=== PATIENT | male | born 1980 | race Caucasian/White ===

== ENCOUNTER 2024-09-27 15:16 | Outpatient (CLI) | payer OTHER, SELFPAY ==
--- NOTE | ~2024-09-27 | XR_ITS ---
EXAMINATION: XR chest 2V 09/27/2024 15:30 INDICATION: Cough PROCEDURE: 2 view chest COMPARISON: No prior studies for comparison. FINDINGS: The lungs are clear. There are calcified granulomas in the right lung. The cardiomediastina l silhouette is within normal limits. There are no pleural effusions. There is no pneumothorax susp ected. IMPRESSION: 1: NO ACUTE CARDIOPULMONARY DISEASE. Reviewed, dictated and finalized at location B. ING MANAGER
--- OUTSIDE RECORDS SUMMARY | 2024-10-03 23:53 | XMS_ITS | Clinical Summary ---
Author Organization [facility] [employer] Address [address] [place] [address] Care Team Providers Care Sueding Machine Operator Name Role Phone Unavailable Primary Care Provider Unavailabl e Source Comments [facility],non-owned Affiliates and Associated Physician Practices is amultiple site organization consisting of ambulatory clinics and hospital sitesin [place], [place] and [place]. This disclosure is being madepursuant to the Care Everywhere program and may not contain all information available regarding this patient. Last updated 18.[facility] [employer] Allergies No known active allergies Medications * Be aware that medications may not be up to date on this document. Alwaysverify current medications with the patient. Medication Sig Dispensed Refills Start Date End Date Status meloxicam (MOBIC) 15 MG tabletIndications:Rot ator cuff injury, right, initial encounter Take 1 (one) tablet by mouth once daily 30 tablet 2 02/13/2021 Active Active Problems No known active problems Immunizations Name Administration Dates Next Due INFLUENZA VACCINE, QUADR. (F LUZONE; FLULAVAL; FLUARIX; AFLURIA QUADRIVALENT; 6MO+), 0.5 ML (IIV4) 08/03/2020 Family History Medical History Relation Name Comments Glaucoma Mother Relation Name Status Comments Mother Social History Tobacco Use Types Packs/Day Years Used Date Smoking Tobacco: Never Smokeless Tobacco: Never Alcohol Use Standard Drinks/Week Comments Yes 0 (1 standard drink = 0.6 oz pur e alcohol) occasional Sex and Gender Information Value Date Recorded Sex Assigned at Not on file Gender Identity Not on file Sexual Orientation Not on file Last Filed Vital Signs Vital Sign Reading Time Taken Comments Blood Pressure - - Pulse - - Temperature - - Respiratory Rate - - Oxygen Saturation - - Inhaled Oxygen Concentration - - Weight 78 kg (172 lb) 02/13/2021 8:34 AM CDT Height 182.9 cm (6') 02/13/2021 8:34 AM CDT Body Mass Index 23.33 02/13/2021 8:34 AM CDT Plan of Treatment Health Maintenance Due Date Last Done Comments COLOGUARD (AGES 45-75) - COL ON CA SCREENING 1978 COLON MONITORING 1978 COLONOSCOPY - COLON CA SCREENING 1978 CT COLONOGRAPHY - COLON CA SCREENING 1978 Colorectal Cancer Screening 1978 FIT - COLON CA SCREENING 1978 FLEX SIG - COLON CA SCREENING 1978 LIPID TESTING 1978 HIV SCREENING 1993 HEPATITIS C SCREENING 12/20/1996 DTAP/TDAP/TD VACCINES (1 - Tdap) 1997 HEPATITIS B VACCINE (1 of 3 - 19+ 3-dose series) 1997 COVID-19 VACCINE ( - 2023-2 5 season) 2024 11/06/2020, 10/14/2020 INFLUENZA VACCINE (#1) 2024 08/03/2020 DEPRESSION SCREENING 09/21/2024 ZOSTER VACCINE (1 of 2) 2028 HIB VACCINE Aged Out No longer eligi ble based on patient's age to complete this topic HPV VACCINE Aged Out No longer eligi ble based on patient's age to complete this topic MENINGOCOCCAL (Group B) VACCINE Aged Out No longer eligible b ased on patient's age to complete this topic MENINGOCOCCAL VACCINE Aged Out No ligia edwardo eligible based on patient's age to complete this topic PNEUMOCOCCAL VACCINE Aged Out No long er eligible based on patient's age to complete this topic
--- OUTSIDE RECORDS SUMMARY | 2024-10-03 23:53 | XMS_ITS | Encounter Summary ---
Author Organization [facility] Address [address] [place] [address]. [place] [address] [place] [address] Care Team Providers Care Skilled Helper Name Role Phone Unavailable Primary Care Provider Unavailabl e Encounter Details Date Type Department Care Team (Late st Contact Info) Description 10/12/2017 Orders Only [facility] [place] [address] Ellie Azevedo NP [address] [place], [place] [id number] Social History Tobacco Use Types Packs/Day Years Used Date Smoking Tobacco: Never Assessed Sex and Gender Information Value Date Recorded Sex Assigned at Not on file Legal Sex Male 8:16 PM CDT Gender Identity Not on file Sexual Orientation Not on file documented as of this encounter Plan of Treatment Not on file documented as of this encounter Procedures Procedure Name Priority Date/Time Associated Diagnosis Comments HIV 1 ANTIGEN(S), WITH HIV-1 AND HIV-2 ANTIBODIES Routine 10/12/2017 12:03 PM ELASTIC ATTACHER COVERSTITCH Generalized hyperhidrosis TSH W/REFLEX Routine 10/12/2017 12:03 PM ELASTIC ATTACHER COVERSTITCH Generalized hyperhidrosis PROSTATE SPECIFIC ANTIGEN,TOTAL Routine 10/12/2017 12:03 PM ELASTIC ATTACHER COVERSTITCH Generalized hyperhidrosis DIRECT BILIRUBIN Routine 10/12/2017 12:0 3 PM ELASTIC ATTACHER COVERSTITCH CBC W/DIFF AUTOMATED Routine 10/12/2017 12:03 PM ELASTIC ATTACHER COVERSTITCH Generalized hyperhidrosis documented in this encounter Results * DIRECT BILIRUBIN (10/12/2017 12:03 PM ELASTIC ATTACHER COVERSTITCH) BILIRUBIN DIRECT S/P/B 0.1 0.0 - 0.20 MG/DL 10/12/2017 9:48 PM ELASTIC ATTACHER COVERSTITCH [facility] 10/12/2017 12:0 3 PM ELASTIC ATTACHER COVERSTITCH [facility] LABORATORY Final Result Performing Organization Address City/[facility] Co de Phone Number [facility] [address] [place] [address], [place] [phone] * HIV 1 ANTIGEN(S), WITH HIV-1 AND HIV-2 ANTIBODIES (10/12/2017 12:03 PM ELASTIC ATTACHER COVERSTITCH) Pathologist [facility] HIV 1/2 AB+ HIV1 P24 AG NON-REACTI VE NON-REACTI VE 10/12/2017 10:28 PM ELASTIC ATTACHER COVERSTITCH [facility] 10/12/2017 12:0 3 PM ELASTIC ATTACHER COVERSTITCH [facility] LABORATORY Final Result Performing Organization Address City/[facility] Co de Phone Number [facility] [address] [place] [address], [place] [phone] * PROSTATE SPECIFIC ANTIGEN,TOTAL (10/12/2017 12:03 PM ELASTIC ATTACHER COVERSTITCH) Pathologist [facility] PSA 0.68 <4.00 NG/ML 10/12/2017 9:48 PM ELASTIC ATTACHER COVERSTITCH [facility] Comment: Test was performed using the Siemens method. ??Results obtained with other assay methods or kits cannot be used interchangeably with results obtained by the Siemens method. 10/12/2017 12:0 3 PM ELASTIC ATTACHER COVERSTITCH [facility] GUEST ROOM ATTENDANT LABORATORY Final Result Performing Organization Address City/[facility]/ZIP Co de Phone Number [facility] [address] [place] [address], [place] [phone] * TSH W/REFLEX (10/12/2017 12:03 PM ELASTIC ATTACHER COVERSTITCH) TSH 2.460 0.358 - 3.74 uIU/ML 10/12/2017 9:48 PM ELASTIC ATTACHER COVERSTITCH [facility] Comment: HIGH DOSES OF BIOTIN MAY INTERFERE WITH THIS TEST RESULT. CORRELATION TO CLINICAL HISTORY AND PRESENTATION RECOMMENDED. FREE T4 NOT INDICATED 10/12/2017 12:0 3 PM ELASTIC ATTACHER COVERSTITCH [facility] GUEST ROOM ATTENDANT LABORATORY Final Result Performing Organization Address [facility] Co de Phone Number [facility] [address] [place] [address], [place] [phone] * (ABNORMAL) CBC W/DIFF AUTOMATED (10/12/2017 12:03 PM ELASTIC ATTACHER COVERSTITCH) WBC 5.2 4.8 - 10.8 x10'3/uL 10/12/2017 9:29 PM [facility] RBC 4.75 4.70 - 6.10 x10'6/uL 10/12/2017 9:29 PM [facility] HGB 14.7 14.0 - 18.0 G/DL 10/12/2017 9:29 PM [facility] HCT 42.7(L) 43.0 - 54.0 % 10/12/2017 9:29 PM [facility] MCV 89.9 80.0 - 94.0 FL 10/12/2017 9:29 PM [facility] MCH 30.9 27.0 - 31.0 PG 10/12/2017 9:29 PM ELASTIC ATTACHER COVERSTITCH [facility] MCHC 34.4 32.0 - 36.0 G/DL 10/12/2017 9:29 PM [facility] RDW 12.0 11.5 - 14.5 % 10/12/2017 9:29 PM [facility] PLT 284 130 - 400 x10'3/uL 10/12/2017 9:29 PM ELASTIC ATTACHER COVERSTITCH [facility] MPV 11.2 9.3 - 12.2 FL 10/12/2017 9:29 PM [facility] NEUTROPHILS % 49.8 43.0 - 65.0 % 10/12/2017 9:29 PM [facility] LYMPHOCYTES % 41.7 20.0 - 46.0 % 10/12/2017 9:29 PM [facility] MONOCYTES % 7.1 5.0 - 12.0 % 10/12/2017 9:29 PM [facility] EOSINOPHILS 0.6(L) 1.0 - 3.0 % 10/12/2017 9:29 PM [facility] BASOPHILS 0.6 0.0 - 1.0 % 10/12/2017 9:29 PM [facility] IMMATURE GRANS % 0.2 0.0 - 1.0 % 10/12/2017 9:29 PM [facility] 10/12/2017 12:0 3 PM ELASTIC ATTACHER COVERSTITCH us Ellie Azevedo NP LABORATORY Final Result [facility] [address] [place] [address], [place] [phone] documented in this encounter Visit Diagnoses Diagnosis Generalized hyperhidrosis documented in this encounter
--- OUTSIDE RECORDS SUMMARY | 2024-10-03 23:53 | XMS_ITS | Encounter Summary ---
Author Organization [facility] Address [address] [place] [address]. [place], [place] [phone] [place] [address] Care Team Providers Care Sound Effects Person Name Role Phone Unavailable Primary Care Provider Unavailabl e Encounter Details Date Type Department Care Team (Latest Contact Info) Description 10/12/2017 4:22 PM METAL FURNITURE ASSEMBLER - 10/12/2017 11:59 PM METAL FURNITURE ASSEMBLER Hospital Encounter [facility] [place] [address] Discharge Disposition: Home or Self Care (Routine Discharge) Social History Tobacco Use Types Packs/Day Years Used Date Smoking Tobacco: Never Assessed Sex and Gender Information Value Date Recorded Sex Assigned at Not on file Legal Sex Male 8:16 PM CDT Gender Identity Not on file Sexual Orientation Not on file documented as of this encounter Plan of Treatment Not on file documented as of this encounter Visit Diagnoses Not on filedocumented in this encounter
--- OUTSIDE RECORDS SUMMARY | 2024-10-03 23:53 | XMS_ITS | Encounter Summary ---
Author Organization [facility] Address [address] [place], [place] [address] [place] [address] Care Team Providers Care Wood Ski Maker Name Role Phone Unavailable Primary Care Provider Unavailabl e Encounter Details Date Type Department Care Team (Late st Contact Info) Description 09/26/2013 Abstract [facility] Family [facility] - [place] [address] [place] [id number] Juanito Landaverde MD [address] [place] [address] Social History Tobacco Use Types Packs/Day Years Used Date Smoking Tobacco: Never Assessed Sex and Gender Information Value Date Recorded Sex Assigned at Not on file Legal Sex Male 8:16 PM CDT Gender Identity Not on file Sexual Orientation Not on file documented as of this encounter Last Filed Vital Signs Vital Sign Reading Time Taken Comments Blood Pressure 122/72 09/26/2013 3:12 PM SUPERVISOR PHOTOCOMPOSITION Pulse 90 09/26/2013 3:12 PM SUPERVISOR PHOTOCOMPOSITION Temperature - - Respiratory Rate - - Oxygen Saturation - - Inhaled Oxygen Concentration - - Weight 83.5 kg (184 lb) 09/26/2013 3:12 PM SUPERVISOR PHOTOCOMPOSITION Height - - Body Mass Index 24.95 10/15/2012 9:25 AM SUPERVISOR PHOTOCOMPOSITION documented in this encounter Progress Notes * Juanito Landaverde MD - 09/26/2013 3:45 PM CST Reason For Visit Acute Visit Chief Complaint family had sinus infections and URI , having sx too. runny nose, congestion, no fever History of Present Illness HPI Free Text: He has been sick for the last 3 days. He is having a lot of nasal drainage, sinus pressure and LOZANO above the eyes. He has not had any fever. He has some hot sweats. He has no ear pain, but mild sore throat that he feels is due to drainage. He has a cough that is productive. He has no difficulty breathing through the mouth. He has had a son with a bilateral ear infection and a son with a sinus infection. His also was diagnosed with a sinus infection. He has not yet had a flu shot. Review of Systems Focused-Male: Constitutional: feeling poorly, chills, feeling tired and headache, but Normal. ENT: sore throat and nasal discharge, but normal. Cardiovascular: Normal. Respiratory: cough, but Normal. Gastrointestinal: diarrhea, but Normal. Genitourinary: Normal. Integumentary: Normal. Musculoskeletal: Normal. Neurological: Normal. Psychiatric: Normal. Active Problems 1. Acute Upper Respiratory Infection 465.9 Family History 1. Paternal grandfather's history of Carcinoma Of The Lung V16.1 Social History ?? Former Smoker V15.82 ?? Marital History - Currently Allergies 1. No Known Drug Allergies No Known Drug Allergies Vitals Signs [Data Includes: Current Encounter] 26Sep2013 03:12PM Temperature: 98.3 F Heart Rate: 90 Systolic: 122 Diastolic: 72 O2 Saturation: 95 BMI Calculated: 24.92 BSA Calculated: 2.06 Weight: 184 lb Physical Exam Constitutional General appearance: No acute distress, well appearing and well nourished. Eyes Conjunctiva and lids: No swelling, erythema, or discharge. Pupils and irises: Equal, round and reactive to light. Ears, Nose, Mouth, and Throat External inspection of ears and nose: Normal. Otoscopic examination: Tympanic membrance translucent with normal light reflex. Canals patent without erythema. Oropharynx: Normal with no erythema, edema, exudate or lesions. Pulmonary Respiratory effort: No increased work of breathing or signs of respiratory distress. Auscultation of lungs: Clear to auscultation. Cardiovascular Auscultation of heart: Normal rate and rhythm, normal S1 and S2, without murmurs. Examination of extremities for edema and/or varicosities: Normal. Abdomen Abdomen: Non-tender, no masses. Liver and spleen: No hepatomegaly or splenomegaly. Lymphatic Palpation of lymph nodes in neck: No lymphadenopathy. Musculoskeletal Gait and station: Normal. Psychiatric Orientation to person, place and time: Normal. Mood and affect: Normal. Assessment 1. Acute Upper Respiratory Infection 465.9 Plan 1. Sudafed 30 MG Oral Tablet; TAKE 1 TABLET EVERY 6 HOURS NEEDED; Therapy: to (Evaluate:08Oct2013); Last Rx:26Sep2013 2. Call if: The cough is not gone in 10 days. Done: 26Sep2013 3. Drink at least 6 glasses of water or juice a day. Done: 26Sep2013 4. Follow-up PRN Outpatient Follow-up Done: 26Sep2013 Discussion/Summary Discussion Summary Free Text: URI: Will use sudafed, nasal saline irrigation, and a sample of a nasal steroid. RTC if worsening. f/u as needed Signatures Electronically signed by : Juanito Landaverde M.D.; Sep 26 2013 3:41PM (Author) RVISOR PHOTOCOMPOSITION documented in this encounter Plan of Treatment Not on file documented as of this encounter Visit Diagnoses Not on filedocumented in this encounter
--- OUTSIDE RECORDS SUMMARY | 2024-10-03 23:53 | XMS_ITS | Encounter Summary ---
Author Organization [facility] Address [address] [place] [address]. [place] [address] [place] [address] Care Team Providers Care Psychology Assistant Name Role Phone Unavailable Primary Care Provider Unavailabl e Encounter Details Date Type Department Care Team (Late st Contact Info) Description 09/09/2016 Abstract [facility] Medical [facility] Family Medicine [address] [id number] Ellie Azevedo NP [address] [place] [id number] Social History Tobacco Use Types Packs/Day Years Used Date Smoking Tobacco: Never Assessed Sex and Gender Information Value Date Recorded Sex Assigned at Not on file Legal Sex Male 8:16 PM CDT Gender Identity Not on file Sexual Orientation Not on file documented as of this encounter Last Filed Vital Signs Vital Sign Reading Time Taken Comments Blood Pressure 138/82 09/09/2016 7:50 AM PROPERTY DISPOSAL MANAGER Pulse 69 09/09/2016 7:50 AM PROPERTY DISPOSAL MANAGER Temperature - - Respiratory Rate - - Oxygen Saturation - - Inhaled Oxygen Concentration - - Weight 82.1 kg (181 lb) 09/09/2016 7:50 AM PROPERTY DISPOSAL MANAGER Height 180.3 cm (5' 11 ) 09/09/2016 7:50 AM PROPERTY DISPOSAL MANAGER Body Mass Index 25.24 09/09/2016 7:50 AM PROPERTY DISPOSAL MANAGER documented in this encounter Progress Notes * Ellie Azevedo NP - 09/09/2016 7:30 AM CST Reason For Visit New Patient Visit Chief Complaint Patient is being seen today to get established as a new patient. History of Present Illness 35 yo M here to establish care His is my pt He denies any chest pain, palpitations, shortness of breath, h/a, changes of vision He does have seasonal allergies No F/C, no night sweats currently He does not smoke Family Hx reviewed He is a vegan Review of Systems See HPI for pertinent positives. Constitutional: Normal, no fever and no chills. ENT: normal. Cardiovascular: Normal, no chest pain and no palpitations. Respiratory: Normal, no shortness of breath, no cough and no wheezing. Gastrointestinal: Normal and no abdominal pain. Genitourinary: Normal. Musculoskeletal: Normal. Neurological: Normal and no confusion. Active Problems 1. Acute bronchitis (466.0) (J20.9) 2. Acute upper respiratory infection (465.9) (J06.9) 3. Diabetes mellitus screening (V77.1) (Z13.1) 4. GERD (gastroesophageal reflux disease) (530.81) (K21.9) 5. Influenza (487.1) (J11.1) 6. Lipid screening (V77.91) (Z13.220) 7. Memory change (780.93) (R41.3) 8. Pain in joint of left shoulder (719.41) (M25.512) 9. 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 History of Surgery Vas Deferens Vasectomy Family History Mother 1. No pertinent family history Paternal Grandfather 2. Family history of Carcinoma Of The Lung (V16.1) Social History ?? Exercise: Walking ?? Former smoker (V15.82) (Z87.891) ?? Marital History - Currently ? No illicit drug use ?? Occasional alcohol use ?? 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 No Reported Medications Recorded PARIS = N; ; Last Updated By: Rossy Donovan; 09/09/2016 8:03:54 AM Allergies 1. No Known Drug Allergies Recorded By: Yris Martin; 10/15/2012 9:29:22 AM Vitals Recorded: [id number] 07:50AM Temperature 97.1 F Heart Rate 69 Respiration 16 Systolic 138, RUE, Sitting Diastolic 82, RUE, Sitting O2 Saturation 98 Height 5 ft 11 in Weight 181 lb BMI Calculated 25.24 BSA Calculated 2.02 Physical Exam Constitutional General appearance: No acute distress, well appearing and well nourished. Eyes Conjunctiva and lids: No swelling, erythema, or discharge. Pupils and irises: Equal, round and reactive to light. Ears, Nose, Mouth, and Throat External inspection of ears and nose: Normal. Otoscopic examination: Abnormal. The right tympanic membrane was not red and was not bulging. The left tympanic membrane was not red and was not bulging. Exam of the right middle ear showed a middle ear effusion. Exam of the left middle ear showed a middle ear effusion. Oropharynx: Normal with no erythema, edema, exudate or lesions. Pulmonary Respiratory effort: No increased work of breathing or signs of respiratory distress. Auscultation of lungs: Clear to auscultation. Cardiovascular Palpation of heart: Normal PMI, no thrills. Auscultation of heart: Normal rate and rhythm, normal S1 and S2, without murmurs. Abdomen Abdomen: Non-tender, no masses. Lymphatic Palpation of lymph nodes in neck: No lymphadenopathy. Musculoskeletal Gait and station: Normal. Neurologic Cranial nerves: Cranial nerves 2-12 intact. Psychiatric Mood and affect: Normal. Assessment 1. Seasonal allergies (477.9) (J30.2) 2. Encounter to establish care (V65.8) (Z76.89) Plan Encounter to establish care 1. CBC W Differential; Status:Hold For - Manual Activation; Requested for:[id number]; Perform:[facility]; Due:09Oct2016;Ordered; For:Encounter to establish care; Ordered By:Ellie Azevedo; 2. Compr Metabolic Prof ( CMP ); Status:Hold For - Manual Activation; Requested for:[id number]; Perform:[facility]; Due:09Oct2016;Ordered; For:Encounter to establish care; Ordered By:Ellie Azevedo; 3. Lipid Profile; Status:Hold For - Manual Activation; Requested for:[id number]; Perform:[facility]; Due:09Oct2016;Ordered; For:Encounter to establish care; Ordered By:Ellie Azevedo; 4. TSH W Reflex Free T4; Status:Hold For - Manual Activation; Requested for:[id number]; Perform:[facility]; Due:09Oct2016;Ordered; For:Encounter to establish care; Ordered By:Ellie Azevedo; Seasonal allergies 5. Flonase Allergy Relief 50 MCG/ACT Nasal Suspension (Fluticasone Propionate); USE 1 SPRAY IN EACH NOSTRIL ONCE DAILY Rx By: Ellie Azevedo; Dispense: 0 Days ; #:1 X 15.8 ML Bottle (3 Bottles); Refill: 0; For: Seasonal allergies; PARIS = N; Verified Transmission to [facility]; Last Updated By: HERCAMOSHOP; 09/09/2016 8:08:12 AM 6. ZyrTEC Allergy 10 MG Oral Tablet; TAKE 1 TABLET AT BEDTIME Rx By: Ellie Azevedo; Dispense: 30 Days ; #:30 Tablet; Refill: 3; For: Seasonal allergies; PARIS = N; Verified Transmission to [facility]; Last Updated By: HERCAMOSHOP; 09/09/2016 8:08:12 AM Discussion/Summary HM - discussed seasonal allergies and treatment, f/u as needed -Colonoscopy: Not indicated. - Decrease caffeine intake, will improve BP -Yearly strategy consultant visits. Dentist twice a year. - Diet and exercise counseling: Discuss today. - Fasting labs: Ordered today. Followup yearly sooner if needed Signatures Electronically signed by : Ellie Azevedo NP; Sep 09 2016 1:01PM PROPERTY DISPOSAL MANAGER (Author) documented in this encounter Plan of Treatment Not on file documented as of this encounter Procedures Procedure Name Priority Date/Time Associated Diagnosis Comments TSH W/REFLEX Routine 09/09/2016 8:07 AM PROPERTY DISPOSAL MANAGER COMPREHENSIVE METABOLIC PANEL Routine 09/09/2016 8:07 AM PROPERTY DISPOSAL MANAGER LIPID PANEL Routine 09/09/2016 8:07 AM PROPERTY DISPOSAL MANAGER CBC W/DIFF AUTOMATED Routine 09/09/2016 8:07 AM PROPERTY DISPOSAL MANAGER documented in this encounter Results * TSH W/REFLEX (SNS) (09/09/2016 8:07 AM PROPERTY DISPOSAL MANAGER) TSH 1.93 0.27 - 4.20 mIU/mL [facility] TO [facility] CONVERSION Comment:Result Comment: FREE T4 NOT INDICATED 09/09/2016 8:07 AM PROPERTY DISPOSAL MANAGER 09/09/2016 8:07 AM PROPERTY DISPOSAL MANAGER Narrative [facility] TO [facility] CONVERSION - 09/09/2016 8:25 PM PROPERTY DISPOSAL MANAGER Result Communication: Mail Results to Patient Ellie Azevedo [facility] Final Result [facility] TO [facility] CONVERSION * (ABNORMAL) COMPREHENSIVE METABOLIC PANEL (09/09/2016 8:07 AM PROPERTY DISPOSAL MANAGER) SODIUM S/P/B 142 136 - 145 mmol/L [facility] TO [facility]IC CONVERSION POTASSIUM S/P/B 4.4 3.5 - 5.1 mmol/L [facility] TO [facility]IC CONVERSION CHLORIDE S/P/B 102 98 - 107 mmol/L [facility] TO [facility] CONVERSION CO2 29 22 - 29 mmol/L [facility] TO [facility]IC CONVERSION ANION GAP 15 8 - 20 [facility] T O EPIC CONVERSION BUN 9 8 - 23 mg/dL [facility] TO [facility]IC CONVERSION CREATININE S/P/B 0.69(L) 0.70 - 1.20 mg/dL [facility] TO [facility]IC CONVERSION GFR ESTIMATE >60 >60 mL/min/1 .73m'2 [facility] TO [facility]IC CONVERSION EGFR AFR. AMER. >60 NOTE: eGFR is not calculated for patients <18 years of age. This is an estimated GFR (CKD EPI) and should not be used for calculating drug doses. >60 mL/min/1 .73m'2 [facility] TO [facility]IC CONVERSION GLUCOSE 95 70 - 99 mg/dL [facility] TO [facility] CONVERSION CALCIUM S/P/B 9.6 8.6 - 10.2 mg/dL [facility] TO [facility]IC CONVERSION BILIRUBIN TOTAL S/P/B 0.3 0.2 - 1.2 mg/dL [facility] TO [facility]IC CONVERSION AST 21 0 - 40 U/L [facility] TO [facility] CONVERSION ALT 21 0 - 41 U/L [facility] TO [facility]IC CONVERSION ALKALINE PHOSPHATASE S/P/B 67 40 - 129 U/L [facility] TO [facility]IC CONVERSION TOTAL PROTEIN S/P/B 7.4 6.4 - 8.3 g/dL [facility] TO EPIC CONVERSION ALBUMIN S/P/B 4.9 3.5 - 5.2 g/dL [facility] TO [facility]IC CONVERSION GLOBULIN 2.5 2.3 - 3.6 g/dL [facility] TO [facility]IC CONVERSION A/G RATIO 2.0 1.0 - 2.0 [facility] TO [facility]IC CONVERSION 09/09/2016 8:07 AM PROPERTY DISPOSAL MANAGER 09/09/2016 8:07 AM PROPERTY DISPOSAL MANAGER Narrative [facility] TO [facility]IC CONVERSION - 09/09/2016 8:25 PM PROPERTY DISPOSAL MANAGER Result Communication: Mail Results to Patient us Ellie Azevedo NP LABORATORY Final Result [facility] TO [facility]IC CONVERSION * (ABNORMAL) LIPID PANEL (09/09/2016 8:07 AM PROPERTY DISPOSAL MANAGER) CHOLESTEROL 148 <200 MG/DL [facility] TO [facility]IC CONVERSION Comment: Result Comment: NOTE: Acetaminophen, N Acetyl p benzoquinone imine (NAPQI), N acetylcysteine (NAC), Metamizole, 4 Aminoantipyrine (4 AAP) and 4 Methylamino antipyrine (4 MAP) at high concentrations can cause falsely low results on Lactate, Uric Acid, Cholesterol, Triglyceride, HDL, and Direct LDL. TRIGLYCERIDES 100 <150 MG/DL [facility] TO [facility]IC CONVERSION HDL 52(L) >59 MG/DL [facility] TO EPIC CONVERSION LDL (CALCULATED) 76 <100 MG/DL [facility] TO [facility]IC CONVERSION NON HDL CHOLESTEROL 96 <130 MG/DL [facility] TO [facility]IC CONVERSION Comment: Result Comment: NOTE: WHEN THE TRIGLYCERIDES ARE >200 mg/dL, NON HDL C IS A SECONDARY TARGET OF THERAPY, WITH A GOAL 30 mg/dL HIGHER THAN THE IDENTIFIED LDL C GOAL. CHOL/HDL RATIO 2.8 0.0 - 4.5 [facility] TO [facility] CONVERSION VLDL CHOLESTEROL (LMP) 20 5 - 55 MG/DL [facility] TO EPIC CONVERSION LIPID INTERPRETATION NIH CONCENSUS REPORT RECOMMENDATI ONS: ?ADULT ?CHILD ??LOW RISK: ?CHOLESTERO L ? <200 ? <170 ?TRIGLYCERI DE ?<150 ?--- ?HDL ? >=60 ?--- ?LDL ? <100 ? <110 ?BORDERLINE : ?CHOLESTERO L ? 200-239 ?? 170-199 ?TRIGLYCERI DE ?150-199 ? --- ?HDL ?40-59 ?--- ?LDL ? 100-159 ?? 110-129 ?HIGH RISK: ?CHOLESTERO L ? >=240 ?>=200 ?TRIGLYCERI DE ?>=200 ? --- ?HDL ?<40 ?--- ?LDL ? >=160 ?>=130 [facility] TO [facility]IC CONVERSION 09/09/2016 8:07 AM PROPERTY DISPOSAL MANAGER 09/09/2016 8:07 AM PROPERTY DISPOSAL MANAGER Narrative [facility] TO EPIC CONVERSION - 09/09/2016 8:25 PM PROPERTY DISPOSAL MANAGER Result Communication: Mail Results to Patient Ellie Azevedo [facility] Final Result [facility] TO EPIC CONVERSION * CBC W/DIFF AUTOMATED (09/09/2016 8:07 AM PROPERTY DISPOSAL MANAGER) WBC 5.6 4.8 - 10.8 x10'3/uL [facility] TO [facility]IC CONVERSION RBC 4.87 4.70 - 6.10 x10'6/uL [facility] TO [facility]IC CONVERSION HGB 14.8 14.0 - 18.0 G/DL [facility] TO EPIC CONVERSION HCT 43.9 43.0 - 54.0 % [facility] TO EPIC CONVERSION MCV 90.1 80.0 - 94.0 FL [facility] TO EPIC CONVERSION MCH 30.4 27.0 - 31.0 PG [facility] TO [facility]IC CONVERSION MCHC 33.7 32.0 - 36.0 G/DL [facility] TO EPIC CONVERSION RDW 12.0 11.5 - 14.5 % [facility] TO [facility]IC CONVERSION PLT 275 130 - 400 x10'3/uL [facility] TO [facility]IC CONVERSION GLUCOSE 10.6 9.3 - 12.2 FL [facility] TO EPIC CONVERSION BASOPHILS % 0.7 0.0 - 1.0 % [facility] TO EPIC CONVERSION EOSINOPHILS % 2.0 1.0 - 3.0 % [facility] TO EPIC CONVERSION NEUTROPHILS % 54.9 43.0 - 65.0 % [facility] TO EPIC CONVERSION LYMPHOCYTES % 35.4 20.0 - 46.0 % [facility] TO EPIC CONVERSION IMMATURE GRANS % 0.2 0.0 - 1.0 % [facility] TO [facility]IC CONVERSION MONOCYTES 6.8 5.0 - 12.0 % [facility] TO EPIC CONVERSION 09/09/2016 8:07 AM PROPERTY DISPOSAL MANAGER 09/09/2016 8:07 AM PROPERTY DISPOSAL MANAGER Narrative [facility] TO EPIC CONVERSION - 09/09/2016 7:57 PM PROPERTY DISPOSAL MANAGER Result Communication: Mail Results to Patient Ellie Azevedo NP LABORATORY Final Result [facility] TO [facility]IC CONVERSION documented in this encounter Visit Diagnoses Not on filedocumented in this encounter
--- OUTSIDE RECORDS SUMMARY | 2024-10-03 23:53 | XMS_ITS | Encounter Summary ---
Author Organization [facility] Address [facility]. [place], [place] [address] [place] [address] Care Team Providers Care Wax Pattern Coater Name Role Phone Unavailable Primary Care Provider Unavailabl e Encounter Details Date Type Department Care Team (Late st Contact Info) Description 01/02/2014 Abstract [facility] Medical Group Family Medicine - [place] [address] [place] [address] Laura Bailey DO [address] [place] [address] Social History Tobacco Use Types Packs/Day Years Used Date Smoking Tobacco: Never Assessed Sex and Gender Information Value Date Recorded Sex Assigned at Not on file Legal Sex Male 8:16 PM CDT Gender Identity Not on file Sexual Orientation Not on file documented as of this encounter Last Filed Vital Signs Vital Sign Reading Time Taken Comments Blood Pressure 104/68 01/02/2014 1:45 PM CDT Pulse 72 01/02/2014 1:45 PM CDT Temperature - - Respiratory Rate - - Oxygen Saturation - - Inhaled Oxygen Concentration - - Weight 83 kg (183 lb) 01/02/2014 1:45 PM CDT Height - - Body Mass Index 24.82 10/15/2012 9:25 AM INTERNAL COMBUSTION ENGINE INSPECTOR documented in this encounter Progress Notes * Laura Bailey DO - 01/02/2014 2:00 PM CDT Reason For Visit Reason For Visit: Acute Visit Chief Complaint Chief Complaint Free Text: 102.7 fever yesterday. Feels fluid in the lungs. Swelling and sore throat. A lot of coughing. Started about a week ago. Got bad Thursday. Bad body aches, very fatigue. Now has broke his fever and is sweating constantly. Chills. RNB History of Present Illness HPI Free Text: Patient is a 33 year old male here for 4 days of fever, chills and cough. Fever did finally appear to break last night with Tylenol and Motrin and he has continued the Tylenol since then but still feels the chills and productive cough. Bronchitis, Acute, Adult (Brief): The patient is being seen for an initial evaluation of acute bronchitis. Symptoms: productive cough, fever and stuffy nose, but no non-productive cough, no wheezing,no shortness of breath, no fatigue, no myalgias, no sore throat, no pleuritic chest pain and no chest pain. Associated symptoms: postnasal drainage, but no headache, no eye itching and no hemoptysis. Review of Systems Focused-Male: Constitutional: fever and chills. ENT: nasal discharge, but no nosebleeds. Cardiovascular: no chest pain and no palpitations. Active Problems 1. Acute upper respiratory infection (465.9) (J06.9) Past Medical History Patient indicats no significant past medical history. Surgical History Patient indicates no past surgical history. Family History Paternal Grandfather 1. Family history of Carcinoma Of The Lung (V16.1) Social History ?? Former smoker (V15.82) (Z87.891) ?? Marital History - Currently Current Meds 1. No Reported Medications Recorded PARIS = N; Record; Last Updated By: Evie Lobato; 01/02/2014 2:09:12 PM Allergies 1. No Known Drug Allergies Recorded By: Yris Martin; 10/15/2012 9:29:22 AM Vitals Vital Signs [Data Includes: Current Encounter] Recorded by : Evie Lobato at 02Jan2014 01:45PM Temperature 98.9 F Heart Rate 72 Respiration 16 Systolic 104 Diastolic 68 Weight 183 lb BMI Calculated 24.82 BSA Calculated 2.05 Physical Exam Constitutional General appearance: Abnormal. Acutely ill. Eyes Conjunctiva and lids: No swelling, erythema, or discharge. Ears, Nose, Mouth, and Throat External inspection [...] rhythm, normal S1 and S2, without murmurs. Assessment 1. Acute bronchitis (466.0) (J20.9) Plan 1. Start: Azithromycin 250 MG Oral Tablet; Take 2 tablets today, then 1 tablet daily for 4 days Rx By: Laura Bailey; Dispense: 0 Days ; #:6 Tablet; Refill: 0; For: Acute bronchitis; PARIS = N; Verified Transmission to [id number]; Last Updated By: Kelin Castellano; 01/02/2014 2:17:49 PM Signatures Electronically signed by : Laura Bailey D.O.; Jan 02 2014 2:42PM INTERNAL COMBUSTION ENGINE INSPECTOR (Author) documented in this encounter Plan of Treatment Not on file documented as of this encounter Visit Diagnoses Not on filedocumented in this encounter
--- OUTSIDE RECORDS SUMMARY | 2024-10-03 23:53 | XMS_ITS | Encounter Summary ---
Author Organization [facility] Address [address] [place] [address] [place] [address] Care Team Providers Care Quality Control Engineer Name Role Phone Unavailable Primary Care Provider Unavailabl e Encounter Details Date Type Department Care Team (Latest Contact Info) Description 04/19/2014 Abstract [facility] Leo Lauraluci Lugo, [address] [place] [address] Social History Tobacco Use Types Packs/Day Years [...] Date/Time Associated Diagnosis Comments TSH W/REFLEX Routine 04/19/2014 8:31 AM CDT VITAMIN B-12 Routine 04/19/2014 8:31 AM CDT BASIC METABOLIC PANEL Routine 04/19/2014 8:31 AM CDT LIPID PANEL Routine 04/19/2014 8:31 AM CDT IRON BINDING TEST Routine 04/19/2014 8:3 1 AM CDT CBC W/DIFF AUTOMATED Routine 04/19/2014 8:31 AM CDT VITAMIN D, 25 OH Routine 04/19/2014 8:31 AM CDT documented in this encounter Results * IRON BINDING TEST (04/19/2014 8:31 AM CDT) IRON 75 45 - 170 mcg/dL [facility] TO EPIC CONVERSION IRON BINDING CAPACITY 354 250 - 425 mcg/dL [facility] TO EPIC CONVERSION % SATURATION 21 20 - 50 % (calc) [facility] TO EPIC CONVERSION Comment: Result Comment: Test Performed at: [facility] [place] [address] [place], [place] ??[phone] ? ROSANA LOCKHART DO,MPH 04/19/2014 8:31 AM CDT 04/19/2014 8:31 AM CDT Narrative [facility] TO EPIC CONVERSION - 04/19/2014 8:33 AM CDT Result Communication: No patient communication needed at this time Laura Bailey DO LABORATORY Final Result [facility] TO EPIC CONVERSION * (ABNORMAL) VITAMIN D, 25 OH (04/19/2014 8:31 AM CDT) Pathologist [facility] VITAMIN D 25 HYDROXY TOTAL S/P/B 29(L) 30 - 100 ng/mL [facility] TO EPIC CONVERSION Comment: Result Comment: ?? 25-OHD3 indicates both endogenous production and supplementation. 25-OHD2 is an indicator of exogenous sources, such as diet or supplementation. Therapy is based on measurement of Total 25-OHD, with levels <20 ng/mL indicative of Vitamin D deficiency, while levels between 20 ng/mL and 30 ng/mL suggest insufficiency. Optimal levels are > or = 30 ng/mL. VITAMIN D 25 HYDROXY D3 S/P/B 29 See Below ng/mL [facility] TO EPIC CONVERSION Comment:Result Comment: Refe rence Range: Not established VITAMIN D 25 HYDROXY D2 S/P/B <4 See Below ng/mL [facility] TO EPIC CONVERSION Comment: Result Comment: Reference Range: Not established REPORT COMMENT: FASTING Test Performed at: [facility] [address] [place], [place] ??[address] ? DELPHINE STEVENS MD,FCAP 04/19/2014 8:31 AM CDT 04/19/2014 8:31 AM CDT Narrative [facility] TO EPIC CONVERSION - 04/19/2014 8:33 AM CDT Result Communication: No patient communication needed at this time Laura Bailey DO LABORATORY Final Result [facility] TO EPIC CONVERSION * CBC W/DIFF AUTOMATED (04/19/2014 8:31 AM CDT) WBC 4.6 3.8 - 10.8 [facility] TO EPIC CONVERSION Comment:Result Comment: UNIT S: Thousand/uL Red Blood Cell Count 4.66 4.20 - 5.80 Million/uL [facility] TO EPIC CONVERSION HGB 14.3 13.2 - 17.1 g/dL [facility] TO EPIC CONVERSION HCT 42.0 38.5 - 50.0 % [facility] TO EPIC CONVERSION MCV 90.1 80.0 - 100.0 fL [facility] TO EPIC CONVERSION MCH (QHPE) 30.6 27.0 - 33.0 pg [facility] TO EPIC CONVERSION MCHC 34.0 32.0 - 36.0 g/dL [facility] TO EPIC CONVERSION RDW (QHPE) 13.1 11.0 - 15.0 % [facility] TO EPIC CONVERSION PLT 285 140 - 400 [facility] T O EPIC CONVERSION Comment:Result Comment: UNIT S: Thousand/uL ABS. NEUTROPHILS 2498 1500 - 7800 cells/uL [facility] TO EPIC CONVERSION ABS. LYMPHOCYTES 1697 850 - 3900 cells/uL [facility] TO EPIC CONVERSION ABS. MONOCYTES 317 200 - 950 cells/uL [facility] TO EPIC CONVERSION ABS. EOSINOPHILS 55 15 - 500 cells/uL [facility] TO EPIC CONVERSION ABS. BASOPHILS 32 0 - 200 cells/uL [facility] TO EPIC CONVERSION SEG NEUTROPHILS 54.3 % [facility] ROUP TO EPIC CONVERSION LYMPHOCYTES 36.9 % [facility] TO EPIC CONVERSION MONOCYTES 6.9 % [facility] T O EPIC CONVERSION EOSINOPHILS 1.2 % [facility] TO EPIC CONVERSION BASOPHILS 0.7 % [facility] T O EPIC CONVERSION Comment: Result Comment: Test Performed at: [email or web address] [address] [address] [place] [facility] [place] ??[phone] ? ROSANA LOCKHART DO,MPH 04/19/2014 8:31 AM CDT 04/19/2014 8:31 AM CDT Narrative [facility] TO EPIC CONVERSION - 04/19/2014 8:33 AM CDT Result Communication: No patient communication needed at this time Laura Bailey DO LABORATORY Final Result [facility] TO EPIC CONVERSION * BASIC METABOLIC PANEL (04/19/2014 8:31 AM CDT) Pathologist [facility] GLUCOSE 87 65 - 99 mg/dL [facility] TO EPIC CONVERSION Comment: Result Comment: ? Fasting reference interval BUN 9 7 - 25 mg/dL [facility] TO EPIC CONVERSION CREATININE S/P/B 0.89 0.60 - 1.35 mg/dL [facility] TO EPIC CONVERSION EGFR NON-AFR. AMER. 111 > OR = 60 [facility] TO EPIC CONVERSION Comment:Result Comment: UNIT S: mL/min/1.73m2 EGFR AFR. AMER. 128 > OR = 60 [facility] ROUP TO EPIC CONVERSION Comment:Result Comment: UNIT S: mL/min/1.73m2 BUN CREATININE RATIO NOT APPLICABLE 6 - 22 (calc) [facility] TO EPIC CONVERSION SODIUM S/P/B 143 135 - 146 mmol/L [facility] TO EPIC CONVERSION POTASSIUM S/P/B 5.1 3.5 - 5.3 mmol/L [facility] TO EPIC CONVERSION CHLORIDE S/P/B 106 98 - 110 mmol/L [facility] TO EPIC CONVERSION CO2 26 19 - 30 mmol/L [facility] TO EPIC CONVERSION CALCIUM S/P/B 9.8 8.6 - 10.3 mg/dL [facility] TO EPIC CONVERSION Comment: Result Comment: Test Performed at: [facility] [employer] [employer] [address] [place] [address] ??[phone] ? ROSANA LOCKHART DO,MPH 04/19/2014 8:31 AM CDT 04/19/2014 8:31 AM CDT Narrative [facility] TO EPIC CONVERSION - 04/19/2014 8:33 AM CDT Result Communication: No patient communication needed at this time Laura Brittney Hennon DO LABORATORY Final Result Performing Organization Address [facility]/ZIP Co de Phone Number [facility] TO EPIC CONVERSION * TSH W/REFLEX (SNS) (04/19/2014 8:31 AM CDT) TSH 1.46 0.40 - 4.50 mIU/L [facility] TO EPIC CONVERSION Comment: Result Comment: Test Performed at: [facility] ??[phone] ? ROSANA LOCKHART DO,MPH 04/19/2014 8:31 AM CDT 04/19/2014 8:31 AM CDT Narrative [facility] TO EPIC CONVERSION - 04/19/2014 8:33 AM CDT Result Communication: No patient communication needed at this time Laura Bailey DO LABORATORY Final Result Performing Organization Address [facility] de Phone Number [facility] TO EPIC CONVERSION * LIPID PANEL (04/19/2014 8:31 AM CDT) CHOLESTEROL 128 125 - 200 mg/dL [facility] TO EPIC CONVERSION HDL 42 > OR = 40 mg/dL [facility] TO EPIC CONVERSION TRIGLYCERIDES 106 <150 mg/dL [facility] OUP TO EPIC CONVERSION LDL (CALCULATED) 65 <130 [facility] TO EPIC CONVERSION Comment: Result Comment: UNITS: mg/dL (calc) Desirable range <100 mg/dL for patients with CHD or diabetes and <70 mg/dL for diabetic patients with known heart disease. CHOL/HDL RATIO 3.0 < OR = 5.0 (calc) [facility] TO EPIC CONVERSION NON HDL CHOLESTEROL 86 [facility] TO EPIC CONVERSION Comment: Result Comment: UNITS: mg/dL (calc) Target for non-HDL cholesterol is 30 mg/dL higher than LDL cholesterol target. Test Performed at: [facility] [place], [place] ??[phone] ? ROSANA LOCKHART DO,MPH 04/19/2014 8:31 AM CDT 04/19/2014 8:31 AM CDT Narrative [facility] TO EPIC CONVERSION - 04/19/2014 8:33 AM CDT Result Communication: No patient communication needed at this time Laura Bailey DO LABORATORY Final Result [facility] TO EPIC CONVERSION * VITAMIN B-12 (04/19/2014 8:31 AM CDT) VITAMIN B12 S/P/B 333 200 - 1100 pg/mL [facility] TO EPIC CONVERSION Comment: Result Comment: ?? Please Note: Although the reference range for vitamin B12 is 200-1100 pg/mL, it has been reported that between 5 and 10% of patients with values between 200 and 400 pg/mL may experience neuropsychiatric and hematologic abnormalities due to occult B12 deficiency; less than 1% of patients with values above 400 pg/mL will have symptoms. Test Performed at: [facility] ??[phone] ? ROSANA LOCKHART DO,MPH 04/19/2014 8:31 AM CDT 04/19/2014 8:31 AM CDT Narrative [facility] TO EPIC CONVERSION - 04/19/2014 8:33 AM CDT Result Communication: No patient communication needed at this time Laura Bailey DO LABORATORY Final Result Performing Organization Address [facility]/ZIP Co de Phone Number [facility] TO EPIC CONVERSION documented in this encounter Visit Diagnoses Not on filedocumented in this encounter
--- OUTSIDE RECORDS SUMMARY | 2024-10-03 23:53 | XMS_ITS | Encounter Summary ---
Author Organization [facility] Address [facility] [facility]. [place], [place] [address] [place] [address] Care Team Providers Care Watchstander Name Role Phone Unavailable Primary Care Provider Unavailabl e Encounter Details Date Type Department Care Team (Late st Contact Info) Description 10/09/2011 Abstract [facility] [place] [address] Laura Bailey, [address] [place] [address] Social History Tobacco Use Types Packs/Day Years Used Date Smoking Tobacco: Never Assessed Sex and Gender Information Value Date Recorded Sex Assigned at Not on file Legal Sex Male 8:16 PM CDT Gender Identity Not on file Sexual Orientation Not on file documented as of this encounter Plan of Treatment Not on file documented as of this encounter Visit Diagnoses Diagnosis Fever due to unspecified condition documented in this encounter
--- OUTSIDE RECORDS SUMMARY | 2024-10-03 23:53 | XMS_ITS | Encounter Summary ---
Author Organization [facility] Address [address] [place] [address]. [place], [place] [address] [place] [address] Care Team Providers Care Fitness Teacher Name Role Phone Unavailable Primary Care Provider Unavailabl e Encounter Details Date Type Department Care Team (Latest Contact Info) Description 01/24/2014 Abstract [facility] Social History Tobacco Use Types Packs/Day Years [...]
--- OUTSIDE RECORDS SUMMARY | 2024-10-03 23:53 | XMS_ITS | Encounter Summary ---
Author Organization [facility] Address [facility] [facility] [place] [address] [place] [address] Care Team Providers Care Outpatient Pharmacy Manager Name Role Phone Unavailable Primary Care Provider Unavailabl e Encounter Details Date Type Department Care Team (Latest Contact Info) Description 10/12/2017 Abstract [facility] Ellie Azevedo NP [address] [place] [address] Social History Tobacco Use Types Packs/Day Years [...] Procedure Name Priority Date/Time Associated Diagnosis Comments DIRECT BILIRUBIN Routine 10/12/2017 12:0 3 PM INTERNAL CONTROLS MANAGER documented in this encounter Results * DIRECT BILIRUBIN (10/12/2017 12:03 PM INTERNAL CONTROLS MANAGER) BILIRUBIN DIRECT S/P/B 0.1 0.0 - 0.20 MG/DL [facility] TO EPIC CONVERSION 10/12/2017 12:0 3 PM INTERNAL CONTROLS MANAGER 10/12/2017 12:03 PM INTERNAL CONTROLS MANAGER Narrative [facility] TO EPIC CONVERSION - 10/12/2017 9:48 PM INTERNAL CONTROLS MANAGER Result Communication: Call patient with results us Ellie Azevedo NP LABORATORY Final Result [facility] TO EPIC CONVERSION documented in this encounter Visit Diagnoses Not on filedocumented in this encounter
--- OUTSIDE RECORDS SUMMARY | 2024-10-03 23:53 | XMS_ITS | Encounter Summary ---
Author Organization [facility] Address [address] [place] [address]. [place] [address] [place] [address] Care Team Providers Care Cleaner Touch Up Worker Name Role Phone Unavailable Primary Care Provider Unavailabl e Encounter Details Date Type Department Care Team (Late st Contact Info) Description 10/12/2017 Abstract [facility] Family Medicine [facility] [address] [place] [address] Ellie Azevedo NP [address] [place] [address] Social History Tobacco Use Types Packs/Day Years Used Date Smoking Tobacco: Never Assessed Sex and Gender Information Value Date Recorded Sex Assigned at Not on file Legal Sex Male 8:16 PM CDT Gender Identity Not on file Sexual Orientation Not on file documented as of this encounter Last Filed Vital Signs Vital Sign Reading Time Taken Comments Blood Pressure 118/75 10/12/2017 1:42 PM FINANCING ANALYST Pulse 74 10/12/2017 1:42 PM FINANCING ANALYST Temperature - - Respiratory Rate - - Oxygen Saturation - - Inhaled Oxygen Concentration - - Weight 86.2 kg (190 lb) 10/12/2017 11:29 AM FINANCING ANALYST Height - - Body Mass Index 26.5 09/09/2016 7:50 AM FINANCING ANALYST documented in this encounter Progress Notes * Ellie Azevedo NP - 10/12/2017 11:20 AM CST Reason For Visit Patient is being seen today for bilateral ear pain and drainage as well as vertigo x 2 months. Chief Complaint 1. Ear Pain History of Present Illness 36 yo M c/o bilateral ear pain and drainage as well as vertigo x 2 months. intermittent night sweats since this started he has tried OTC Tx with no improvement has not seen a provider for this yet Sx make him feel foggy minimal to no Sx today other than ear pressure no c/o dizziness, h/a, CP, palpitations, shortness of breath, no changes of vision he says it felt like he had [place] in Nov because he also had a sore throat sore throat resolved Review of Systems See HPI for pertinent positives. Constitutional: Normal, no fever and no chills. Cardiovascular: Normal, no chest pain and no palpitations. Respiratory: Normal, no shortness of breath, no cough and no wheezing. Gastrointestinal: Normal, no abdominal pain, no vomiting and no nausea. Genitourinary: Normal, no dysuria and no incontinence. Musculoskeletal: Normal. Neurological: Normal, no confusion, no dizziness, no limb weakness, no difficulty walking, no fainting and no convulsions. Active Problems 1. Diabetes mellitus screening (V77.1) (Z13.1) 2. Encounter to establish care (V65.8) (Z76.89) 3. GERD (gastroesophageal reflux disease) (530.81) (K21.9) 4. Lipid screening (V77.91) (Z13.220) 5. Middle ear effusion (381.4) (H65.90) 6. Pain in joint of left shoulder (719.41) (M25.512) 7. Seasonal allergies (477.9) (J30.2) 8. 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 History of Surgery Vas Deferens Vasectomy Family History Mother 1. No pertinent family history Paternal Grandfather 2. Family history of Carcinoma Of The Lung (V16.1) Social History ?? Exercise: Walking ?? Former smoker (V15.82) (Z87.891) ?? Marital History - Currently ? No illicit drug use ?? Occasional alcohol use ?? 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 No Reported Medications Recorded PARIS = N; ; Last Updated By: Rossy Donovan; 10/12/2017 12:34:49 PM Allergies 1. No Known Drug Allergies Recorded By: Yris Martin; 10/15/2012 9:29:22 AM Vitals Printed in Appendix #1 below. Physical Exam Constitutional General appearance: No acute distress, well appearing and well nourished. Eyes Conjunctiva and lids: No swelling, erythema, or discharge. Pupils and irises: Equal, round and reactive to light. Ears, Nose, Mouth, and Throat External inspection of ears and nose: Normal. Otoscopic examination: Abnormal. The right tympanic membrane was red and was retracted, but was notbulging. The left tympanic membrane was red and was retracted, but was not bulging. The right external canal was normal. The left external canal was normal. Exam of the right middle ear showed a middle ear effusion. Exam of the left middle ear showed a middle ear effusion. Oropharynx: Normal with no erythema, edema, exudate or lesions. tonsils 2+, no erythema, no swelling, uvula midline, no exudate.. Pulmonary Respiratory effort: No increased work of [...] Neurologic Cranial nerves: Cranial nerves 2-12 intact. neg romberg test.. Psychiatric Mood and affect: Normal. Results/Data *Salem Spot Test In Office 12Oct2017 12:14PM Ellie Azevedo Test Name Result Flag Reference Salem Spot In Office Negative Internal QC Verified Yes Assessment 1. Night sweats (780.8) (R61) 2. Fatigue (780.79) (R53.83) 3. Sinusitis, chronic (473.9) (J32.9) 4. Middle ear effusion (381.4) (H65.90) Plan Fatigue, Night sweats 1. *Salem Spot Test In Office; Status:Resulted - Requires Verification; Done: 12Oct2017 12:14PM Performed:In Office; Due:[id number]; Last Updated By:Noemi Montenegro; 10/12/2017 12:17:14 PM;Ordered; For:Fatigue, Night sweats; Ordered By:Ellie Azevedo; Night sweats 2. CBC W Differential; Status:In Progress - Specimen/Data Collected; Done: 12Oct2017 Perform:[facility]; Due:11Nov2017; Last Updated By:Noemi Montenegro; 10/12/2017 12:13:51PM;Ordered; For:Night sweats; Ordered By:Ellie Azevedo; 3. CMP / Liver; Status:In Progress - Specimen/Data Collected; Done: 12Oct2017 Perform:[facility]; Due:11Nov2017; Last Updated By:Noemi Montenegro; 10/12/2017 12:13:51PM;Ordered; For:Night sweats; Ordered By:Ellie Azevedo; 4. HIV AB AND ANTIGEN; Status:In Progress - Specimen/Data Collected; Done: 12Oct2017 Perform:[facility]; Due:11Nov2017; Last Updated By:Noemi Montenegro; 10/12/2017 12:13:51PM;Ordered; For:Night sweats; Ordered By:Ellie Azevedo; 5. Prostate Specif Ag ( PSA ); Status:In Progress - Specimen/Data Collected; Done: 12Oct2017 Per[facility]; Due:11Nov2017; Last Updated By:Noemi Montenegro; 10/12/2017 12:13:51PM;Ordered; For:Night sweats; Ordered By:Ellie Azevedo; 6. TSH W Reflex Free T4; Status:In Progress - Specimen/Data Collected; Done: 12Oct2017 Perform:[facility]; Due:11Nov2017; Last Updated By:Noemi Montenegro; 10/12/2017 12:13:51PM;Ordered; For:Night sweats; Ordered By:Ellie Azevedo; Sinusitis, chronic 7. Amoxicillin-Pot Clavulanate 875-125 MG Oral Tablet; TAKE 1 TABLET EVERY 12 HOURS DAILY Rx By: Ellie Azevedo; Dispense: 10 Days ; #:20 Tablet; Refill: 0; For: Sinusitis, chronic; PARIS = N; [facility] [address]; Last Updated By: Kelin Castellano; 10/12/2017 12:35:59 PM 8. Fluticasone Propionate 50 MCG/ACT Nasal Suspension (Flonase Allergy Relief); USE 1 SPRAY IN EACH NOSTRIL ONCE DAILY Rx By: Ellie Azevedo; Dispense: 0 Days ; #:1 X 9.9 ML Bottle; Refill: 0; For: Sinusitis, chronic; PARIS = N; Verified Transmission to [email or web address]; Last Updated By: Cristal [facility]; 10/12/2017 12:36:00 PM 9. PredniSONE 20 MG Oral Tablet; TAKE 1 TABLET TWICE DAILY Rx By: Ellie Azevedo; Dispense: 5 Days ; #:10 Tablet; Refill: 0; For: Sinusitis, chronic; PARIS = N;Verified Transmission to [email or web address]; Last Updated By: Eddie Castell[employer]; 10/12/2017 12:36:01 PM Discussion/Summary neg orthostatics neg mono no red flags, no acute distress treat as chronic sinusitis Abx discussed and ordered take with food and probiotic Eustachian tube dysfunction noted discussed and had pt demonstrate Christine maneuvers, no abnormal findings neg romberg in office flonase prednisone Try OTC Tx f/u in 3-4 weeks if not improved Signatures Electronically signed by : Ellie Azevedo NP; Oct 12 2017 1:42PM FINANCING ANALYST (Author) Appendix #1 Patient: Vadim Felipe; : 1980; Recorded: 12Oct2017 01:41PM Recorded: 12Oct2017 01:40PM Recorded: 12Oct2017 11:29AM Heart Rate 74 67 65 62 Systolic 118, Standing 113, Sitting 117, Supine 130, RUE, Sitting Diastolic 75, Standing 72, Sitting 70, Supine 77, RUE, Sitting Temperature 98.1 F Respiration 16 O2 Saturation 96 Weight 190 lb BMI Calculated 26.5 BSA Calculated 2.06 documented in this encounter Plan of Treatment Not on file documented as of this encounter Procedures Procedure Name Priority Date/Time Associated Diagnosis Comments HETEROPHILE ANTIBODIES,SCREEN Routine 10/12/2017 12:14 PM FINANCING ANALYST HIV 1 ANTIGEN(S), WITH HIV-1 AND HIV-2 ANTIBODIES Routine 10/12/2017 12:03 PM FINANCING ANALYST TSH W/REFLEX Routine 10/12/2017 12:03 PM FINANCING ANALYST PROSTATE SPECIFIC ANTIGEN,TOTAL Routine 10/12/2017 12:03 PM FINANCING ANALYST CBC W/DIFF AUTOMATED Routine 10/12/2017 12:03 PM FINANCING ANALYST documented in this encounter Results * HETEROPHILE ANTIBODIES,SCREEN (10/12/2017 12:14 PM FINANCING ANALYST) HETEROPHILE ANTIBODIES Negative [facility] TO EPIC CONVERSION Internal Control: Yes [facility] TO EPIC CONVERSION 10/12/2017 12:1 4 PM FINANCING ANALYST 10/12/2017 12:14 PM FINANCING ANALYST Narrative [facility] TO EPIC CONVERSION - 10/12/2017 12:14 PM FINANCING ANALYST Result Communication: No patient communication needed at this time Ellie Roberto Carlos NP LABORATORY Final Result Performing Organization Address City/State/[facility] Co de Phone Number [facility] TO EPIC CONVERSION * PROSTATE SPECIFIC ANTIGEN,TOTAL (10/12/2017 12:03 PM FINANCING ANALYST) PSA 0.68 <4.00 NG/ML [facility] TO EPIC CONVERSION Comment: Result Comment: Test was performed using the Siemens method. ??Results obtained with other assay methods or kits cannot be used interchangeably with results obtained by the Siemens method. 10/12/2017 12:0 3 PM FINANCING ANALYST 10/12/2017 12:03 PM FINANCING ANALYST Narrative [facility] TO EPIC CONVERSION - 10/12/2017 9:48 PM FINANCING ANALYST Result Communication: Call patient with results [facility] Roberto Carlos [employer] [facility] LABORATORY Final Result [facility] TO EPIC CONVERSION * (ABNORMAL) CBC W/DIFF AUTOMATED (10/12/2017 12:03 PM FINANCING ANALYST) WBC 5.2 4.8 - 10.8 x10'3/uL [facility] TO EPIC CONVERSION RBC 4.75 4.70 - 6.10 x10'6/uL [facility] TO EPIC CONVERSION HGB 14.7 14.0 - 18.0 G/DL [facility] TO EPIC CONVERSION HCT 42.7(L) 43.0 - 54.0 % [facility] TO EPIC CONVERSION MCV 89.9 80.0 - 94.0 FL [facility] TO EPIC CONVERSION MCH 30.9 27.0 - 31.0 PG [facility] TO EPIC CONVERSION MCHC 34.4 32.0 - 36.0 G/DL [facility] TO EPIC CONVERSION RDW 12.0 11.5 - 14.5 % [facility] TO EPIC CONVERSION PLT 284 130 - 400 x10'3/uL [facility] TO EPIC CONVERSION GLUCOSE 11.2 9.3 - 12.2 FL [facility] TO EPIC CONVERSION IMMATURE GRANS % 0.2 0.0 - 1.0 % [facility] TO EPIC CONVERSION NEUTROPHILS % 49.8 43.0 - 65.0 % [facility] TO EPIC CONVERSION LYMPHOCYTES 41.7 20.0 - 46.0 % [facility] TO EPIC CONVERSION MONOCYTES 7.1 5.0 - 12.0 % [facility] TO EPIC CONVERSION EOSINOPHILS 0.6(L) 1.0 - 3.0 % [facility] TO EPIC CONVERSION BASOPHILS 0.6 0.0 - 1.0 % [facility] TO EPIC CONVERSION 10/12/2017 12:0 3 PM FINANCING ANALYST 10/12/2017 12:03 PM FINANCING ANALYST Narrative [facility] TO EPIC CONVERSION - 10/12/2017 9:29 PM FINANCING ANALYST Result Communication: Call patient with results Ellie Azevedo NP LABORATORY Final Result [facility] TO EPIC CONVERSION * HIV 1 ANTIGEN(S), WITH HIV-1 AND HIV-2 ANTIBODIES (10/12/2017 12:03 PM FINANCING ANALYST) HIV 1/2 AB+ HIV1 P24 AG NON-REACTI VE NR [facility] TO EPIC CONVERSION 10/12/2017 12:0 3 PM FINANCING ANALYST 10/12/2017 12:03 PM FINANCING ANALYST Narrative [facility] TO EPIC CONVERSION - 10/12/2017 10:28 PM FINANCING ANALYST Result Communication: Call patient with results us Elliegabino Azevedo [employer] [facility] LABORATORY Final Result [facility] TO EPIC CONVERSION * TSH W/REFLEX (SNS) (10/12/2017 12:03 PM FINANCING ANALYST) TSH 2.460 0.358 - 3.74 uIU/ML [facility] TO EPIC CONVERSION Comment: Result Comment: HIGH DOSES OF BIOTIN MAY INTERFERE WITH THIS TEST RESULT. CORRELATION TO CLINICAL HISTORY AND PRESENTATION RECOMMENDED. FREE T4 NOT INDICATED 10/12/2017 12:0 3 PM FINANCING ANALYST 10/12/2017 12:03 PM FINANCING ANALYST Narrative [facility] TO EPIC CONVERSION - 10/12/2017 9:48 PM FINANCING ANALYST Result Communication: Call patient with results Ellie Azevedo CAFETER[employer] SERVER LABORATORY Final Result Performing Organization Address [facility]/ZIP Co de Phone Number [facility] TO EPIC CONVERSION documented in this encounter Visit Diagnoses Not on filedocumented in this encounter
--- OUTSIDE RECORDS SUMMARY | 2024-10-03 23:53 | XMS_ITS | Encounter Summary ---
Author Organization [facility] Address [address] [place] [address]. [place], [place] [id number] [place], [place] [id number] Care Team Providers Care Order Caller Name Role Phone Unavailable Primary Care Provider Unavailabl e Encounter Details Date Type Department Care Team (Latest Contact Info) Description 01/10/2014 Abstract [facility] Medical Group Social History Tobacco Use Types [...]
--- OUTSIDE RECORDS SUMMARY | 2024-10-03 23:53 | XMS_ITS | Encounter Summary ---
Author Organization [facility] Address [address] [place] [address]. [place] [address] [place] [address] Care Team Providers Care Snowboard Instructor Name Role Phone Unavailable Primary Care Provider Unavailabl e Encounter Details Date Type Department Care Team (Late st Contact Info) Description 10/12/2017 Orders Only [facility] [place] [address] Ellie Azevedo NP [address] [place], [place] [id number] Social History Tobacco Use Types Packs/Day Years Used Date Smoking Tobacco: Never Assessed Sex and Gender Information Value Date Recorded Sex Assigned at Not on file Legal Sex Male 8:16 PM CDT Gender Identity Not on file Sexual Orientation Not on file documented as of this encounter Plan of Treatment Not on file documented as of this encounter Results * HIV 1 ANTIGEN(S), WITH HIV-1 AND HIV-2 ANTIBODIES (10/12/2017 12:03 PM PRODUCT APPLICATIONS SCIENTIST) HIV 1/2 AB+ HIV1 P24 AG NON-REACTI VE NON-REACTI VE 10/12/2017 10:28 PM PRODUCT APPLICATIONS SCIENTIST [facility] 10/12/2017 12:0 3 PM PRODUCT APPLICATIONS SCIENTIST us Ellie Azevedo NP LABORATORY Final Result [facility] [address] [place] [address], * PROSTATE SPECIFIC ANTIGEN,TOTAL (10/12/2017 12:03 PM PRODUCT APPLICATIONS SCIENTIST) Pathologist [facility] PSA 0.68 <4.00 NG/ML 10/12/2017 9:48 PM PRODUCT APPLICATIONS SCIENTIST [facility] Comment: Test was performed using the Siemens method. ??Results obtained with other assay methods or kits cannot be used interchangeably with results obtained by the Siemens method. 10/12/2017 12:0 3 PM PRODUCT APPLICATIONS SCIENTIST [facility] LABORATORY Final Result [facility] [address] [place] [address], [place] [phone] * TSH W/REFLEX (10/12/2017 12:03 PM PRODUCT APPLICATIONS SCIENTIST) Pathologist [facility] TSH 2.460 0.358 - 3.74 uIU/ML 10/12/2017 9:48 PM PRODUCT APPLICATIONS SCIENTIST [facility] Comment: HIGH DOSES OF BIOTIN MAY INTERFERE WITH THIS TEST RESULT. CORRELATION TO CLINICAL HISTORY AND PRESENTATION RECOMMENDED. FREE T4 NOT INDICATED 10/12/2017 12:0 3 PM PRODUCT APPLICATIONS SCIENTIST [facility] RELIGION DEPARTMENT CHAIR LABORATORY Final Result [facility] [address] [place] [address], [place] [phone] * (ABNORMAL) CBC W/DIFF AUTOMATED (10/12/2017 12:03 PM PRODUCT APPLICATIONS SCIENTIST) Pathologist [facility] WBC 5.2 4.8 - 10.8 x10'3/uL 10/12/2017 9:29 PM PRODUCT APPLICATIONS SCIENTIST [facility] RBC 4.75 4.70 - 6.10 x10'6/uL 10/12/2017 9:29 PM [facility] HGB 14.7 14.0 - 18.0 G/DL 10/12/2017 9:29 PM [facility] HCT 42.7(L) 43.0 - 54.0 % 10/12/2017 9:29 PM [facility] MCV 89.9 80.0 - 94.0 FL 10/12/2017 9:29 PM [facility] MCH 30.9 27.0 - 31.0 PG 10/12/2017 9:29 PM [facility] MCHC 34.4 32.0 - 36.0 G/DL 10/12/2017 9:29 PM [facility] RDW 12.0 11.5 - 14.5 % 10/12/2017 9:29 PM [facility] PLT 284 130 - 400 x10'3/uL 10/12/2017 9:29 PM [facility] MPV 11.2 9.3 - 12.2 FL 10/12/2017 9:29 PM [facility] NEUTROPHILS % 49.8 43.0 - 65.0 % 10/12/2017 9:29 PM [facility] LYMPHOCYTES % 41.7 20.0 - 46.0 % 10/12/2017 9:29 PM [facility] MONOCYTES % 7.1 5.0 - 12.0 % 10/12/2017 9:29 PM [facility] EOSINOPHILS 0.6(L) 1.0 - 3.0 % 10/12/2017 9:29 PM [facility] BASOPHILS 0.6 0.0 - 1.0 % 10/12/2017 9:29 PM [facility] IMMATURE GRANS % 0.2 0.0 - 1.0 % 10/12/2017 9:29 PM PRODUCT APPLICATIONS SCIENTIST [facility] 10/12/2017 12:0 3 PM PRODUCT APPLICATIONS SCIENTIST us Ellie Azevedo NP LABORATORY Final Result [facility] [address] [place] [address], [place] [phone] documented in this encounter Visit Diagnoses Diagnosis Generalized hyperhidrosis documented in this encounter
--- OUTSIDE RECORDS SUMMARY | 2024-10-03 23:53 | XMS_ITS | Encounter Summary ---
Author Organization [facility] Address [facility] [place] [address] Care Team Providers Care Education Specialist Name Role Phone Unavailable Primary Care Provider Unavailabl e Encounter Details Date Type Department Care Team (Latest Contact Info) Description 02/13/2021 8:18 AM CDT - 02/13/2021 11:59 PM CDT Hospital Encounter [facility] - Radiology [address] [place] [address] Kelli Jacobson PA-C [address] [place] [address] [address] [place] [address] Discharge Disposition: Home or Self Care Social History Tobacco Use Types Packs/Day Years Used Date Smoking Tobacco: Never Smokeless Tobacco: Never Alcohol Use Standard Drinks/Week Comments Yes 0 (1 standard drink = 0.6 oz pur e alcohol) occasional Sex and Gender Information Value Date Recorded Sex Assigned at Not on file Gender Identity Not on file Sexual Orientation Not on file documented as of this encounter Medications at Time of Discharge Medication Sig Dispensed Refills Start Date End Date meloxicam (MOBIC) 15 MG tabletIndications:Rotator cuff injury, right, initial encounter Take 1 (one) tablet by mouth once daily 30 tablet 2 02/13/2021 documented as of this encounter Plan of Treatment Not on file documented as of this encounter Procedures Procedure Name Priority Date/Time Associated Diagnosis Comments XR SHOULDER RIGHT 2VW OR MORE Routine 02/13/2021 8:28 AM CDT Right shoulder pain, unspecified chronicity documented in this encounter Results * XR SHOULDER RIGHT 2VW OR MORE (02/13/2021 8:28 AM CDT) Anatomical Region Laterality Modality Upper Extremity Radiographic Landy ging 02/13/2021 12:1 0 PM CDT Narrative 02/13/2021 12:11 PM CDT Right Shoulder 3 Views INDICATION: Right shoulder pain FINDINGS: ??No acute fracture or dislocation. Joint spaces are relatively maintained. Visualized right lung is clear. *Reading Radiologist: Evie Germain on 02/13/2021 at 12:11 PM Procedure Note Evie Germain MD - 02/13/2021 Right Shoulder 3 Views INDICATION: Right shoulder pain FINDINGS: No acute fracture or dislocation. Joint spaces are relatively maintained. Visualized right lung is clear. *Reading Radiologist: Evie Germain on 02/13/2021 at 12:11 PM Kelli Jacobson PA-C DIAGNOSTIC IMAGING O RDERABLES documented in this encounter Visit Diagnoses Diagnosis Right shoulder pain, unspecified chronicity documented in this encounter
--- OUTSIDE RECORDS SUMMARY | 2024-10-03 23:53 | XMS_ITS | Clinical Summary ---
Author Organization [facility] Address [address] [place] [address]. [place], [place] [address] [place] [address] Care Team Providers Care Rrts Name Role Phone Kenna Wilson NP Primary Care Provider [phone] Allergies No known active allergies Medications Multiple Vitamin (MULTIVITAMIN ADULT OR) Active Active Problems No known active problems Immunizations Name Administration Dates Next Due Influenza Adult (Generic) 07/17/2022,06/12/2021, 08/03/2020 Tdap (Adacel) 10/13/2022 Family History Medical History Relation Comments Cerebral palsy Brother Retardation/Learning Difficulties Brother Thyroid Father Parkinson's Disease Maternal Grandfather Glaucoma Mother Relation Status Comments Brother Alive Father Alive Maternal Grandfather Maternal Grandmother Alive Mother Alive Paternal Grandfather Paternal Grandmother Sister 1 Alive Sister 2 Alive Social History Tobacco Use Types Packs/Day Years Used Date Smoking Tobacco: Former Cigarettes 2 5 2 000 - 2005 Cigars Smokeless Tobacco: Never Tobacco Cessation:Counseling Given: No Alcohol Use Standard Drinks/Week Comments Yes 0 (1 standard drink = 0.6 oz pur e alcohol) socially PHQ-2 Answer Date Recorded Patient Health Questionnaire-2 Score 0 10/13/2022 Sex and Gender Information Value Date Recorded Sex Assigned at Not on file Legal Sex Male 8:16 PM CDT Gender Identity Not on file Sexual Orientation Not on file Last Filed Vital Signs Vital Sign Reading Time Taken Comments Blood Pressure 117/77 10/13/2022 8:52 AM WOOL SACKER Pulse 55 10/13/2022 8:52 AM WOOL SACKER Temperature 36.6 ??C (97.9 ??F) 10/13/2022 8:52 AM CS T Respiratory Rate 18 10/13/2022 8:52 AM WOOL SACKER Oxygen Saturation 98% 10/13/2022 8:52 AM WOOL SACKER Inhaled Oxygen Concentration - - Weight 83.9 kg (185 lb) 10/13/2022 8:52 AM WOOL SACKER Height 182.9 cm (6') 10/13/2022 8:52 AM WOOL SACKER Body Mass Index 25.09 10/13/2022 8:52 AM WOOL SACKER Plan of Treatment Health Maintenance Due Date Last Done Comments Colorectal Cancer Screening Colonoscopy (10 Years) 1978 Hepatitis C 1996 Hepatitis B Vaccines (1 of 3 - 19+ 3-dose series) 1997 Annual Physical 10/13/2023 10/13/2022 COVID-19 Vaccine ( season) 2024 07/17/2022, 09/10/2021, 11/06/2020, Additional history exists Influenza Adult (#1) 2024 07/17/2022, 06/12/2021, 08/03/2020 DTaP, Tdap and Td Vaccines (2 - Td or Tdap) 10/13/2032 10/13/2022 HPV Vaccines Aged Out No longer eligi ble based on patient's age to complete this topic Meningococcal Vaccine Aged Out No ligia edwardo eligible based on patient's age to complete this topic Pneumococcal Vaccine: Pediatrics (0 to 5 Years) and At-Risk Patients (6 to 64 Years) Aged Out No longer eligible based on patient's age to complete this topic RSV Immunizations Under 20 Months Aged Out No longer eligible based on patient's age to complete this topic Insurance [facility] [[email or web address]] Care Teams Rrts Relationship Specialty Start Date End Date Kenna Wilson NP [address] [place], [place] [phone] PCP - General Nurse Practitioner Family 10/13/22
--- OUTSIDE RECORDS SUMMARY | 2024-10-03 23:53 | XMS_ITS | Encounter Summary ---
Author Organization [facility] Address [address] [place] [address]. [place] [address] [place] [address] Care Team Providers Care Financial Service Representative Name Role Phone Unavailable Primary Care Provider Unavailabl e Encounter Details Date Type Department Care Team (Late st Contact Info) Description 12/10/2016 Abstract [facility] Medical Group Family Medicine [facility] [address] [place] [address] Ellie Azevedo NP [address] [place] [address] Social History Tobacco Use Types Packs/Day Years Used Date Smoking Tobacco: Never Assessed Sex and Gender Information Value Date Recorded Sex Assigned at Not on file Legal Sex Male 8:16 PM CDT Gender Identity Not on file Sexual Orientation Not on file documented as of this encounter Last Filed Vital Signs Vital Sign Reading Time Taken Comments Blood Pressure 122/72 12/10/2016 7:16 AM CDT Pulse 66 12/10/2016 7:16 AM CDT Temperature - - Respiratory Rate - - Oxygen Saturation - - Inhaled Oxygen Concentration - - Weight 82.6 kg (182 lb) 12/10/2016 7:16 AM CDT Height - - Body Mass Index 25.38 09/09/2016 7:50 AM GUEST SERVICE AIDE documented in this encounter Progress Notes * Ellie Azevedo NP - 12/10/2016 7:15 AM CDT Reason For Visit Reason For Visit: Acute Visit Chief Complaint 1. Dizziness 2. Ear Pain 3. Sore Throat Patient is being seen today for left ear pain on and off for 3 weeks as well as a sore throat and drainage since yesterday. History of Present Illness 35 yo M here with c/o intermittent left ear pain and a sore throat with congestion that started yesterday. Improving no F/C, no night sweats no shortness of breath, no cough OTC medication does help Review of Systems See HPI for pertinent positives. Constitutional: Normal, no fever and no chills. Cardiovascular: Normal, no chest pain and no palpitations. Respiratory: Normal, no shortness of breath, no cough and no wheezing. Gastrointestinal: Normal. Genitourinary: Normal. Active Problems 1. Acute bronchitis (466.0) (J20.9) 2. Acute upper respiratory infection (465.9) (J06.9) 3. Diabetes mellitus screening (V77.1) (Z13.1) 4. Encounter to establish care (V65.8) (Z76.89) 5. GERD (gastroesophageal reflux disease) (530.81) (K21.9) 6. Influenza (487.1) (J11.1) 7. Lipid screening (V77.91) (Z13.220) 8. Memory change (780.93) (R41.3) 9. Pain in joint of left shoulder (719.41) (M25.512) 10. Seasonal allergies (477.9) (J30.2) 11. 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 Surgical History 1. History of Surgery Vas Deferens Vasectomy Family History Mother 1. No pertinent family history Paternal Grandfather 2. Family history of Carcinoma Of The Lung (V16.1) Social History ?? Exercise: Walking ?? Former smoker (V15.82) (Z87.891) ?? Marital History - Currently ? No illicit drug use ?? Occasional alcohol use ?? 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 No Reported Medications Recorded PARIS = N; ; Last Updated By: Rossy Donovan; 12/10/2016 7:42:19 AM Allergies 1. No Known Drug Allergies Recorded By: Yris Martin; 10/15/2012 9:29:22 AM Vitals Recorded: 10Dec2016 07:16AM Temperature 97.9 F Heart Rate 66 Respiration 16 Systolic 122, RUE, Sitting Diastolic 72, RUE, Sitting O2 Saturation 97 Weight 182 lb BMI Calculated 25.38 BSA Calculated 2.03 Physical Exam Constitutional General appearance: No acute distress, well appearing and well nourished. Ears, Nose, Mouth, and Throat External inspection of ears and nose: Normal. Otoscopic examination: Abnormal. The right tympanic membrane was not red, was not bulging and was not retracted. The left tympanic membrane was not red, was not bulging and was not retracted. Exam ofthe right middle ear showed a middle ear [...] rhythm, normal S1 and S2, without murmurs. Lymphatic Palpation of lymph nodes in neck: No lymphadenopathy. Psychiatric Mood and affect: Normal. Assessment 1. Middle ear effusion (381.4) (H65.90) Plan Middle ear effusion 1. PredniSONE 20 MG Oral Tablet; TAKE 1 TABLET TWICE DAILY Rx By: Ellie Azevedo; Dispense: 5 Days ; #:10 Tablet; Refill: 0; For: Middle ear effusion; PARIS = N; Verified Transmission to [facility] [address]; Last Updated By: [employer]; 12/10/2016 7:42:37 AM Discussion/Summary Middle ear effusion no F/C, no night sweats no s/s of infection prednisone ordered cont OTC Tx f/u if F/C, night sweats, shortness of breath Signatures Electronically signed by : Ellie Azevedo NP; Dec 12 2016 5:55PM GUEST SERVICE AIDE (Author) documented in this encounter Plan of Treatment Not on file documented as of this encounter Visit Diagnoses Not on filedocumented in this encounter
--- OUTSIDE RECORDS SUMMARY | 2024-10-03 23:53 | XMS_ITS | Encounter Summary ---
Author Organization [facility] Address [address] [place] [address]. [place], [place] [address] [place] [address] Care Team Providers Care Ordering Machine Operator Name Role Phone Unavailable Primary Care Provider Unavailabl e Encounter Details Date Type Department Care Team (Late st Contact Info) Description 10/10/2015 Abstract [facility] Medical Group Family Medicine - [place] [address], [address] [place] [address] Laura Bailey DO [address] [place] [address] Social History Tobacco Use Types Packs/Day Years Used Date Smoking Tobacco: Never Assessed Sex and Gender Information Value Date Recorded Sex Assigned at Not on file Legal Sex Male 8:16 PM CDT Gender Identity Not on file Sexual Orientation Not on file documented as of this encounter Last Filed Vital Signs Vital Sign Reading Time Taken Comments Blood Pressure 120/78 10/10/2015 10:48 AM DIRECTOR ENERGY Pulse 108 10/10/2015 10:48 AM DIRECTOR ENERGY Temperature - - Respiratory Rate - - Oxygen Saturation - - Inhaled Oxygen Concentration - - Weight 84.4 kg (186 lb) 10/10/2015 10:48 AM DIRECTOR ENERGY Height - - Body Mass Index 25.23 04/19/2014 7:49 AM CDT documented in this encounter Progress Notes * Laura Bailey DO - 10/10/2015 10:45 AM CST Reason For Visit Reason For Visit: Acute Visit Chief Complaint Pt c/o cough, fever and chills History of Present Illness HPI Free Text: Patient is a 34-year-old male here for concerns about fever. He says it started Thursday night, all of a sudden got up to 103 at home. He has been taking ibuprofen and Tylenol in trying to get the fever down but in the office today it is still 101 after taking Tylenol. He says he feelsreally worn down. He does have a bit of runny nose and some congestion but no sinus tenderness, no d iarrhea, no nauseousness, no vomiting. The cough is mostly kind of a deep wet cough but nonproductive and no specific known sick contact. Influenza, Adult (Brief): The patient is being seen for an initial evaluation of influenza. Symptoms: myalgias, rhinorrhea and cough, but no weakness, no headache, no nasal congestion and no shortness of breath The patient presents with complaints of sudden onset of constant episodes of fever, described as > 103 f. Episodes started October 08, 2015. Symptoms are unchanged. Associated symptoms: no wheezing, no chest pain, no neck stiffness, no photophobia, no dizziness, no dry mouth, no decreased urination, no nausea, no vomiting and no diarrhea. Review of Systems Constitutional: fever, feeling poorly, chills, feeling tired and headache. ENT: nasal discharge, but no sore throat. Cardiovascular: no chest pain and no palpitations. Respiratory: cough. Gastrointestinal: no constipation and no diarrhea. Active Problems 1. Acute bronchitis (466.0) (J20.9) 2. Acute upper respiratory infection (465.9) (J06.9) 3. Diabetes mellitus screening (V77.1) (Z13.1) 4. GERD (gastroesophageal reflux disease) (530.81) (K21.9) 5. Lipid screening (V77.91) (Z13.220) 6. Memory change (780.93) (R41.3) 7. Pain in joint of left shoulder (719.41) (M25.512) 8. 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 Surgical History 1. History of Surgery Vas Deferens Vasectomy Family History Paternal Grandfather 1. Family history of Carcinoma Of The Lung (V16.1) Social History ?? Former smoker (V15.82) (Z87.891) ?? Marital History - Currently Allergies 1. No Known Drug Allergies Recorded By: Yris Martin; 10/15/2012 9:29:22 AM Vitals Recorded: 10Oct2015 10:48AM Temperature 101.1 F Heart Rate 108 Respiration 16 Systolic 120 Diastolic 78 O2 Saturation 97 Weight 186 lb BMI Calculated 25.23 BSA Calculated 2.07 Physical Exam Constitutional General appearance: No acute distress, well appearing and well nourished. Head and Face Palpation of the face and sinuses: No sinus tenderness. Ears, Nose, Mouth, and Throat External inspection of ears and nose: Normal. Otoscopic examination: Tympanic membranes translucent with normal light reflex. Canals patent without erythema. Nasal mucosa, septum, and turbinates: Abnormal. Boggy with mild erythema on the left side but cleardischarge. Oropharynx: Normal with no erythema, edema, exudate or lesions. Pulmonary Respiratory effort: No increased work of breathing or signs of respiratory distress. Auscultation of lungs: Clear to auscultation. Cardiovascular Auscultation of heart: Normal rate and rhythm, normal S1 and S2, no murmurs. Examination of extremities for edema and/or varicosities: Normal. Abdomen Abdomen: Non-tender, no masses. Liver and spleen: No hepatomegaly or splenomegaly. Psychiatric Mood and affect: Normal. Assessment 1. Influenza (487.1) (J11.1) Plan Influenza 1. Hydrocod Polst-CPM Polst ER 10-8 MG/5ML Oral Liquid Extended Release (Tussionex Pennkinetic ER); TAKE 5 ML Twice daily PRN Rx By: Laura Bailey; Dispense: 12 Days ; #:120 ML; Refill: 0; For: Influenza; PARIS = N; Print Rx 2. PredniSONE 20 MG Oral Tablet; take 2 tablets day 1 and 2 then 1 tablet for 5 more days Rx By: Laura Bailey; Dispense: 0 Days ; #:9 Tablet; Refill: 0; For: Influenza; PARIS = N; Verified Transmission to [id number]; Last Updated By: Kelin Castellano; 10/10/2015 11:03:01 AM 3. Tamiflu 75 MG Oral Capsule; TAKE 1 CAPSULE TWICE DAILY Rx By: Laura Bailey; Dispense: 5 Days ; #:10 Capsule; Refill: 0; For: Influenza; PARIS = N; Verified Transmission to [id number]; Last Updated By: Kelin Castellano; 10/10/2015 11:03:01 AM Discussed with patient with the high fevers and the rapid onset I really suspect that he has influenza. We talked about the options of swabbing but even if the swab was negative with this high feversI am likely still going to treat him empirically. Patient is in agreement that we will go ahead andstart with Tamiflu. We will also give him a steroid burst and then because of the cough that he hashad, his lungs are clear, I see no indication for a chest x-ray but we will go ahead and get him some hydrocodone cough syrup so he can get some rest at night. I encouraged him in the future to get his flu vaccine each year and if his symptoms are not improving, he will call for follow up. Signatures Electronically signed by : Laura Bailey D.O.; Oct 11 2015 7:56AM DIRECTOR ENERGY (Author) documented in this encounter Plan of Treatment Not on file documented as of this encounter Visit Diagnoses Not on filedocumented in this encounter
--- OUTSIDE RECORDS SUMMARY | 2024-10-03 23:53 | XMS_ITS | Encounter Summary ---
Author Organization [facility] Address [address] [place] [address] [place] [address] Care Team Providers Care Executive Vice President Of Sales Name Role Phone Unavailable Primary Care Provider Unavailabl e Encounter Details Date Type Department Care Team (Latest Contact Info) Description 08/03/2020 Travel Social History Tobacco Use Types Packs/Day Years Used Date Smoking Tobacco: Never Assessed Sex and Gender Information Value Date Recorded Sex Assigned at Not on file Gender Identity Not on file Sexual Orientation Not on file COVID-19 Exposure Response Date Recorded In the last month, have you been in contact with someone who was confirmed or suspected to have Coronavirus / COVID-19? No / Unsure 08/03/2020 4:24 PM ABA TUTOR documented as of this encounter Plan of Treatment Not on file documented as of this encounter Visit Diagnoses Not on filedocumented in this encounter
--- OUTSIDE RECORDS SUMMARY | 2024-10-03 23:53 | XMS_ITS | Encounter Summary ---
Author Organization [facility] Address [address] [place] [address]. [place] [address] [place] [address] Care Team Providers Care Fire Fighter Name Role Phone Unavailable Primary Care Provider Unavailabl e Encounter Details Date Type Department Care Team (Late st Contact Info) Description 09/09/2016 Abstract [facility] [place] [address] Ellie Azevedo NP [address] [place], [place] [id number] Social History Tobacco Use Types Packs/Day Years [...] Comments TSH W/REFLEX Routine 09/09/2016 8:07 AM HIGH PRESSURE BOILER OPERATOR COMPREHENSIVE METABOLIC PANEL Routine 09/09/2016 8:07 AM HIGH PRESSURE BOILER OPERATOR LIPID PANEL Routine 09/09/2016 8:07 AM HIGH PRESSURE BOILER OPERATOR CBC W/DIFF AUTOMATED Routine 09/09/2016 8:07 AM HIGH PRESSURE BOILER OPERATOR documented in this encounter Results * TSH W/REFLEX (SNS) (09/09/2016 8:07 AM HIGH PRESSURE BOILER OPERATOR) TSH 1.93 0.27 - 4.20 mIU/mL 09/09/2016 9:25 PM [facility] Comment:FREE T4 NOT INDICATE D SERUM OR PLASMA SPECIMEN / Unknown 09/09/2016 8:07 AM HIGH PRESSURE BOILER OPERATOR 09/09/2016 8:46 PM HIGH PRESSURE BOILER OPERATOR us Generic Conversion Md [facility] Final R esult [facility] [address] [place] [address], * (ABNORMAL) LIPID PANEL (09/09/2016 8:07 AM HIGH PRESSURE BOILER OPERATOR) CHOLESTEROL 148 <200 MG/DL 09/09/2016 9:25 PM [facility] Comment: NOTE: Acetaminophen, N Acetyl p benzoquinone imine (NAPQI), N acetylcysteine (NAC), Metamizole, 4 Aminoantipyrine (4 AAP) and 4 Methylamino antipyrine (4 MAP) at high concentrations can cause falsely low results on Lactate, Uric Acid, Cholesterol, Triglyceride, HDL, and Direct LDL. TRIGLYCERIDES 100 <150 MG/DL 09/09/2016 9:25 PM [facility] HDL 52(L) >59 MG/DL 09/09/2016 9:25 PM [facility] LDL (CALCULATED) 76 <100 MG/DL 09/09/2016 9:25 PM [facility] NON HDL CHOLESTEROL 96 <130 MG/DL 09/09/2016 9:25 PM [facility] Comment: NOTE: WHEN THE TRIGLYCERIDES ARE >200 mg/dL, NON HDL C IS A SECONDARY TARGET OF THERAPY, WITH A GOAL 30 mg/dL HIGHER THAN THE IDENTIFIED LDL C GOAL. CHOL/HDL RATIO 2.8 0.0 - 4.5 09/09/2016 9:25 PM [facility] VLDL CALCULATION 20 5 - 55 MG/DL 09/09/2016 9:25 PM [facility] LIPID INTERPRETATION 08/22 9:25 PM HIGH PRESSURE BOILER OPERATOR [facility] Comment: NIH CONCENSUS REPORT RECOMMENDATIONS: ?ADULT ?CHILD ??LOW RISK: ?CHOLESTEROL ? <200 ? <170 ?TRIGLYCERIDE ?<150 ?--- ?HDL ? >=60 ?--- ?LDL ? <100 ? <110 ??BORDERLINE: ?CHOLESTEROL ? 200-239 ?? 170-199 ?TRIGLYCERIDE ?150-199 ? --- ?HDL ?40-59 ?--- ?LDL ? 100-159 ?? 110-129 ??HIGH RISK: ?CHOLESTEROL ? >=240 ?>=200 ?TRIGLYCERIDE ?>=200 ? --- ?HDL ?<40 ?--- ?LDL ? >=160 ?>=130 09/09/2016 8:07 AM HIGH PRESSURE BOILER OPERATOR 09/09/2016 8:46 PM HIGH PRESSURE BOILER OPERATOR us Generic Conversion [facility] Final R esult [facility] [address] [place] [address], * (ABNORMAL) COMPREHENSIVE METABOLIC PANEL (09/09/2016 8:07 AM HIGH PRESSURE BOILER OPERATOR) GLUCOSE 95 70 - 99 mg/dL 09/09/2016 9:25 PM HIGH PRESSURE BOILER OPERATOR [facility] BUN 9 8 - 23 mg/dL 09/09/2016 9:25 PM [facility] CREATININE S/P/B 0.69(L) 0.70 - 1.20 mg/dL 09/09/2016 9:25 PM [facility] SODIUM S/P/B 142 136 - 145 mmol/L 09/09/2016 9:25 PM [facility] POTASSIUM S/P/B 4.4 3.5 - 5.1 mmol/L 09/09/2016 9:25 PM [facility] CHLORIDE S/P/B 102 98 - 107 mmol/L 09/09/2016 9:25 PM [facility] CO2 29 22 - 29 mmol/L 09/09/2016 9:25 PM [facility] BILIRUBIN TOTAL S/P/B 0.3 0.2 - 1.2 mg/dL 09/09/2016 9:25 PM [facility] CALCIUM S/P/B 9.6 8.6 - 10.2 mg/dL 09/09/2016 9:25 PM [facility] ALKALINE PHOSPHATASE S/P/B 67 40 - 129 U/L 09/09/2016 9:25 PM [facility] AST 21 0 - 40 U/L 09/09/2016 9:25 PM [facility] TOTAL PROTEIN S/P/B 7.4 6.4 - 8.3 g/dL 09/09/2016 9:25 PM [facility] ALBUMIN S/P/B 4.9 3.5 - 5.2 g/dL 09/09/2016 9:25 PM [facility] ALT 21 0 - 41 U/L 09/09/2016 9:25 PM [facility] GLOBULIN 2.5 2.3 - 3.6 g/dL 09/09/2016 9:25 PM [facility] A/G RATIO 2.0 1.0 - 2.0 09/09/2016 9:25 PM [facility] ANION GAP 15 8 - 20 09/09/2016 9:25 PM [facility] EGFR NON-AFR. AMER. >60 >60 mL/min/1.7 3m'2 09/09/2016 9:25 PM [facility] EGFR AFR. AMER. >60 >60 mL/min/1.7 3m'2 09/09/2016 9:25 PM [facility] Comment: NOTE: eGFR is not calculated for patients <18 years of age. This is an estimated GFR (CKD EPI) and should not be used for calculating drug doses. 09/09/2016 8:07 AM HIGH PRESSURE BOILER OPERATOR 09/09/2016 8:46 PM HIGH PRESSURE BOILER OPERATOR us Generic Conversion Md [facility] Final R esult [facility] [address] [place] [id number], * CBC W/DIFF AUTOMATED (09/09/2016 8:07 AM HIGH PRESSURE BOILER OPERATOR) WBC 5.6 4.8 - 10.8 x10'3/uL 09/09/2016 8:57 PM HIGH PRESSURE BOILER OPERATOR [facility] RBC 4.87 4.70 - 6.10 x10'6/uL 09/09/2016 8:57 PM [facility] HGB 14.8 14.0 - 18.0 G/DL 09/09/2016 8:57 PM [facility] HCT 43.9 43.0 - 54.0 % 09/09/2016 8:57 PM [facility] MCV 90.1 80.0 - 94.0 FL 09/09/2016 8:57 PM [facility] MCH 30.4 27.0 - 31.0 PG 09/09/2016 8:57 PM [facility] MCHC 33.7 32.0 - 36.0 G/DL 09/09/2016 8:57 PM [facility] RDW 12.0 11.5 - 14.5 % 09/09/2016 8:57 PM [facility] PLT 275 130 - 400 x10'3/uL 09/09/2016 8:57 PM [facility] MPV 10.6 9.3 - 12.2 FL 09/09/2016 8:57 PM [facility] IMMATURE GRANS % 0.2 0.0 - 1.0 % 09/09/2016 8:57 PM [facility] NEUTROPHILS % 54.9 43.0 - 65.0 % 09/09/2016 8:57 PM [facility] LYMPHOCYTES % 35.4 20.0 - 46.0 % 09/09/2016 8:57 PM [facility] MONOCYTES % 6.8 5.0 - 12.0 % 09/09/2016 8:57 PM [facility] EOSINOPHILS 2.0 1.0 - 3.0 % 09/09/2016 8:57 PM [facility] BASOPHILS 0.7 0.0 - 1.0 % 09/09/2016 8:57 PM HIGH PRESSURE BOILER OPERATOR [facility] WHOLE BLOOD SPECIMEN / Unknown 09/09/2016 8:07 AM HIGH PRESSURE BOILER OPERATOR 09/09/2016 8:46 PM HIGH PRESSURE BOILER OPERATOR us Generic Conversion Md [facility] Final R esult [facility] [address] [place] [address], documented in this encounter Visit Diagnoses Diagnosis Persons encountering health services in other specified circumstances documented in this encounter
--- OUTSIDE RECORDS SUMMARY | 2024-10-03 23:53 | XMS_ITS | Encounter Summary ---
Author Organization [facility] Address [address] [place] [address]. [place], [place] [address] [place] [address] Care Team Providers Care Continuous Loft Operator Name Role Phone Unavailable Primary Care Provider Unavailabl e Encounter Details Date Type Department Care Team (Latest Contact Info) Description 10/15/2017 Abstract [facility] Social History Tobacco Use Types Packs/Day Years Used Date Smoking Tobacco: Never Assessed Sex and Gender Information Value Date Recorded Sex Assigned at Not on file Legal Sex Male 8:16 PM CDT Gender Identity Not on file Sexual Orientation Not on file documented as of this encounter Progress Notes * Ellie Azevedo NP - 10/15/2017 9:18 AM CST Verified Results CBC W Differential 12Oct2017 12:03PM Ellie Azevedo Test Name Result Flag Reference WBC 5.2 x10'3/uL 4.8-10.8 RBC 4.75 x10'6/uL 4.70-6.10 Hemoglobin (HGB) 14.7 G/DL 14.0-18.0 Hematocrit (HCT) 42.7 % L 43.0-54.0 Mean Corpuscular Volume (MCV) 89.9 FL 80.0-94.0 Mean Corpuscular Hgb (MCH) 30.9 PG 27.0-31.0 Mean Corpuscular Hgb Conc (MCH 34.4 G/DL 32.0-36.0 RDW 12.0 % 11.5-14.5 PLATELET COUNT 284 x10'3/uL 130-400 Mean Platelet Volume (MPV) 11.2 FL 9.3-12.2 IMMATURE GRANULOCYTES 0.2 % 0.0-1.0 NEUTROPHILS 49.8 % 43.0-65.0 LYMPHOCYTES 41.7 % 20.0-46.0 MONOCYTES 7.1 % 5.0-12.0 EOSINOPHILS 0.6 % L 1.0-3.0 BASOPHILS 0.6 % 0.0-1.0 TSH W Reflex Free T4 12Oct2017 12:03PM Roberto Carlos, Ellie Test Name Result Flag Reference TSH w Reflex Free T4 2.460 uIU/ML 0.358-3.74 HIGH DOSES OF BIOTIN MAY INTERFERE WITH THIS TEST RESULT. CORRELATION TO CLINICAL HISTORY AND PRESENTATION RECOMMENDED. FREE T4 NOT INDICATED Prostate Specif Ag ( PSA ) 12Oct2017 12:03PM Roberto Carlos, Ellie Test Name Result Flag Reference Prostate Specific Antigen 0.68 NG/ML <4.00 Test was performed using the Siemens method. Results obtained with other assay methods or kits cannot be used interchangeably with results obtained by the Siemens method. HIV AB AND ANTIGEN 12Oct2017 12:03PM Roberto Carlos, Ellie Test Name Result Flag Reference HIV AG/AB, 4TH GEN NON-REACTIVE NR Direct Bilirubin 12Oct2017 12:03PM Roberto Carlos, Ellie Test Name Result Flag Reference Direct Bilirubin 0.1 MG/DL 0.0-0.20 Discussion/Summary There are no red flags on labs Please schedule an apt with Dr. Parnell if Sx are not resolved thank you AQUILINO Au documented in this encounter Plan of Treatment Not on file documented as of this encounter Visit Diagnoses Not on filedocumented in this encounter
--- OUTSIDE RECORDS SUMMARY | 2024-10-03 23:53 | XMS_ITS | Encounter Summary ---
Author Organization [facility] Address [address] [place] [address]. [place], [place] [id number] [place] [address] Care Team Providers Care Gum Rolling Machine Tender Name Role Phone Unavailable Primary Care Provider Unavailabl e Encounter Details Date Type Department Care Team (Latest Contact Info) Description 09/10/2016 Abstract [facility] Medical [facility] Social History Tobacco Use Types Packs/Day Years Used Date Smoking Tobacco: Never Assessed Sex and Gender Information Value Date Recorded Sex Assigned at Not on file Legal Sex Male 8:16 PM CDT Gender Identity Not on file Sexual Orientation Not on file documented as of this encounter Progress Notes * Ellie Azevedo NP - 09/10/2016 7:41 AM CST Verified Results CBC W Differential [id number] 08:07AM Ellie Azevedo Test Name Result Flag Reference WBC 5.6 x10'3/uL 4.8-10.8 RBC 4.87 x10'6/uL 4.70-6.10 Hemoglobin (HGB) 14.8 G/DL 14.0-18.0 Hematocrit (HCT) 43.9 % 43.0-54.0 Mean Corpuscular Volume (MCV) 90.1 FL 80.0-94.0 Mean Corpuscular Hgb (MCH) 30.4 PG 27.0-31.0 Mean Corpuscular Hgb Conc (MCH 33.7 G/DL 32.0-36.0 RDW 12.0 % 11.5-14.5 PLATELET COUNT 275 x10'3/uL 130-400 Mean Platelet Volume (MPV) 10.6 FL 9.3-12.2 IMMATURE GRANULOCYTES 0.2 % 0.0-1.0 NEUTROPHILS 54.9 % 43.0-65.0 Lymphocytes % (Auto) 35.4 % 20.0-46.0 MONOCYTES 6.8 % 5.0-12.0 Eosinophils % (Auto) 2.0 % 1.0-3.0 Basophils % (Auto) 0.7 % 0.0-1.0 Lipid Profile 09Sep2016 08:07AM Ellie Azevedo Test Name Result Flag Reference CHOLESTEROL 148 MG/DL <200 NOTE: Acetaminophen, N Acetyl p benzoquinone imine (NAPQI), N acetylcysteine (NAC), Metamizole, 4 Aminoantipyrine (4 AAP) and 4 Methylamino antipyrine (4 MAP) at high concentrations can cause falsely low results on Lactate, Uric Acid, Cholesterol, Triglyceride, HDL, and Direct LDL. TRIGLYCERIDE 100 MG/DL <150 HDL CHOLESTEROL 52 MG/DL L >59 LDL CALCULATED 76 MG/DL <100 Non HDL, Calc 96 MG/DL <130 NOTE: WHEN THE TRIGLYCERIDES ARE >200 mg/dL, NON HDL C IS A SECONDARY TARGET OF THERAPY, WITH A GOAL 30 mg/dL HIGHER THAN THE IDENTIFIED LDL C GOAL. CHOL/HDL RATIO 2.8 0.0-4.5 VLDL Cholesterol 20 MG/DL 5-55 Lipid Profile Comment 1 (Report) NIH CONCENSUS REPORT RECOMMENDATIONS: ADULT CHILD LOW RISK: CHOLESTEROL <200 <170 TRIGLYCERIDE <150 --- HDL >=60 --- LDL <100 <110 BORDERLINE: CHOLESTEROL 200-239 170-199 TRIGLYCERIDE 150-199 --- HDL 40-59 --- LDL 100-159 110-129 HIGH RISK: CHOLESTEROL >=240 >=200 TRIGLYCERIDE >=200 --- HDL <40 --- LDL >=160 >=130 TSH W Reflex Free T4 09Sep2016 08:07AM Ellie Azevedo Test Name Result Flag Reference TSH w Reflex Free T4 1.93 mIU/mL 0.27-4.20 FREE T4 NOT INDICATED Compr Metabolic Prof ( CMP ) 09Sep2016 08:07AM Ellie Azevedo Test Name Result Flag Reference Glucose 95 mg/dL 70-99 Blood Urea Nitrogen (BUN) 9 mg/dL 8-23 Creatinine 0.69 mg/dL L 0.70-1.20 Sodium (Na) 142 mmol/L 136-145 Potassium (K) 4.4 mmol/L 3.5-5.1 Chloride (Cl) 102 mmol/L 98-107 Carbon Dioxide (CO2) 29 mmol/L 22-29 Total Bilirubin 0.3 mg/dL 0.2-1.2 Calcium 9.6 mg/dL 8.6-10.2 Alkaline Phosphatase (ALKP) 67 U/L 40-129 AST/GOT 21 U/L 0-40 Total Protein 7.4 g/dL 6.4-8.3 Albumin 4.9 g/dL 3.5-5.2 ALT/GPT 21 U/L 0-41 Globulin, Calc 2.5 g/dL 2.3-3.6 A:G Ratio 2.0 1.0-2.0 Anion Gap 15 8-20 Glomerular Filt Rate Calc >60 mL/min/1.73m'2 >60 Glomerular Filt Rate (AA) Calc >60 >60 NOTE: eGFR is not calculated for patients <18 years of age. This is an estimated GFR (CKD EPI) and should not be used for calculating drug doses. mL/min/1.73m'2 Discussion/Summary Krystletamar Mr. Felipe, Overall your labs look great! You are not anemic according to these labs. No need for further labs at this time. Happy Holidays! AQUILINO Au documented in this encounter Plan of Treatment Not on file documented as of this encounter Visit Diagnoses Not on filedocumented in this encounter
--- OUTSIDE RECORDS SUMMARY | 2024-10-03 23:53 | XMS_ITS | Encounter Summary ---
Author Organization [facility] Address [address] [place] [address]. [place], [place] [id number] [place] [address] Care Team Providers Care Unmanned Aircraft Systems Roboticist Name Role Phone Unavailable Primary Care Provider Unavailabl e Encounter Details Date Type Department Care Team (Late st Contact Info) Description 11/01/2014 Abstract [facility] Family Medicine - [place] [address], [address] [place] [address] Laura Bailey DO [address] [place] [address] Social History Tobacco Use Types Packs/Day Years Used Date Smoking Tobacco: Never Assessed Sex and Gender Information Value Date Recorded Sex Assigned at Not on file Legal Sex Male 8:16 PM CDT Gender Identity Not on file Sexual Orientation Not on file documented as of this encounter Last Filed Vital Signs Vital Sign Reading Time Taken Comments Blood Pressure - - Pulse 72 11/01/2014 10:01 AM BULK TANK CAR UNLOADER Temperature - - Respiratory Rate - - Oxygen Saturation - - Inhaled Oxygen Concentration - - Weight 82.1 kg (181 lb) 11/01/2014 10:01 AM BULK TANK CAR UNLOADER Height - - Body Mass Index 24.55 04/19/2014 7:49 AM CDT documented in this encounter Progress Notes * Laura Bailey DO - 11/01/2014 10:15 AM CST Reason For Visit Reason For Visit: Acute Visit Chief Complaint C/O PAIN IN LEFT SHOULDER EVERY TIME HE EATS, ALSO WAKES UP TASTING [place] SS History of Present Illness Patient is a 33-year-old male here today for an unusual combination of symptoms. He reports he started having some problems with reflux, burping and belching and a foul taste to his mouth and then for the last 3 to 4 days when he eats he gets stabbing pains in his left shoulder. It only happens when he eats. He noticed the reflux symptoms starting first but then when he started having symptoms in his shoulder it did make him more concerned. He has not noticed any specific injury. It sort of waking him up at night but the heartburn and epigastric pains have been there as well. He had problems several years ago with some reflux, so he tried started taking some Zantac 150 mg twice a day and itis really not making much of an improvement. He is not having any nausea, vomiting or diarrhea but does have the regurg and then the associated symptoms in his left shoulder. No cough, no wheezing, no weight loss, no diaphoresis, no dyspnea on exertion. The patient is being seen for an initial evaluation of gastroesophageal reflux disease. Symptoms: heartburn and acid regurgitation, but no nausea, no vomiting, no sore throat, no dysphagia, no odynophagia, no hematemesis and no melena The patient presents with complaints of gradual onset of constant episodes of moderate epigastric pain. Episodes started 1 week ago. Symptoms are unchanged. Associated symptoms: no hoarseness, no cough and no wheezing. Review of Systems Constitutional: not feeling poorly and not feeling tired. ENT: no nasal discharge. Cardiovascular: no chest pain and no palpitations. Respiratory: no cough. Gastrointestinal: heartburn, but no constipation and no diarrhea. Musculoskeletal: arthralgias. Active Problems 1. Acute bronchitis (466.0) (J20.9) 2. Acute upper respiratory infection (465.9) (J06.9) 3. Diabetes mellitus screening (V77.1) (Z13.1) 4. Lipid screening (V77.91) (Z13.220) 5. Memory change (780.93) (R41.3) 6. 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 Surgical History 1. History of Surgery Of Male Genitalia Vasectomy Family History Paternal Grandfather 1. Family history of Carcinoma Of The Lung (V16.1) Social History ?? Former smoker (V15.82) (Z87.891) ?? Marital History - Currently Current Meds 1. No Reported Medications Recorded [place] = N; Record; Last Updated By: Yris Martin; 11/01/2014 10:15:18 AM Allergies 1. No Known Drug Allergies Recorded By: Yris Martin; 10/15/2012 9:29:22 AM Vitals Vital Signs [Data Includes: Current Encounter] Recorded: [id number] 10:01AM Temperature 98.4 F Heart Rate 72 Respiration 16 Weight 181 lb BMI Calculated 24.55 BSA Calculated 2.04 Physical Exam Constitutional General appearance: No acute distress, well appearing and well nourished. Ears, Nose, Mouth, and Throat External inspection of ears and nose: Normal. Otoscopic examination: Tympanic membrane translucent with normal light reflex. Canals patent without erythema. Oropharynx: Normal with no erythema, edema, exudate or lesions. Pulmonary Respiratory effort: No increased work of breathing or signs of respiratory distress. Auscultation of lungs: Clear to auscultation. Cardiovascular Auscultation of heart: Normal rate and rhythm, normal S1 and S2, without murmurs. Examination of extremities for edema and/or varicosities: Normal. Abdomen Abdomen: Abnormal. The abdomen was flat. Bowel sounds were normal. There was tenderness in the epigastric area and in the left upper quadrant. No rebound tenderness. No guarding. There was a negativeMurphy's sign. No masses palpated. Liver and spleen: No hepatomegaly or splenomegaly. Psychiatric Mood and affect: Normal. Left Shoulder: Appearance: Normal. Tenderness: supraspinatus muscle. ROM: Full. Motor:. Normal. Special Tests: negative Hawkin's test and negative Neer test. Assessment 1. Pain in joint of left shoulder (719.41) (M25.512) 2. GERD (gastroesophageal reflux disease) (530.81) (K21.9) Plan GERD (gastroesophageal reflux disease) 1. NexIUM 40 MG Oral Capsule Delayed Release; TAKE 1 CAPSULE DAILY Rx By: Laura Bailey; Dispense: 30 Days ; #:30 Capsule Delayed Release; Refill: 3; For: GERD (gastroesophageal reflux disease); [place] = N; Verified Transmission to [id number]; Last Updated By: Kelin Castellano; 11/01/2014 10:15:45 AM Discussed with patient there is a possibility of a visceral somatic reflux between the irritation of his stomach and his shoulder. The nerves do innervate both areas but actually think that his reflux worsen his sleep and that he probably did something while he is sleeping. It does not quite explain why it worsens when he eats but for now stick with the bland diet. I am going to go ahead and put him Nexium every day for the first week or so. I want him to continue with taking at least one Zantac at bedtime until the PPI has a chance to really start working and if symptoms are not improving over the course of the week I want him to call and let me know and at that point in time we would send him to GI for possible upper endoscopy. Signatures Electronically signed by : Laura Bailey D.O.; Nov 02 2014 9:32AM BULK TANK CAR UNLOADER (Author) documented in this encounter Plan of Treatment Not on file documented as of this encounter Visit Diagnoses Not on filedocumented in this encounter
--- OUTSIDE RECORDS SUMMARY | 2024-10-03 23:53 | XMS_ITS | Encounter Summary ---
Author Organization [facility] Address [address] [address]. [place], [place] [address] [place] [id number] Care Team Providers Care Qual Field Manager Name Role Phone Unavailable Primary Care Provider Unavailabl e Encounter Details Date Type Department Care Team (Latest Contact Info) Description 04/25/2014 Abstract [facility] Medical Group Social History Tobacco Use Types Packs/Day Years Used Date Smoking Tobacco: Never Assessed Sex and Gender Information Value Date Recorded Sex Assigned at Not on file Legal Sex Male 8:16 PM CDT Gender Identity Not on file Sexual Orientation Not on file documented as of this encounter Progress Notes * Laura Bailey DO - 04/25/2014 8:16 AM CDT Verified Results QU-LIPID PANEL [id number] 08:31AM Laura Bailey Test Name Result Flag Reference CHOLESTEROL, TOTAL 128 mg/dL 125-200 HDL CHOLESTEROL 42 mg/dL > OR = 40 TRIGLYCERIDES 106 mg/dL <150 LDL-CHOLESTEROL 65 <130 UNITS: mg/dL (calc) Desirable range <100 mg/dL for patients with CHD or diabetes and <70 mg/dL for diabetic patients with known heart disease. CHOL/HDLC RATIO 3.0 (calc) < OR = 5.0 NON HDL CHOLESTEROL 86 UNITS: mg/dL (calc) Target for non-HDL cholesterol is 30 mg/dL higher than LDL cholesterol target. Test Performed at: [facility] [place] [address] [place] [address] ROSANA LOCKHART DO,MPH QU-IRON AND TOTAL IRON BINDING CAPACITY 7545 [id number] 08:31AM Laura Bailey Test Name Result Flag Reference IRON, TOTAL 75 mcg/dL 45-170 IRON BINDING CAPACITY 354 mcg/dL 250-425 % SATURATION 21 % (calc) 20-50 Test Performed at: [facility] [address] [place] [address] ROSANA LOCKHART DO,MPH QU-BASIC METABOLIC PANEL [id number] 19Apr2014 08:31AM Laura Bailey Test Name Result Flag Reference GLUCOSE 87 mg/dL 65-99 Fasting reference interval UREA NITROGEN (BUN) 9 mg/dL 7-25 CREATININE 0.89 mg/dL 0.60-1.35 eGFR NON-AFR. NIGERIAN 111 > OR = 60 UNITS: mL/min/1.73m2 eGFR 128 > OR = 60 UNITS: mL/min/1.73m2 BUN/CREATININE RATIO 6-22 NOT APPLICABLE (calc) SODIUM 143 mmol/L 135-146 POTASSIUM 5.1 mmol/L 3.5-5.3 CHLORIDE 106 mmol/L 98-110 CARBON DIOXIDE 26 mmol/L 19-30 CALCIUM 9.8 mg/dL 8.6-10.3 Test Performed at: [facility] [address] [place] [address] ROSANA LOCKHART DO,MPH QU-CBC ( INCLUDES DIFF/PLT ) [id number] 19Apr2014 08:31AM Laura Bailey Test Name Result Flag Reference WHITE BLOOD CELL COUNT 4.6 3.8-10.8 UNITS: Thousand/uL RED BLOOD CELL COUNT 4.66 Million/uL 4.20-5.80 HEMOGLOBIN 14.3 g/dL 13.2-17.1 HEMATOCRIT 42.0 % 38.5-50.0 MCV 90.1 fL 80.0-100.0 MCH 30.6 pg 27.0-33.0 MCHC 34.0 g/dL 32.0-36.0 RDW 13.1 % 11.0-15.0 PLATELET COUNT 285 140-400 UNITS: Thousand/uL ABSOLUTE NEUTROPHILS 2498 cells/uL 4222-4038 ABSOLUTE LYMPHOCYTES 1697 cells/uL 850-3900 ABSOLUTE MONOCYTES 317 cells/uL 200-950 ABSOLUTE EOSINOPHILS 55 cells/uL 15-500 ABSOLUTE BASOPHILS 32 cells/uL 0-200 NEUTROPHILS 54.3 % LYMPHOCYTES 36.9 % MONOCYTES 6.9 % EOSINOPHILS 1.2 % BASOPHILS 0.7 % Test Performed at: [facility] [address] [place] [address], [place] [address] ROSANA LOCKHART DO,MPH QU-VITAMIN B12 927 [id number] 08:31AM Laura Bailey Test Name Result Flag Reference VITAMIN B12 333 pg/mL 200-1100 Please Note: Although the reference range for vitamin B12 is 200-1100 pg/mL, it has been reported that between 5 and 10% of patients with values between 200 and 400 pg/mL may experience neuropsychiatric and hematologic abnormalities due to occult B12 deficiency; less than 1% of patients with values above 400 pg/mL will have symptoms. Test Performed at: [facility] [place] [address] [place] [address] ROASNA LOCKHART DO,MPH QU-TSH W/REFLEX TO FT4 [id number] 08:31AM Laura Bailey Test Name Result Flag Reference TSH W/REFLEX TO FT4 1.46 mIU/L 0.40-4.50 Test Performed at: [facility] [address] [address] ROSANA LOCKHART DO,MPH QU-VITAMIN D, 25-HYDROXY, LC/MS/MS [id number] 08:31AM Laura Bailey Test Name Result Flag Reference VITAMIN D, 25-OH, TOTAL 29 ng/mL L 30-100 25-OHD3 indicates both endogenous production and supplementation. 25-OHD2 is an indicator of exogenous sources, such as diet or supplementation. Therapy is based on measurement of Total 25-OHD, with levels <20 ng/mL indicative of Vitamin D deficiency, while levels between 20 ng/mL and 30 ng/mL suggest insufficiency. Optimal levels are > or = 30 ng/mL. VITAMIN D, 25-OH, D3 29 ng/mL See Below Reference Range: Not established VITAMIN D, 25-OH, D2 <4 ng/mL See Below Reference Range: Not established REPORT COMMENT: FASTING Test Performed at: [facility] [id number] [place] [id number] DELPHINE STEVENS MD,FCAP documented in this encounter Plan of Treatment Not on file documented as of this encounter Visit Diagnoses Not on filedocumented in this encounter
--- OUTSIDE RECORDS SUMMARY | 2024-10-03 23:53 | XMS_ITS | Encounter Summary ---
Author Organization [facility] Address [address] [place] [address]. [place], [place] [address] [place] [address] Care Team Providers Care Stand Up Forklift Operator Name Role Phone Unavailable Primary Care Provider Unavailabl e Encounter Details Date Type Department Care Team (Latest Contact Info) Description 01/23/2016 Abstract [facility] Medical Group Social History Tobacco Use Types [...]
--- OUTSIDE RECORDS SUMMARY | 2024-10-03 23:53 | XMS_ITS | Continuity of Care Document ---
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 Social History Type Response Date Comment Sourc e This section is an empty social history section. [facility]D
--- OUTSIDE RECORDS SUMMARY | 2024-10-03 23:53 | XMS_ITS | Referral Summary ---
Author Organization [facility] Address [address] [place] [address] Care Team Providers Care Able Bodied Watchman Name Role Phone Unavailable Primary Care Provider Unavailabl e Source Comments [facility],non-owned Affiliates and Associated Physician Practices is amultiple site organization consisting of ambulatory clinics and hospital sitesin [place], [place], [place] and [place]. This disclosure is being madepursuant to the Care Everywhere program and may not contain all information available regarding this patient. Last updated 18.[facility] Allergies No known active allergies Medications * [...] AFLURIA QUADRIVALENT; 6MO+), 0.5 ML (IIV4) 08/03/2020 Social History Tobacco Use Types Packs/Day Years [...] 02/13/2021 8:34 AM CDT Plan of Treatment Not on file Vadim Felipe Personal/Family Self 1980 (Home) [address] [place] [address]
--- OUTSIDE RECORDS SUMMARY | 2024-10-03 23:53 | XMS_ITS | Continuity of Care Document ---
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 Social History Type Response Date Comment Sourc e This section is an empty social history section. DoD
--- OUTSIDE RECORDS SUMMARY | 2024-10-03 23:53 | XMS_ITS | Encounter Summary ---
Author Organization [facility] Address [address] [facility]. [place], [place] [address] [place] [address] Care Team Providers Care Cold Patcher Name Role Phone Unavailable Primary Care Provider Unavailabl e Encounter Details Date Type Department Care Team (Late st Contact Info) Description 04/19/2014 Abstract [facility] Medical Group Family [place] - [place] [address] [place] [id number] Laura Bailey DO [address] [place] [address] Social History Tobacco Use Types Packs/Day Years Used Date Smoking Tobacco: Never Assessed Sex and Gender Information Value Date Recorded Sex Assigned at Not on file Legal Sex Male 8:16 PM CDT Gender Identity Not on file Sexual Orientation Not on file documented as of this encounter Last Filed Vital Signs Vital Sign Reading Time Taken Comments Blood Pressure 110/70 04/19/2014 7:49 AM CDT Pulse 76 04/19/2014 7:49 AM CDT Temperature - - Respiratory Rate - - Oxygen Saturation - - Inhaled Oxygen Concentration - - Weight 78.9 kg (174 lb) 04/19/2014 7:49 AM CDT Height 182.9 cm (6') 04/19/2014 7:49 AM CDT Body Mass Index 23.6 04/19/2014 7:49 AM CDT documented in this encounter Progress Notes * Laura Bailey DO - 04/19/2014 7:45 AM CDT Reason For Visit Reason For Visit: Health Museum Guide Complaint HERE FOR ANNUAL PHYSICAL SS History of Present Illness HM, Adult Male: The patient is being seen for a health maintenance evaluation. General Health: The patient's health since the last visit is described as good. Lifestyle:. He does not have a healthy diet. He does not have any weight concerns. He exercises regularly. He does not use tobacco. He consumes alcohol. He denies drug use. Reproductive health:. The patient is sexually active. control is being practiced (previous vasectomy ). Screening: Cancer screening reviewed and current. Metabolic screening reviewed and current. HPI: Patient is a 33-year-old male here for annual checkup with a couple of concerns. His sleep cycles he reports have gotten fairly irregular. It started with he just wanted to stay up after the kids went to bed and then he found that he would fall asleep on the couch for half an hour, so he will he get up and move into their bedroom and then sleep for another hour then he would wake up again, and he just has not been getting a lot of sleep may be up to 6 hours. His children are all grown up now that they are sleeping through the night. He thinks he started to do this to himself but what he is concerned about is that he has noticed that it seems to be affecting his memory. He will wake up in the morning and know that what he is thinking about is truly a memory from the night before. However, instead of feeling like a normal memory to him, it actually feels more like a dream or a fuzzy television show and he just does not feel like he is processing things the way he used to. He does have some increased stress going along with the sleep. There is nothing going on in his home life. His marriage and his children are doing well but his job stresses causing him some concerns. He is a vegan and he was wondering if there was may be a vitamin deficiency or something along those lines that was giving him problems. He does not have any other clinical symptoms. No nauseousness. No tremors. No weakness and he just as a whole wanted to make sure there was not something going on. He thought for a while maybe it was because of the beer he was drinking. He was having a couple of beers every night but during Lent which was several months ago, he actually gave up drinking alcohol completely for those 40 days and did have improvement in his cognition or his sleep functions. The only major health thing that has changed is a couple of months ago, he did go ahead and have a vasectomy. He has some tingling to numbness feeling on the lateral aspect of his left thigh where he reports they have put grounding but other than that he has got no other clinical symptoms. Review of Systems Constitutional: not feeling tired, not feeling poorly. ENT: no nasal discharge. Cardiovascular: no chest pain and no palpitations. Respiratory: no cough. Gastrointestinal: no vomiting and no constipation. Neurological: confusion and paresthesias, but no headache, no dizziness, no fainting, no saddle paresthesia, no leg weakness and no difficulty walking. no migraine headache Psychiatric: insomnia, but no irritability, no anxiety, no depression and not suicidal. Endocrine: no hot flashes and no muscle weakness. Active Problems 1. Acute bronchitis (466.0) (J20.9) 2. Acute upper respiratory infection (465.9) (J06.9) Surgical History ?? History of Surgery Of Male Genitalia Vasectomy Family History Paternal Grandfather ?? Family history of Carcinoma Of The Lung (V16.1) Social History ?? Former smoker (V15.82) (Z87.891) ?? Marital History - Currently Current Meds 1. No Reported Medications Recorded [place] = N; Record; Last Updated By: Yris Martin; 04/19/2014 7:51:15 AM Allergies 1. No Known Drug Allergies Recorded By: Yris Martin; 10/15/2012 9:29:22 AM Vitals Recorded by : Yris Martin at [id number] 07:49AM Temperature 98.6 F Heart Rate 76 Respiration 16 Systolic 110 Diastolic 70 Height 6 ft Weight 174 lb BMI Calculated 23.6 BSA Calculated 2.01 Physical Exam Constitutional General appearance: No acute distress, well appearing and well nourished. Eyes Conjunctiva and lids: No erythema, swelling or discharge. Ears, Nose, Mouth, and Throat External inspection of ears and nose: Normal. Otoscopic examination: Tympanic membranes translucent with normal light reflex. Canals patent without erythema. Nasal mucosa, septum, and turbinates: Normal without edema or erythema. Oropharynx: Normal with no erythema, edema, exudate or lesions. Neck Thyroid: Normal, no thyromegaly. Pulmonary Respiratory effort: No increased work of breathing or signs of respiratory distress. Auscultation of lungs: Clear to auscultation. Cardiovascular Auscultation of heart: Normal rate and rhythm, normal S1 and S2, no murmurs. Examination of extremities for edema and/or varicosities: Normal. Abdomen Abdomen: Non-tender, no masses. Liver and spleen: No hepatomegaly or splenomegaly. Musculoskeletal Gait and station: Normal. Psychiatric Mood and affect: Normal. Assessment 1. 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 Memory change (780.93) (R41.3) 3. Diabetes mellitus screening (V77.1) (Z13.1) 4. Lipid screening (V77.91) (Z13.220) Plan Diabetes mellitus screening, Lipid screening, Memory change, Vegans' anemia ?? Basic Metabolic Prof ( BMP ) Status: Hold For - Manual Activation Requested for: [id number] Perform: [facility] Due: [id number]; Ordered; For: Diabetes mellitus screening, Lipid screening, Memory change, Vegans' anemia; Ordered By: Laura Bailey ?? CBC W Differential Status: Active Requested for: [id number] Perform: [facility] Due: [id number]; Ordered; For: Diabetes mellitus screening, Lipid screening, Memory change, Vegans' anemia; Ordered By: Laura Bailey ?? Iron Profile W TIBC Status: Active Requested for: [id number] Perform: [facility] Due: [id number]; Ordered; For: Diabetes mellitus screening, Lipid screening, Memory change, Vegans' anemia; Ordered By: Laura Bailey ?? Lipid Profile Status: Hold For - Manual Activation Requested for: [id number] Perform: [facility] Due: [id number]; Ordered; For: Diabetes mellitus screening, Lipid screening, Memory change, Vegans' anemia; Ordered By: Laura Bailey ?? TSH W Reflex Free T4 Status: Hold For - Manual Activation Requested for: [id number] Perform: [facility] Due: [id number]; Ordered; For: Diabetes mellitus screening, Lipid screening, Memory change, Vegans' anemia; Ordered By: Laura Bailey ?? Vitamin B12 Status: Hold For - Manual Activation Requested for: [id number] Perform: [facility] Due: [id number]; Ordered; For: Diabetes mellitus screening, Lipid screening, Memory change, Vegans' anemia; Ordered By: Laura Bailey ?? Vitamin D 25 - Hydroxy Status: Hold For - Manual Activation Requested for: [id number] Perform: [facility] Due: [id number]; Ordered; For: Diabetes mellitus screening, Lipid screening, Memory change, Vegans' anemia; Ordered By: Laura Bailey Discussed with the patient I think it is due to his poor sleep-wake cycles. I did recommend melatonin for a month to try to help reset his circadian rhythms. I encouraged him to maintain an active exercise plan as that also will help him get back on track and then we will do a little bit more extensive than just the screening labs. I am concerned about anemia or iron deficiency with his vegan diet to make sure that is okay as well as vitamin B12. Given the memory and cognition changes, we will go ahead and check the thyroid as well. We will give him a call or send him a letter when we get those results back. If his symptoms are not improving with improve sleep, he can let us know. Otherwise, he will continue to monitor for now. Signatures Electronically signed by : Laura Bailey D.O.; Apr 19 2014 10:05PM FINISHED CLOTH EXAMINER (Author) documented in this encounter Plan of Treatment Not on file documented as of this encounter Visit Diagnoses Not on filedocumented in this encounter
--- OUTSIDE RECORDS SUMMARY | 2024-10-03 23:53 | XMS_ITS | Encounter Summary ---
Author Organization [facility] Address [address] [place] [address] [place] [address] Care Team Providers Care Sample Color Maker Name Role Phone Kenna Wilson NP Primary Care Provider +2 Reason for Visit * Reason Comments New Patient Pt. Here today to es tablish care with Kenna Wilson NP. Would like labs. Imm/Inj Tdap given in RT. De ltoid. He tolerated well. Encounter Details Date Type Department Care Team (Late st Contact Info) Description 10/13/2022 9:00 AM GEODETIC ENGINEER Office Visit [facility] Family and Sports Medicine - [place] [address] [place] [address] Kenna Wilson NP [address] [place] [address] New Patient (Pt. Here today to establish care with Kenna Wilson NP. Would like labs. ); Imm/Inj (Tdap given in RT. Deltoid. He tolerated well. ) Social History Tobacco Use Types Packs/Day Years [...] Exposure Response Date Recorded In the last 10 days, have yo u been in contact with someone who was confirmed or suspected to have Coronavirus/COVID-19? No / Unsure 10/13/2022 8:43 AM GEODETIC ENGINEER documented as of this encounter Last Filed Vital Signs Vital Sign Reading Time Taken Comments Blood Pressure 117/77 10/13/2022 8:52 AM GEODETIC ENGINEER Pulse 55 10/13/2022 8:52 AM GEODETIC ENGINEER Temperature 36.6 ??C (97.9 ??F) 10/13/2022 8:52 AM CS T Respiratory Rate 18 10/13/2022 8:52 AM GEODETIC ENGINEER Oxygen Saturation 98% 10/13/2022 8:52 AM GEODETIC ENGINEER Inhaled Oxygen Concentration - - Weight 83.9 kg (185 lb) 10/13/2022 8:52 AM GEODETIC ENGINEER Height 182.9 cm (6') 10/13/2022 8:52 AM GEODETIC ENGINEER Body Mass Index 25.09 10/13/2022 8:52 AM GEODETIC ENGINEER documented in this encounter Progress Notes * Kenna Wilson NP - 10/13/2022 9:00 AM CST Vadim Felipe is a 41-year-old male who presents to [facility] and for a routine physical exam. He is been experiencing more brain fog and sleep disruption recently and would like labs checked. He is a vegan and is concerned about vitamin deficiency. . Last tetanus vaccination: unsure, will Last influenza vaccination: this season Last dental exam: regular exams Last comprehensive eye exam: regular exams Last colonoscopy: not needed PAST MEDICAL/SURGICAL HISTORY: History reviewed. No pertinent past medical history. Past Surgical History: Procedure Laterality Date ??? EXTRACT ERUPT TOOTH wisdom teeth- age 16 ??? REMOVAL OF SPERM DUCT(S) 2011 SOCIAL HISTORY: He is currently employed He is , with children. Alcohol intake: intermittent, nothing regular Caffeine intake: consumes approximately 2 drinks per day(s) Smokes: denied Calcium intake: adequate by diet and supplements He does intense regular exercise program, by biking, running and weight lifting. FAMILY HISTORY: Family History Problem Relation Name Age of Onset ??? Glaucoma Mother ??? Thyroid Father ??? Cerebral palsy Brother ??? Retardation/Learning Difficulties Brother ??? Parkinson's Disease Maternal Grandfather Current Outpatient Medications Medication Sig ??? Multiple Vitamin (MULTIVITAMIN ADULT OR) No current facility-administered medications for this visit. Review of patient's allergies indicates: Patient has no known allergies. Review of Systems Constitutional: Negative. HENT: Positive for congestion. Eyes: Negative. Respiratory: Negative. Cardiovascular: Negative. Gastrointestinal: Negative. Genitourinary: Positive for frequency. Musculoskeletal: Negative. Skin: Negative. Neurological: Negative. Endo/Heme/Allergies: Negative. Psychiatric/Behavioral: Negative. Filed Vitals: 10/13/22 0852 BP: 117/77 Pulse: (!) 55 Resp: 18 Temp: 97.9 ??F (36.6 ??C) TempSrc: Temporal SpO2: 98% Weight: 83.9 kg (185 lb) Height: 6' (1.829 m) Physical Exam Constitutional: Appearance: Normal appearance. HENT: Head: Normocephalic. Right Ear: Tympanic membrane, ear canal and external ear normal. Left Ear: Tympanic membrane, ear canal and external ear normal. Nose: Nose normal. Eyes: General: Lids are normal. Conjunctiva/sclera: Conjunctivae normal. Pupils: Pupils are equal, round, and reactive to light. Neck: Thyroid: No thyroid mass or thyromegaly. Trachea: Trachea normal. Cardiovascular: Rate and Rhythm: Normal rate and regular rhythm. Heart sounds: S1 normal and S2 normal. Pulmonary: Effort: Pulmonary effort is normal. Breath sounds: Normal breath sounds. Abdominal: General: Bowel sounds are normal. Palpations: Abdomen is soft. Tenderness: There is no abdominal tenderness. Musculoskeletal: Cervical back: Normal range of motion. Lymphadenopathy: Cervical: No cervical adenopathy. Skin: General: Skin is warm and dry. Neurological: Mental Status: He is alert and oriented to person, place, and time. Gait: Gait is intact. Psychiatric: Mood and Affect: Mood and affect normal. ASSESSMENT/PLAN: 1. Well adult exam 2. Encounter for vitamin deficiency screening - IRON SAT PANEL (IRON,IBC,%SAT); Future - VITAMIN B-12; Future - VITAMIN D, 25 OH; Future - IRON SAT PANEL (IRON,IBC,%SAT) - VITAMIN B-12 - VITAMIN D, 25 OH 3. Screening for diabetes mellitus (DM) 4. Screening for thyroid disorder - TSH W/REFLEX; Future - TSH W/REFLEX 5. Screening, anemia, deficiency, iron - CBC W/DIFF AUTOMATED; Future - CBC W/DIFF AUTOMATED 6. Screening, lipid - COMPREHENSIVE METABOLIC PANEL; Future - LIPID PANEL; Future - COMPREHENSIVE METABOLIC PANEL - LIPID PANEL 7. Encounter for hepatitis C screening test for low risk patient - HEPATITIS C ANTIBODY ([facility] ONLY); Future 8. Need for nnobiaokmf-jfvatly-xgtyveryi (Tdap) vaccine - [05923] Adacel (Tdap) 9. Encounter to establish care with new doctor Encouraged healthy diet and exercise PHQ-9/ABELARDO reviewed and discussed with patient in detail and plan developed if necessary. Return to clinic: prn months for office visit, 1 year for physical exam. ETIC ENGINEER * Kenna Wilson NP - 10/13/2022 9:00 AM CST Your blood count, liver, kidney and thyroid function are good, cholesterol levels are good. Your vit D and Vit B is a little lower than I would like. Please take over the counter supplements for both of these. ETIC ENGINEER documented in this encounter Plan of Treatment Scheduled Orders Name Type Priority Associated Diagnoses Orde r Schedule VITAMIN B-12 Lab Routine Encounter for vitamin deficiency screening Expected: 10/13/2022, Expires: 10/13/2023 documented as of this encounter Procedures Procedure Name Priority Date/Time Associated Diagnosis Comments TSH W/REFLEX Routine 10/13/2022 9:34 AM GEODETIC ENGINEER Screening for thyroid disorder IRON SAT PANEL (IRON,IBC,%SAT) Routine 10/13/2022 9:34 AM GEODETIC ENGINEER Encounter for vitamin deficiency screening VITAMIN B-12 10/13/2022 9:34 AM GEODETIC ENGINEER COMPREHENSIVE METABOLIC PANEL Routine 10/13/2022 9:34 AM GEODETIC ENGINEER Screening, lipid LIPID PANEL Routine 10/13/2022 9:34 AM GEODETIC ENGINEER Screening, lipid CBC W/DIFF AUTOMATED Routine 10/13/2022 9:34 AM GEODETIC ENGINEER Screening, anemia, deficiency, iron VITAMIN D, 25 OH Routine 10/13/2022 9:34 AM GEODETIC ENGINEER Encounter for vitamin deficiency screening documented in this encounter Results * VITAMIN B-12 (10/13/2022 9:34 AM GEODETIC ENGINEER) VITAMIN B12 S/P/B 297 232 - 1,245 pg/mL [facility] 1 10/13/2022 9:34 AM GEODETIC ENGINEER 10/13/2022 Narrative [facility] - 10/14/2022 7:09 AM GEODETIC ENGINEER Performed at: ??01 - [facility] [address], [place], [place] ??[id number] Science Professor: Felipe Song PhD, Phone: ??[phone] Kenna Wilson NP LABORATORY Final Result [facility] [address] [place] [address] [facility] * (ABNORMAL) VITAMIN D, 25 OH (10/13/2022 9:34 AM GEODETIC ENGINEER) VITAMIN D 25 HYDROXY S/P/B 26.4(L) 30.0 - 100.0 ng/mL [facility] 1 Comment: Vitamin D deficiency has been defined by the [place] of [employer] and an Endocrine Society practice guideline as a level of serum 25-OH vitamin D less than 20 ng/mL (1,2). The Endocrine Society went on to further define vitamin D insufficiency as a level between 21 and 29 ng/mL (2). 1. IOM ([place] of [employer]). 2010. Dietary reference ?? intakes for calcium and D. [place]: The ?? National Academies Press. 2. Tammy MF, Sandy [place], Dudley LOZANO, et al. ?? Evaluation, treatment, and prevention of vitamin D ?? deficiency: an Endocrine Society clinical practice ?? guideline. JCEM. 2010; 96(7):1911-30. 10/13/2022 9:34 AM GEODETIC ENGINEER 10/13/2022 Narrative [facility] - 10/14/2022 7:09 AM GEODETIC ENGINEER Performed at: ??01 - [facility] [address] ??[id number] Science Professor: Felipe Song PhD, Phone: ??[phone] us Kenna Wilson NP LABORATORY Final Result Performing Organization Address [facility] de Phone Number [facility] [address] [place] [address] [facility] * TSH W/REFLEX (10/13/2022 9:34 AM GEODETIC ENGINEER) Pathologist [facility] TSH 2.340 0.450 - 4.50 uIU/mL [facility] 1 10/13/2022 9:34 AM GEODETIC ENGINEER 10/13/2022 Narrative [facility] - 10/14/2022 7:09 AM GEODETIC ENGINEER Performed at: ??01 - [facility] ??[id number] Science Professor: Felipe Song PhD, Phone: ??[phone] us Kenna Wilson NP LABORATORY Final Result Performing Organization Address [facility] de Phone Number [facility] [address] [place] [address] [facility] * (ABNORMAL) LIPID PANEL (10/13/2022 9:34 AM GEODETIC ENGINEER) CHOLESTEROL 195 100 - 199 mg/dL [facility] 1 TRIGLYCERIDES 93 0 - 149 mg/dL [facility] 1 HDL 62 >39 mg/dL [facility] 1 VLDL CALCULATION 17 5 - 40 mg/dL [facility] 1 LDL (CALCULATED) 116(H) 0 - 99 mg/dL [facility] 1 10/13/2022 9:34 AM GEODETIC ENGINEER 10/13/2022 Narrative [facility] - 10/14/2022 7:09 AM GEODETIC ENGINEER Performed at: ??01 - [facility] [address] ??[id number] Science Professor: Felipe Song PhD, Phone: ??[phone] us Kenna Wilson NP LABORATORY Final Result Performing Organization Address [facility] de Phone Number [facility] [address] [place] [address] [facility] * IRON SAT PANEL (IRON,IBC,%SAT) (10/13/2022 9:34 AM GEODETIC ENGINEER) Pathologist [facility] IRON BINDING CAPACITY 399 250 - 450 ug/dL [facility] 1 UNBOUND IRON BINDING CAPACITY 319 111 - 343 ug/dL [facility] 1 IRON 80 38 - 169 ug/dL [facility] 1 IRON SATURATION 20 15 - 55 % [facility] 1 10/13/2022 9:34 AM GEODETIC ENGINEER 10/13/2022 Narrative [facility] - 10/14/2022 7:09 AM GEODETIC ENGINEER Performed at: ??01 - [facility] [address] ??[id number] Science Professor: Felipe Song PhD, Phone: ??[phone] Kenna Wilson NP LABORATORY Final Result Performing Organization Address [facility] de Phone Number [facility] [address] [place] [address] [facility] * COMPREHENSIVE METABOLIC PANEL (10/13/2022 9:34 AM GEODETIC ENGINEER) Pathologist [facility] GLUCOSE 84 70 - 99 mg/dL [facility] BUN 16 6 - 24 mg/dL [facility] 1 CREATININE S/P/B 0.79 0.76 - 1.27 mg/dL [facility] 1 GFR ESTIMATE 113 >59 mL/min/1.7 3 [facility] 1 BUN CREATININE RATIO 20 9 - 20 [facility] 1 SODIUM S/P/B 143 134 - 144 mmol/L [facility] 1 POTASSIUM S/P/B 4.5 3.5 - 5.2 mmol/L [facility] 1 CHLORIDE S/P/B 103 96 - 106 mmol/L [facility] 1 CO2 26 20 - 29 mmol/L [facility] 1 CALCIUM S/P/B 9.7 8.7 - 10.2 mg/dL [facility] 1 TOTAL PROTEIN S/P/B 7.6 6.0 - 8.5 g/dL [facility] 1 ALBUMIN S/P/B 5.0 4.0 - 5.0 g/dL [facility] 1 GLOBULIN 2.6 1.5 - 4.5 g/dL [facility] A/G RATIO 1.9 1.2 - 2.2 [facility] 1 BILIRUBIN TOTAL S/P/B 0.3 0.0 - 1.2 mg/dL [facility] 1 ALKALINE PHOSPHATASE S/P/B 99 44 - 121 IU/L [facility] 1 AST 19 0 - 40 IU/L [facility] 1 ALT 19 0 - 44 IU/L [facility] 1 10/13/2022 9:34 AM GEODETIC ENGINEER 10/13/2022 Narrative [facility] - 10/14/2022 7:09 AM GEODETIC ENGINEER Performed at: ?? - [facility] [address] ??[id number] Science Professor: Felipe Song PhD, Phone: ??[phone] Kenna Wilson WEAPONS OFFICER LABORATORY Final Result [facility] [address] [place] [address] [facility] * CBC W/DIFF AUTOMATED (10/13/2022 9:34 AM GEODETIC ENGINEER) WBC 5.1 3.4 - 10.8 x10E3/uL [facility] RBC 5.20 4.14 - 5.80 x10E6/uL [facility] 1 HGB 16.0 13.0 - 17.7 g/dL [facility] 1 HCT 47.8 37.5 - 51.0 % [facility] 1 MCV 92 79 - 97 fL [facility] 1 MCH 30.8 26.6 - 33.0 pg [facility] 1 MCHC 33.5 31.5 - 35.7 g/dL [facility] 1 RDW 12.4 11.6 - 15.4 % [facility] 1 PLATELET COUNT 284 150 - 450 x10E3/uL [facility] 1 NEUTROPHILS % 57 Not Estab. % [facility] 1 LYMPHOCYTES % 29 Not Estab. % [facility] 1 MONOCYTES % 8 Not Estab. % [facility] 1 EOSINOPHILS % 5 Not Estab. % [facility] 1 BASOPHILS % 1 Not Estab. % [facility] 1 ABS. NEUTROPHILS 2.9 1.4 - 7.0 x10E3/uL [facility] 1 ABS. LYMPHOCYTES 1.5 0.7 - 3.1 x10E3/uL [facility] 1 MONOCYTES 0.4 0.1 - 0.9 x10E3/uL [facility] 1 ABS. EOSINOPHILS 0.3 0.0 - 0.4 x10E3/uL [facility] 1 ABS. BASOPHILS 0.0 0.0 - 0.2 x10E3/uL [facility] 1 ABS. IMMATURE GRANULOCYTES 0 Not Estab. % [facility] 1 ABS. IMMATURE GRANULOCYTES 0.0 0.0 - 0.1 x10E3/uL [facility] 1 10/13/2022 9:34 AM GEODETIC ENGINEER 10/13/2022 Narrative [facility] - 10/14/2022 7:09 AM GEODETIC ENGINEER Performed at: ??01 - [facility] [address] ??[id number] Science Professor: Felipe Song PhD, Phone: ??[phone] us Kenna Wilson NP LABORATORY Final Result Performing Organization Address City/State/[facility] Co de Phone Number [facility] [address] [place] [address] [facility] 1 documented in this encounter Visit Diagnoses Diagnosis Well adult exam- Primary Routine general medical examination at a health care facility Encounter for vitamin deficiency screening Screening for other and unspecified endocrine, nutritional, metabolic, and immunity disorders Screening for diabetes mellitus (DM) Screening for diabetes mellitus Screening for thyroid disorder Screening, anemia, deficiency, iron Screening for iron deficiency anemia Screening, lipid Screening for lipoid disorders Encounter for hepatitis C screening test for low risk patient Need for uptakqgvzn-dimhvnv-eqewhkpij (Tdap) vaccine Need for prophylactic vaccination with combined lrhwlyxjcg-mivjdcf-pijmhqbni (DTP) vaccine Encounter to establish care with new doctor Other reasons for seeking consultation documented in this encounter Additional Health Concerns Assessment Noted Time PHQ-9 Depression Total Score: 3 10/13/19 23 9:25 AM GEODETIC ENGINEER documented as of this encounter Care Teams Sample Color Maker Relationship Specialty Start Date End Date Kenna Wilson, WEAPONS OFFICER [address] [place] [address] PCP - General Nurse Practitioner Family 10/13/22 documented as of this encounter
--- OUTSIDE RECORDS SUMMARY | 2024-10-03 23:53 | XMS_ITS | Encounter Summary ---
Author Organization [facility] Address [address] [place] [address]. [place], [place] [address] [place] [address] Care Team Providers Care Animal Shelter Manager Name Role Phone Unavailable Primary Care Provider Unavailabl e Encounter Details Date Type Department Care Team (Late st Contact Info) Description 10/15/[address] [facility] Family Medicine - [place] [address], [address] [place] [address] Laura Bailey DO [address] [place] [address] Social History Tobacco Use Types Packs/Day Years Used Date Smoking Tobacco: Never Assessed Sex and Gender Information Value Date Recorded Sex Assigned at Not on file Legal Sex Male 8:16 PM CDT Gender Identity Not on file Sexual Orientation Not on file documented as of this encounter Last Filed Vital Signs Vital Sign Reading Time Taken Comments Blood Pressure 94/58 10/15/2012 9:25 AM SUBSTITUTE BUS DRIVER Pulse 64 10/15/2012 9:25 AM SUBSTITUTE BUS DRIVER Temperature - - Respiratory Rate - - Oxygen Saturation - - Inhaled Oxygen Concentration - - Weight 83.5 kg (184 lb) 10/15/2012 9:25 AM SUBSTITUTE BUS DRIVER Height 182.9 cm (6') 10/15/2012 9:25 AM SUBSTITUTE BUS DRIVER Body Mass Index 24.95 10/15/2012 9:25 AM SUBSTITUTE BUS DRIVER documented in this encounter Progress Notes * Laura Bailey DO - 10/15/2012 9:30 AM CST Reason For Visit Reason For Visit: Acute Visit Chief Complaint Chief Complaint Free Text: Onset x 1 week with sx of body aches, fatigue and coughing, nasal congestion, chest congestion, Headaches, they all come and go. ss History of Present Illness HPI Free Text: Patient here for on and off flu symptoms for the last week with productive cough. No fever or chills. No sore throat or wheezing. Has cough congestion. Using Tylenol for LOZANO and is efficacious for about 30 minutes then the LOZANO returns. Cold Symptoms: Vadim Felipe presents with complaints of sudden onset of moderate cold symptoms starting about 1 week ago. His symptoms are caused by work contact with URI. Symptoms are improved by cough suppressants. Symptoms are improving. Associated symptoms include post nasal drainage, headache, swollen lymph nodes and fatigue, but no sneezing, no nasal congestion, no runny nose, no scratchy throat, no sore throat, no dry cough, no productive cough, no facial pain, no ear pain, no wheezing and no shortness of breath. Review of Systems Focused-Male: Constitutional: chills and feeling poorly, but no fever and not feeling tired. ENT: no nosebleeds. Past Medical History Patient indicats no significant past medical history. Surgical History Patient indicates no past surgical history. Family History 1. Paternal grandfather's history of Carcinoma Of The Lung V16.1 Social History ?? Former Smoker V15.82 ?? Marital History - Currently Current Meds 1. No Reported Medications Recorded; Record; Last Updated By: Yris Martin Allergies 1. No Known Drug Allergies No Known Drug Allergies Vitals Vital Signs [Data Includes: Current Encounter] 15Oct2012 09:25AM Temperature 98.6 F Heart Rate 64 Respiration 14 Systolic 94 Diastolic 58 BMI Calculated 24.92 BSA Calculated 2.06 Height 6 ft Weight 184 lb Physical Exam Constitutional General appearance: No acute distress, well appearing and well nourished. Head and Face Palpation of the face and sinuses: No sinus tenderness. Eyes Conjunctiva and lids: No erythema, swelling or discharge. Ears, Nose, Mouth, and Throat External inspection of ears and nose: Normal. Nasal mucosa, septum, and turbinates: Normal without edema or erythema. Oropharynx: Normal with no erythema, edema, exudate or lesions. Neck Neck: Supple, symmetric, trachea midline, no masses. Pulmonary Respiratory effort: No increased work of breathing or signs of respiratory distress. Auscultation of lungs: Clear to auscultation. Cardiovascular Auscultation of heart: Normal rate and rhythm, normal S1 and S2, no murmurs. Examination of extremities for edema and/or varicosities: Normal. Assessment 1. Acute Upper Respiratory Infection 465.9 Plan 1. Pseudoephedrine HCl 30 MG Oral Tablet; Take 1 every 6-8 hours as needed; Therapy: 15Oct2012 to (Last Rx:15Oct2012) Ordered; For: Acute Upper Respiratory Infection (465.9); Rx By: Laura Bailey; Dispense: 0 Days ; #:30 Tablet; Refill: 0; Record 2. Drink at least 6 glasses of water or juice a day. Done: 15Oct2012 Ordered; For: Acute Upper Respiratory Infection (465.9); Ordered By: Laura Bailey Signatures Electronically signed by : Laura Bailey D.O.; Oct 15 2012 10:28AM (Author) TITUTE BUS DRIVER documented in this encounter Plan of Treatment Not on file documented as of this encounter Visit Diagnoses Not on filedocumented in this encounter
--- OUTSIDE RECORDS SUMMARY | 2024-10-03 23:53 | XMS_ITS | Patient Health Summary ---
Author Organization [facility] Address [address] [place] [address] Care Team Providers Care Grinder Machine Knife Setter Name Role Phone Unavailable Primary Care Provider Unavailabl e Note from [facility],non-owned Affiliates and Associated Physician Practices is amultiple site organization consisting of ambulatory clinics and hospital sitesin [place], [place], [place] and [place]. This disclosure is being madepursuant to the Care Everywhere program and may not contain all information available regarding this patient. Last updated 18.[facility] Allergies No known active allergies Medications * Be aware that medications may not be up to date on this document. Alwaysverify current medications with the patient. * meloxicam (MOBIC) 15 MG tablet(Started 02/13/2021) Take 1 (one) tablet by mouth once daily 2 refills by 02/13/2022 Active Problems No known active problems Immunizations * INFLUENZA VACCINE, QUADR. (FLUZONE; FLULAVAL; FLUARIX; AFLURIA QUADRIVALENT; 6MO+), 0.5 ML (IIV4)(Given 08/03/2020) Social History Tobacco Use Types Packs/Day Years [...] Mass Index 23.33 02/13/2021 8:34 AM CDT Procedures * XR SHOULDER RIGHT 2VW OR MORE(Performed 02/13/2021) Performed for Right shoulder pain, unspecified chronicity Results * XR SHOULDER RIGHT 2VW OR [...]
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
--- OUTSIDE RECORDS SUMMARY | 2024-10-03 23:53 | XMS_ITS | Encounter Summary ---
Author Organization [facility] Address [address] [place] [address] [place] [address] Care Team Providers Care Medical Office Assistant Name Role Phone Unavailable Primary Care Provider Unavailabl e Reason for Visit * Reason Onset Date Comments Imm Inj 08/03/2020 Encounter Details Date Type Department Care Team (Latest Contact Info) Description 08/03/2020 4:40 PM JAILOR Clinical Support [facility] AT [address] [id number] Need for prophylactic vaccination and inoculation against influenza Social History Tobacco Use Types Packs/Day Years [...] COVID-19? No / Unsure 08/03/2020 4:24 PM JAILOR documented as of this encounter Progress Notes * Alicia Wright - 08/03/2020 4:33 PM CST Flu screening checklist was reviewed with the patient. VIS was given prior to administration. Injection site aseptically cleansed and injection given per Immunization(s) protocol. See Imm/Injections activity for details. OR documented in this encounter Plan of Treatment Not on file documented as of this encounter Visit Diagnoses Diagnosis Need for prophylactic vaccination and inoculation against influenza- Primary documented in this encounter
--- OUTSIDE RECORDS SUMMARY | 2024-10-03 23:53 | XMS_ITS | Encounter Summary ---
Author Organization [facility] Address [address] [place] [address]. [place], [place] [address] [place] [address] Care Team Providers Care Cutter And Paster Press Clippings Name Role Phone Unavailable Primary Care Provider Unavailabl e Encounter Details Date Type Department Care Team (Latest Contact Info) Description 01/25/2014 Abstract [facility] Medical Group Social History Tobacco Use [...]
--- OUTSIDE RECORDS SUMMARY | 2024-10-03 23:53 | XMS_ITS | Encounter Summary ---
Author Organization [facility] Address [address] [place] [address]. [place], [place] [address] [place] [address] Care Team Providers Care Veneer Stacker Name Role Phone Kenna Wilson PHARMACY TECHNICIAN INFUSION Primary Care Provider [phone] Encounter Details Date Type Department Care Team (Latest Contact Info) Description 10/13/2022 Travel Social History Tobacco Use Types Packs/Day Years Used Date Smoking Tobacco: Former Cigarettes 2 5 2 000 - 2005 Cigars Smokeless Tobacco: Never Alcohol Use Standard Drinks/Week [...] Coronavirus/COVID-19? No / Unsure 10/13/2022 8:43 AM REAGENT TENDER HELPER documented as of this encounter Plan of Treatment Not on file documented as of this encounter Visit Diagnoses Not on filedocumented in this encounter Additional Health Concerns Assessment Noted Time PHQ-9 Depression Total Score: 3 10/13/19 23 9:25 AM REAGENT TENDER HELPER documented as of this encounter Care Teams Veneer Stacker Relationship Specialty Start Date End Date Kenna Wilson PHARMACY TECHNICIAN INFUSION [address] [place] [address] PCP - General Nurse Practitioner Family 10/13/22 documented as of this encounter
--- OUTSIDE RECORDS SUMMARY | 2024-10-03 23:54 | XMS_ITS | Encounter Summary ---
Author Organization [facility] Address [address] [place] [address] Care Team Providers Care Oil Expeller Operator Name Role Phone Unavailable Primary Care Provider Unavailabl e Encounter Details Date Type Department Care Team (Late st Contact Info) Description 05/31/2024 External Device Data [facility] ABSTRACTION Provider, Abstract NO ADDRESS ON FILE Social History Tobacco Use Types Packs/Day Years [...]
--- OUTSIDE RECORDS SUMMARY | 2024-10-03 23:54 | XMS_ITS | Encounter Summary ---
Author Organization [facility] Address [address] [facility] Attn: Epic Prelude ADT [place]EM[place]IE SEVILLA [address] Care Team Providers Care Executive Business Coach Name Role Phone Unavailable Primary Care Provider Unavailabl e Encounter Details Date Type Department Care Team (Latest Contact Info) Description 06/27/2024 Travel Social History Tobacco Use Types Packs/Day Years Used Date Smoking Tobacco: Former Cigarettes Alcohol Use Standard Drinks/Week Comments Not Currently 0 (1 standard drink = 0.6 oz pur e alcohol) weekly/socially Sex and Gender Information Value Date Recorded Sex Assigned at Not on file Gender Identity Not on file Sexual Orientation Not on file documented as of this encounter Plan of Treatment Not on file documented as of this encounter Visit Diagnoses Not on filedocumented in this encounter
--- OUTSIDE RECORDS SUMMARY | 2024-10-03 23:54 | XMS_ITS | Encounter Summary ---
Author Organization [facility] Address [address] [facility] Attn: Epic Prelude ADT YOSVANY CABRERAANNEMARIE [address] Care Team Providers Care Transplant Coordinator Name Role Phone Unavailable Primary Care Provider Unavailabl e Encounter Details Date Type Department Care Team (Latest Contact Info) Description 06/01/2024 Travel Social History Tobacco Use Types Packs/Day [...]
--- OUTSIDE RECORDS SUMMARY | 2024-10-03 23:54 | XMS_ITS | Encounter Summary ---
Author Organization [facility] Address [address] [place] [address] Care Team Providers Care Moulder Operator Name Role Phone Unavailable Primary Care Provider Unavailabl e Encounter Details Date Type Department Care Team (Late st Contact Info) Description 05/30/2024 Abstract [facility] Gastroenterology [facility] [address] [place] [address] Provider, Abstract NO ADDRESS ON FILE Social [...]
--- OUTSIDE RECORDS SUMMARY | 2024-10-03 23:54 | XMS_ITS | Encounter Summary ---
Author Organization [facility] Address 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 Role Phone Unavailable Primary Care Provider Unavailabl e Reason for Visit * Auth/Cert (Routine) Specialty Diagnoses / Procedures Referred By Zach t Referred To Contact Perioperative Diagnoses Screen for colon cancer Procedures HI COLONOSCOPY FLX DX W/COLLJ SPEC WHEN PFRMD COLONOSCOPY Leslie Bran MD [address] [facility] [address] [place] [id number] [place] [address] Referral ID Status Reason Start Date Expiration Date Visits Re quested Visits Authorized [id number] 1 1 Encounter Details Date Type Department Care Team (Late st Contact Info) Description 06/27/2024 10:20 AM CDT - 06/27/2024 11:00 AM CDT Surgery [address] [place] [address] Leslie Bran MD [address] [facility] [address] [place] [phone] COLONOSCOPY Surgery Details Date/Time Status Location OR Service Patient Class Case Class Case Type Trauma Case? 06/27/2024 10:20 AM Posted [facility] GI 01 Gastroenterology Outpatient Elective No Panel 1 Procedure LRB Anes Op Region Wound Class Comments COLONOSCOPY N/A Monitored Anesthetic Care Anus Surgeon Surgeon Role Service Panel Leslie Bran MD Primary Gastroenterology 1 documented in this encounter Social History Tobacco Use Types Packs/Day Years Used Date Smoking Tobacco: Former Cigarettes Tobacco Cessation:Counseling Given: Not Answered Alcohol Use Standard Drinks/Week Comments Not Currently 0 (1 standard drink = 0.6 oz pur e alcohol) weekly/socially Sex and Gender Information Value Date Recorded Sex Assigned at Not on file Gender Identity Not on file Sexual Orientation Not on file documented as of this encounter Last Filed Vital Signs Vital Sign Reading Time Taken Comments Blood Pressure 123/82 06/27/2024 10:16 AM CDT Pulse 60 06/27/2024 10:16 AM CDT Temperature 36 ??C (96.8 ??F) 06/27/2024 10:01 AM CDT Respiratory Rate 16 06/27/2024 10:16 AM CDT Oxygen Saturation 98% 06/27/2024 10:16 AM CDT Inhaled Oxygen Concentration - - Weight 81.6 kg (180 lb) 06/27/2024 9:16 AM CDT Height 182.9 cm (6') 06/27/2024 9:16 AM CDT Body Mass Index 24.41 06/27/2024 9:16 AM CDT documented in this encounter Discharge Instructions * Discharge Instructions* Leslie Bran MD - 06/27/2024 9:09 AM CDT Instructions after Colonoscopy After a colonoscopy it is normal to experience some minor ???gas pains?? because of the air that was introduced to your colon during the procedure. Tylenol will help to relieve any discomfort. You may not have a bowel movement for 1-3 days because of the colonoscopy prep. This is normal. DO NOT drink alcohol until tomorrow. DO NOT drive, operate machinery, make critical decisions until tomorrow. Limit activities that require coordination or balance for 24 hours. Resume your previous diet unless otherwise instructed. Resume your previous medications unless otherwise instructed. Notify your physician if you develop any of the following. If you cannot get a hold of your physician, go to the ER for severe pain or fever: Severe pain Fever of 101 degrees F Large amount of bleeding, passing large blood clots, or black tarry stools Redness or soreness at the IV site If tissue samples were taken during the procedure, you will be notified by your [employer] Account with the results. If you do not have a [employer] account, you will receive a letter in the mail. If you have not been notified within two weeks, please call the office. Please NEVER assume that your results are fine if you do not hear from me. It is always possible that results did not get relayed to my o ffice or were somehow overlooked. [facility] [address] [place] [address] Other important numbers to add to our contact info: After hours physician exchange: [phone] To schedule another procedure: Endoscopy Scheduling [phone] Thank you very much for choosing [facility] Gastroenterology. Leslie Bran MD [facility] Inflammatory Bowel Disease/Gastroenterology documented in this encounter H&P Notes * Leslie Bran MD - 06/27/2024 9:08 AM CDT [facility] Pre-Endoscopy History & Physical Date: 06/27/2024 Patient: Vadim Hernández / 43 y.o. / male : 1980 CSN: [id number] Planned procedure: Colonoscopy with possible biopsy/polypectomy Chief Complaint: Screening colonoscopy SUBJECTIVE: Vadim Hernández is a 43 y.o. male who presents for a screening colonoscopy. The patient denies abdominal pain, nausea, emesis, change in bowel habits, melena, or hematochezia.No known family history of colorectal cancer. He is not currently on any anticoagulation/antiplatelet therapy. Review of Systems: General: no unintentional weight loss HEENT: no oral lesions or sores Respiratory: no shortness of breath Cardiovascular: no chest pain Gastrointestinal: as per HPI Genitourinary: no dysuria Musculoskeletal: no new joint discomfort Neuro: no headache Skin: no obvious rashes or lesions on visualized skin Hematology: no abnormal bruising No past medical history on file. Past Surgical History: Procedure Laterality Date HX VASECTOMY HX WISDOM TEETH EXTRACTION Social History Tobacco Use Smoking Status Former Types: Cigarettes Smokeless Tobacco Not on file Social History Substance and Sexual Activity Alcohol Use Not Currently Comment: weekly/socially Family History Problem Relation Name Age of Onset Colon Cancer Neg Hx Not on File No current facility-administered medications for this encounter. OBJECTIVE: Ht 6' (1.829 m) Wt 80.7 kg (178 lb) BMI 24.14 kg/m?? General: pleasant, laying in bed, no distress HEENT: conjunctivae clear Lungs: breathing comfortably Heart: regular rate and rhythm Abdomen: soft, non-tender, non-distended Extremities: no pedal edema Skin: no obvious rashes or lesions on visualized skin Neuro: alert, cooperative, no gross focal signs on exam ASA classification per anesthesia ASSESSMENT: 1. Average risk, screening colonoscopy. PLAN: - Indications for procedure as noted in HPI. - The patient was informed of the indications for the procedure, the risks/benefits and the alternatives, and agreed to proceed. In particular, the patient was informed of the risk of perforation/ (1:1000), medication side effect, infection, a missed lesion, or incomplete examination. In the case of dilatation, the patient was informed of the risk of perforation (1 to 5%). - Will proceed with the above mentioned procedure(s) as scheduled. Leslie Bran MD Gastroenterology [facility] documented in this encounter Procedure Notes * Leslie Bran MD - 06/27/2024 10:00 AM CDTAssociated Order(s): COLONOSCOPY REPORT [facility] Endoscopy [facility] Endoscopy Patient Name: Vadim Hernández Procedure Date: 06/27/2024 Date of : 1980 Age: 43 Attending MD: Leslie Bran MD, Procedure: Colonoscopy Indications: Screening for colorectal malignant neoplasm Providers: Leslie Bran MD Referring MD: Domingo Jones Medicines: Monitored Anesthesia Care Procedure: Informed consent was obtained for the procedure, including moderate sedation after risks were discussed. Based on the pre-procedure assessment, including review of the patient's medical history, medications, allergies, and review of systems, the patient was deemed to be an appropriate candidate for sedation. A timeout was performed. Continuous ECG monitoring, pulse oximetry, blood pressure monitoring, and direct observation were performed. The Colonoscope was introduced through the anus and advanced to the cecum, identified by appendiceal orifice and ileocecal valve. The colonoscopy was performed without difficulty. The patient tolerated the procedure well. The quality of the bowel preparation was excellent. The ileocecal valve, appendiceal orifice, and rectum were photographed. Estimated Blood Loss: Estimated blood loss was minimal. Findings: The perianal and digital rectal examinations were normal. Retroflexion in the right colon was performed. A 4 mm polyp was found in the transverse colon. The polyp was sessile. The polyp was removed with a cold snare. Resection and retrieval were complete. Scattered small-mouthed diverticula were found in the sigmoid colon, descending colon and transverse colon. A 4 mm polyp was found in the rectum. The polyp was sessile. The polyp was removed with a cold snare. Resection and retrieval were complete. The exam was otherwise without abnormality on direct and retroflexion views. Complications: No immediate complications. Impression: - One 4 mm polyp in the transverse colon, removed with a cold snare. Resected and retrieved. - Diverticulosis in the sigmoid colon, in the descending colon and in the transverse colon. - One 4 mm polyp in the rectum, removed with a cold snare. Resected and retrieved. - The examination was otherwise normal on direct and retroflexion views. Recommendation: - Discharge patient to home. - Resume previous diet. - Continue present medications. - Await pathology results. - Repeat colonoscopy in 5-10 years for surveillance based on pathology results. Leslie Bran MD 06/27/2024 9:59:40 AM This report has been signed electronically. Number of Addenda: 0 Procedure Date: 06/27/2024 9:24:45 AM [id number] [address] * Ebony Avendano RN - 06/02/2024 8:56 AM CDT GI PROCEDURE NOTE from Nursing PAT call Patient: Vadim Hernández : 1980 Endoscopist: Surgeon(s): Leslie Bran MD Upcoming Procedure: Procedure to be Performed: Procedure(s): COLONOSCOPY Procedure Date/Time: 06/27/2024 at 1020 Diagnosis/Indication for procedure: Pre-Op Diagnosis Codes: * Screen for colon cancer [Z12.11] Location: [facility] Referring Physician: Domingo Jones Patient's BMI: Body mass index is 24.14 kg/m??. Is patient a candidate for offsite location? yes Medications Type of prep given: CSP Previous procedure's prep was good/adequate for exam: n/a Instructions sent via: Email Anticoagulants: no Relevant prior procedure/pathology: First colonoscopy Past Surgical History: Past Surgical History: Procedure Laterality Date HX VASECTOMY HX WISDOM TEETH EXTRACTION Past Medical History: No past medical history on file. No current facility-administered medications on file prior to encounter. Current Outpatient Medications on File Prior to Encounter Medication Sig Dispense Refill cephALEXin (KEFLEX) 500 mg capsule Take 1 Capsule (500 mg) by mouth every 6 hours for 7 days. 28 Capsule 0 * Anum Manrique RN - 06/01/2024 2:43 PM CDT RESCHEDULED PROCEDURE TEST: Colonoscopy REASON FOR RESCHEDULE: Patient request. Insurance Auth/Cert: OLD APPOINTMENT PHYSICIAN: Dr. Madden DATE AND TIME: 06/15/24 LOCATION: [facility] NEW APPOINTMENT PHYSICIAN: Dr. Bran DATE AND TIME: 06/27/24 LOCATION: [facility] PREP: Not discussed documented in this encounter OR Notes * Anabella-OP - Ebony Avendano RN - 06/02/2024 8:55 AM CDT Images from the original note were not included. ST[facility] KAREN Routine Pre-Anesthesia Protocol for GI Lab Procedures [facility] Approved by: [facility]-Medical Executive Committee Approval Date: 11/05/2023 ORDERS ARE ENTERED ???PER PROTOCOL?? Enter the protocol in the patient???s electronic health record using UniPayrase: [email or web address] Nursing Orders: Monitoring Obtain and record vital signs on admission to [facility] Continuous vital signs (Non-invasive blood pressure, pulse oximetry and cardiac monitoring) for: All inpatients All patients currently taking beta-blockers Patients diagnosed with/or at risk for sleep apnea (e.g., STOP-BANG greater than or equal to 3) Glycemic Control POC glucose for diabetics Notify provider for any POC glucose or serum glucose less than 70 mg/dL. If POC Glucose results arecritical, do not delay treatment. If appropriate, may confirm POC with: Nursing Only [id number] (this lab can be obtained at no cost to the patient when confirming a critical high or Critical low POC glucose. See hypoglycemia protocol for additional orders if needed: [facility] ANE Adult Perianesthesia HYPOglycemia Protocol Notify any provider for any POC glucose or serum glucose greater than 180 mg/dL. When receiving report on an inpatient, confirm if patient is receiving dextrose containing fluids to prevent hypoglycemia. Communicate with the anesthesiologist and request glucose containing fluids be continued or added to intraoperative/intraprocedure fluids. POC glucose within 30 minutes of discharge or transfer to another unit (the time-based intra-procedure POC check may be deferred during short procedures at the discretion of the provider. Laboratory Orders: POC Urine Test (POC7) (if unable to obtain urine, may obtain serum [id number]) All patients with potential for childbearing (menarche to menopause) Medication Orders: Intravenous Line Place #20 gauge IV in non-dominant, non-operative or not otherwise excluded upper extremity unless otherwise ordered by anesthesiologist. Contact responsible anesthesiologist if recommending use of a #22 gauge IV For patients with difficult IV access notify anesthesiologist. For patients with difficult IV access and an implanted infusion port, access the port in accordancewith nursing policies. Local Anesthetic to use to initiate IV line: Lidocaine 2% 0.3mL intradermal ONE TIME to numb area of IV catheter insertion PRN. IV Fluid- Adult patients (age 18 years or greater): Lactated ringer's solution to infuse at 125mL/hr, may discontinue upon discharge from procedure area If patient is found to have a serum creatinine >2 or history of renal failure, RN may change to NS at 10ml/hr documented in this encounter Plan of Treatment Not on file documented as of this encounter Procedures Procedure Name Priority Date/Time Associated Diagnosis Comments HI COLONOSCOPY FLX DX W/COLLJ SPEC WHEN PFRMD 06/27/2024 10:20 AM CDT Screen for colon cancer COLONOSCOPY REPORT 06/27/2024 10 :00 AM CDT PATHOLOGY Pathology 06/27/2024 9:51 AM CDT Screen for colon cancer documented in this encounter Results * COLONOSCOPY REPORT (06/27/2024 10:00 AM CDT) Narrative Procedure Note Leslie Bran MD - 06/27/2024 10:00 AM CDT [facility] Endoscopy [facility] Endoscopy Patient Name: Vadim Hernández Procedure Date: 06/27/2024 Date of : 1980 Age: 43 Attending MD: Leslie Bran MD, Procedure: Colonoscopy Indications: Screening for colorectal malignant neoplasm Providers: Leslie Bran MD Referring MD: Domingo Jones Medicines: Monitored Anesthesia Care Procedure: Informed consent was obtained for the procedure, including moderate sedation after risks were discussed. Based on the pre-procedure assessment, including review of the patient's medical history, medications, allergies, and review of systems, the patient was deemed to be an appropriate candidate for sedation. A timeout was performed. Continuous ECG monitoring, pulse oximetry, blood pressure monitoring, and direct observation were performed. The Colonoscope was introduced through the anus and advanced to the cecum, identified by appendiceal orifice and ileocecal valve. The colonoscopy was performed without difficulty. The patient tolerated the procedure well. The quality of the bowel preparation was excellent. The ileocecal valve, appendiceal orifice, and rectum were photographed. Estimated Blood Loss: Estimated blood loss was minimal. Findings: The perianal and digital rectal examinations were normal. Retroflexion in the right colon was performed. A 4 mm polyp was found in the transverse colon. The polyp was sessile. The polyp was removed with a cold snare. Resection and retrieval were complete. Scattered small-mouthed diverticula were found in the sigmoid colon, descending colon and transverse colon. A 4 mm polyp was found in the rectum. The polyp was sessile. The polyp was removed with a cold snare. Resection and retrieval were complete. The exam was otherwise without abnormality on direct and retroflexion views. Complications: No immediate complications. Impression: - One 4 mm polyp in the transverse colon, removed with a cold snare. Resected and retrieved. - Diverticulosis in the sigmoid colon, in the descending colon and in the transverse colon. - One 4 mm polyp in the rectum, removed with a cold snare. Resected and retrieved. - The examination was otherwise normal on direct and retroflexion views. Recommendation: - Discharge patient to home. - Resume previous diet. - Continue present medications. - Await pathology results. - Repeat colonoscopy in 5-10 years for surveillance based on pathology results. Leslie Bran MD 06/27/2024 9:59:40 AM This report has been signed electronically. Number of Addenda: 0 Procedure Date: 06/27/2024 9:24:45 AM [id number] [address] Leslie Bran MD GI PROCEDURE ORDE RABLES * PATHOLOGY (06/27/2024 9:51 AM CDT) CASE REPORT Surgical Pathology Report ? Case: [id number] ? Authorizing Provider: ??Leslie Bran MD ?? Collected: ? 06/27/2024 09:51 AM ? Ordering Location: ? [facility] Endoscopy ?? Received: ?06/27/2024 02:42 PM ? [facility] ? Pathologist: ? Eloy Florez MD ? Specimens: ?? A) - Colon, transverse, polyp ? B) - Rectum, polyp ? 9:[address] [facility] FINAL DIAGNOSIS Colon, transverse, polyp, polypectomy: - Tubular adenoma. - Negative for high-grade dysplasia. Rectum, polyp, polypectomy: - Hyperplastic polyp. 9:[address] [facility] S DESCRIPTION The specimens are received in two containers each labeled Vadim Hernández . Received in the first container additionally labeled transverse colon polyp are 2 pieces of pink-snow tissue measuring 0.7 and 0.8 cm in greatest dimension. All are submitted in cassette A1. Received in the second container additionally labeled rectum polyp is 1 piece of red-snow tissue measuring 0.7 x 0.3 x 0.3 cm. It is entirely submitted in cassette B1. [facility] 9:[address] [facility] MICROSCOPIC DESCRIPTION The slides are labeled [id number] and Vadim Hernández. Microscopic findings substantiate the above diagnosis. 9:[address] [facility] OPERATIVE PROCEDURE 1: COLONOSCOPY 4 9:47 AM CDT [facility] CLINICAL INFORMATION Z12.11-Screen for colon cancer 4 9:47 AM CDT [facility] COMMENT Special stain, immunohistochemical, and/or in situ hybridization results are interpreted with controls that demonstrate appropriate staining reactions. Note on use of immunohistochemistry reagents and in situ hybridization probes: These tests were developed and their performance characteristics determined by [facility], Department of Laboratory Medicine. It has not been cleared or approved by the U.S. Food and Drug Administration. The FDA has determined that such clearance or approval is not necessary. The test is used for clinical purposes. It should not be regarded as investigational or for research. This laboratory is certified to perform high complexity testing. Frozen section/operating room consultation, gross examination and dissection, and case sign out may have been performed in part or completely in the following laboratories: [facility], CLIA #[id number] [address] [place] [address] [facility], [place] #[id number] [address] [place] [address] [facility], CLIA #[id number] [address] [place] [address] This report was created with the [employer] voice-activated dictation system. Inherent to this system is the possibility of syntax, grammar, punctuation and other errors that could impact the interpretation of the report. If there are interpretative questions about aspects of this report, please contact the performing pathologist. 4 9:47 AM T [facility] Tissue TRANSVERSE COLON STRUCTURE / Unknown Collection / Unknown 06/27/2024 9:51 AM CDT 06/27/2024 2:42 PM CDT Tissue specimen (specimen) ENTIRE RECTUM / Unknown 06/27/2024 9:57 AM CDT 06/27/2024 2:42 PM CDT Leslie Bran MD PATHOLOGY/CYTOLOG Y ORDERABLES [facility] CLIA# [id number] [address] [place] [address] documented in this encounter Visit Diagnoses Diagnosis Screen for colon cancer Special screening for malignant neoplasms, colon Screen for colon cancer Special screening for malignant neoplasms, colon documented in this encounter Administered Medications Inactive Administered Medications - up to 3 most recent administrations Medication Order MAR Action Action Date Dose Rate Site lactated ringers infusion IV, at 125 mL/hr, PRE-PROCEDURE CONTINUOUS, Starting on Thu06/27/24 at 0930, Until Thu06/27/24 at 1228, Routine, Pre-Procedure Restarted 06/27/2024 9:57 AM CDT Continue from Pre-Op 06/27/2024 9:33 AM CDT 125 mL/hr New Bag 06/27/2024 9:25 AM CDT 125 mL/hr documented in this encounter Active and Recently Administered Medications Times are shown in CDT. Continuous Medication Order 06/25/2024 06/26/2024 06/27/2024 lactated ringers infusion IV, at 125 mL/hr, PRE-PROCEDURE CONTINUOUS, Starting on Thu06/27/24 at 0930, Until Thu06/27/24 at 1228, Routine, Pre-Procedure 0917 (New Bag - Prov ider: Elham Vidales CRNA)0925 (New Bag - Provider: Teena Bran RN)0933 (Continue from Pre-Op - Provider: Elham Vidales CRNA)0956 (Paused - Provider: Elham Vidales CRNA - Comment: Switch to gravity)0957 (Restarted - Provider: Elham Vidales CRNA)1003 (Stopped - Provider: Daya Epstein RN) documented in this encounter
--- OUTSIDE RECORDS SUMMARY | 2024-10-03 23:54 | XMS_ITS | Encounter Summary ---
Author Organization [facility] Address [address] [place] [address] Care Team Providers Care Administrative Judge Name Role Phone Unavailable Primary Care Provider Unavailabl e Reason for Visit * Auth/Cert (Routine) Specialty Diagnoses / Procedures Referred By Zach t Referred To Contact Perioperative Diagnoses Screen for colon cancer Procedures [place] COLONOSCOPY FLX DX W/COLLJ SPEC WHEN PFRMD COLONOSCOPY Leslie Bran MD [address] [address] 1 [place] [address] Referral ID Status Reason Start Date Expiration Date Visits Re quested Visits Authorized [id number] 1 1 Encounter Details Date Type Department Care Team (Late st Contact Info) Description 06/27/2024 9:33 AM CDT Anesthesia Event [address] 1 [place] [address] Timothy Dominique MD [facility] [place] [address] Elham Vidales CRNA [address] [place] [address] Anesthesia Record Procedure Summary Procedure Name Responsible Anesthesiologist Anesthesia Start Time Anesthesia Stop Time COLONOSCOPY (Anus) Timothy Dominique MD 06/27/24 0933 1003 Events Date Time Event Comment 06/27/2024 0927 AN Equip Check Anesthesia eq uipment and materials checked in accordance with local policy. 0930 0933 An Start 0933 An Start Data 0933 In Room This event disp lays the In Room time documented in the Surgical Log. Deleting this event will not remove it from the log but will remove it from the Grid and Graph timeline. 0935 Pre-Induction Immediate pre- induction anesthetic assessment performed. Vital signs as noted on graphic. 0936 An Induction 0938 Procedure Start This event d isplays the Procedure Start time documented in the Surgical Log. Deleting this event will not remove it from the log but will remove it from the Grid and Graph timeline. 0939 Anesthesia Ready 0958 Procedure Stop This event di splays the Procedure Stop time documented in the Surgical Log. Deleting this event will not remove it from the log but will remove it from the Grid and Graph timeline. 0959 an stop data 1000 Out of Room This event disp lays the Out of Room time documented in the Surgical Log. Deleting this event will not remove it from the log but will remove it from the Grid and Graph timeline. 1003 An Stop 1003 Hand-off to Receiving Clinic cristian Meds Name Total lidocaine (XYLOCAINE) 2% injection 60 mg propofol (DIPRIVAN) 10??mg/mL injection 250 mg lactated ringers infusion 500 mL * Agents No agents on file. * Blood No blood administrations on file. Lines, Drains, and Airways Type Details Placement Removal Peripheral IV Orientation: Anterio r, Left; Location: Hand; Gauge: 20 gauge; Patient Tolerance: tolerated well 06/27/24 09 by Teena Bran RN 06/27/24 1006 by Daya Epstein RN Supraglottic Airway Type: nasal cannula; Confirmation: end tidal CO2, satisfactory chest rise 06/27/24926 by Elham Vidales CRNA 06/27/24 1006 by Daya Epstein RN documented in this encounter Social History Tobacco Use Types Packs/Day Years Used Date Smoking Tobacco: Former Cigarettes Alcohol Use Standard Drinks/Week Comments Not Currently 0 (1 standard drink = 0.6 oz pur e alcohol) weekly/socially Sex and Gender Information Value Date Recorded Sex Assigned at Not on file Gender Identity Not on file Sexual Orientation Not on file documented as of this encounter OR Notes * Anesthesia Postprocedure Evaluation - Timothy Dominique MD - 06/27/2024 11:59 AM CDT Phase II Postanesthesia Evaluation Including [facility] Modified Pham Score Patient seen and evaluated: [facility] Modified Pham Score: Score: 19 (06/27/24 100) COMMENTS: No apparent Anesthesia related complications RESPIRATORY FUNCTION: Respiration: able to breath and cough freely (06/27/24 100) [2=able to breathe and cough freely, 1=dyspnea, limited breathing or tachypnea, 0=apnea or mechanicventilator] O2 Saturation: able to maintain O2 saturation greater than 92% on room air (06/27/24 1004) [2=able to maintain O2 saturation greater than 92% on room air, 1=needs O2 inhalation to maintain O2 saturation greater than 90%, 0=O2 saturation less than 90% even with O2 supplement] Resp: 16 (06/27/24 1016)SpO2: 98 % (06/27/24 1016) CARDIOVASCULAR FUNCTION: BP: 123/82 (06/27/24 1016) Circulation: BP within 20-49% of preanesthetic level (06/27/24 100) [2=BP within 20% of preanesthetic level, 1=BP within 20-49% of preanesthetic level, 0=BP within 50%of preanesthetic level] MENTAL STATUS, NEURO, ACTIVITY: PATIENT PARTICIPATION IN EVALUATIONyes Consciousness: fully awake (06/27/24 100) [2=fully awake, 1=arousable on calling, 0=not responding] Activity: able to move 4 extremities voluntarily or on command (06/27/24 100) [2=able to move 4 extremities voluntarily or on command, 1=able to move 2 extremities voluntarily or on command, 0=unable to move extremities voluntarily or on command] Ambulation: able to stand up and walk straight, on ordered bedrest, or performing at patient's prior level of function (06/27/24 100) [2=able to stand up and walk straight, on ordered bedrest, or performing at patient's prior level of function, 1=vertigo when erect, 0=dizziness when supine] TEMPERATURE: Temp: 36 ??C (06/27/24 1001) PAIN: Pain: pain free (06/27/241003) [2=pain free, 1=pain handled by oral medication, 0=pain requiring parenteral medication] NAUSEA AND VOMITING: no nausea and no vomiting Fasting/Feeding: able to drink fluids, ice chips or NPO (06/27/241003) [2=able to drink fluids, ice chips or NPO, 1=nauseated, 0=nausea and vomiting] POSTOPERATIVE HYDRATION: well hydrated Intake/Output Summary (Last 24 hours) at 06/27/2024 1159 Last data filed at 06/27/2024 1005 Gross per 24 hour Intake 900 ml Output -- Net 900 ml Urine Output: has voided, adequate urine output per device, or not applicable (06/27/24 100) [2=has voided, adequate urine output per device, or not applicable, 1=unable to void but comfortable, 0=unable to void and uncomfortable] WOUND: Dressing: dry and clean or not applicable (06/27/241003) [2=dry and clean or not applicable, 1=wet, marked and not increasing, 0=growing area of wetness] Timothy Dominique MD 06/27/2024 11:59 AM Post Anesthesia Evaluation Vitals: Vitals Value Taken Time BP 123/82 06/27/24 1016 Temp 36 ??C 06/27/24 1001 Resp 16 06/27/24 1016 SpO2 98 % 06/27/24 1016 Pulse 60 06/27/24 1016 Heart Rate Pain Rating: Anesthesia Post Evaluation No notable events documented. Timothy Dominique MD * Anesthesia Handoff - Elham Vidales CRNA - 06/27/2024 10:02 AM CDT Post-Anesthetic transfer of care report elements to appropriate post-anesthesia recovery environment completed in accordance with procedure. I completed my handoff to the receiving nurse during which we: 1. Identified the patient 2. Identified the responsible provider 3. Reviewed the pertinent medical history 4. Discussed the surgical course 5. Reviewed intra-op anesthesia management and issues during anesthesia 6. Set expectations for post-procedure period 7. Orders as necessary and appropriate for continuation of care are present in Epic. 8. Allowed opportunity for questions and acknowledgement of understanding. Vital Signs: Vitals Value Taken Time BP 103/63 06/27/24 1001 Temp 36 ??C 06/27/24 1001 Resp 16 06/27/24 1001 SpO2 98 % 06/27/24 1001 Pulse 58 06/27/24 1001 Heart Rate 10:02 AM Elham Vidales CRNA * Anesthesia Preprocedure Evaluation - Timothy Dominique MD - 06/27/2024 9:29 AM CDT Relevant Problems No relevant active problems Anesthesia Evaluation Patient summary reviewed Airway TM distance: >3 FB Neck ROM: full Dental - normal exam Pulmonary - negative ROS and normal exam breath sounds clear to auscultation Cardiovascular - negative ROS and normal exam Rhythm: regular Rate: normal ROS comment: No cp angina, no known ASCAD, good et Neuro/Psych - negative ROS GI/Hepatic/Renal - negative ROS (+) bowel prep Endo/Other - negative ROS Abdominal Anesthesia History No history of anesthetic complications, no history of difficult intubation, no history of malignanthyperthermia, no history of PONV and no pseudocholinesterase deficiency. Anesthesia Plan ASA Final: 2 MAC Intravenous induction Mask airway maintenance NPO status > 6 hours Anesthetic plan and risks discussed with Patient. Plan discussed with Surgeon, Other and Anesthesiologist. Post-op Pain Control Plan to use Block for post-op pain control. Smoking Compliance patient did not smoke on day of surgery documented in this encounter Plan of Treatment Not on file documented as of this encounter Visit Diagnoses Not on filedocumented in this encounter Administered Medications Inactive Administered [...] Bag 06/27/2024 9:25 AM CDT 125 mL/hr lidocaine 2 % (XYLOCAINE) injection IV, INTRA-PROCEDURE PRN, Starting on Thu06/27/24 at 0936, Until Thu06/27/24 at 1003, Routine, Anesthesia Intra-op Given 06/27/2024 9:36 AM CDT 60 mg propofoL (DIPRIVAN) injection IV, INTRA-PROCEDURE PRN, Starting on Thu06/27/24 at 0936, Until Thu06/27/24 at 1003, Anesthesia Intra-op Given 06/27/2024 9:51 AM CDT 50 mg Given 06/27/2024 9:46 AM CDT 50 mg Given 06/27/2024 9:42 AM CDT 50 mg documented in this encounter
--- OUTSIDE RECORDS SUMMARY | 2024-10-03 23:54 | XMS_ITS | Encounter Summary ---
Author Organization [facility] Address [address] [place] [address] Care Team Providers Care Analytics Senior Manager Name Role Phone Unavailable Primary Care Provider Unavailabl e Encounter Details Date Type Department Care Team (Late st Contact Info) Description 10/14/2020 8:30 AM LEARNING SERVICES COORDINATOR Immunization [facility] [address] [address] High priority for 2019 novel coronavirus vaccination (Primary Dx) Social History Tobacco Use Types [...] have Coronavirus / COVID-19? No / Unsure 10/14/2020 8:25 AM LEARNING SERVICES COORDINATOR documented as of this encounter Plan of Treatment Not on file documented as of this encounter Visit Diagnoses Diagnosis High priority for 2019 novel coronavirus vaccination- Primary documented in this encounter
--- OUTSIDE RECORDS SUMMARY | 2024-10-03 23:54 | XMS_ITS | Encounter Summary ---
Author Organization [facility] Address [address] [facility] Attn: Epic Prelude ADT [place] [address] Care Team Providers Care Information Resource Consultant Name Role Phone Unavailable Primary Care Provider Unavailabl e Encounter Details Date Type Department Care Team (Latest Contact Info) Description 11/06/2020 Travel Social History Tobacco Use Types Packs/Day [...] have Coronavirus / COVID-19? No / Unsure 11/06/2020 7:01 AM STARBUCKS CLERK documented as of this encounter Plan of Treatment Not on file documented as of this encounter Visit Diagnoses Not on filedocumented in this encounter
--- OUTSIDE RECORDS SUMMARY | 2024-10-03 23:54 | XMS_ITS | Encounter Summary ---
Author Organization [facility] Address [address] [place] [address] Care Team Providers Care Marine Steward Name Role Phone Unavailable Primary Care Provider Unavailabl e Encounter Details Date Type Department Care Team (Late st Contact Info) Description 05/27/2024 External Device Data STL ABSTRACTION Provider, Abstract [...]
--- OUTSIDE RECORDS SUMMARY | 2024-10-03 23:54 | XMS_ITS | Encounter Summary ---
Author Organization [facility] Address [address] [place] [address] Care Team Providers Care Medical Laboratory Technician Name Role Phone Unavailable Primary Care Provider [...]
--- OUTSIDE RECORDS SUMMARY | 2024-10-03 23:54 | XMS_ITS | Clinical Summary ---
Author Organization [facility] Address [address] [place] [address] Phone Care Team Providers Care Lead Refiner Name Role Phone Unavailable Primary Care Provider Unavailabl e Allergies No known active allergies Medications Medication Sig Dispensed Refills Start Date End Date Status FLUoxetine (PROzac) 20 mg capsule Take 1 capsule (20mg) by mouth daily 90 Capsule 09/27/2024 Active amoxicillin-clavu lanate (AUGMENTIN) 875-125 mg tablet Take 1 Tablet by mouth 2 times daily for 10 days. 20 Tablet 09/28/2024 10/08/2024 Active predniSONE (DELTASONE) 20 mg tablet Take 2 Tablets (40 mg) by mouth daily for 5 days. 10 Tablet 09/28/2024 10/03/2024 Active FLUoxetine (PROzac) 20 mg capsule Take 1 Capsule (20 mg) by mouth daily for 6 weeks 42 Capsule 08/23/2024 09/27/2024 Discontinued (Reorder) Active Problems No known active problems Immunizations Name Administration Dates Next Due ([employer])(12 YR UP) COVID-19 VACCINE - EMERGENCY USE AUTHORIZATION, MRNA, [id number](PF) 30 MCG/0.3 ML IM SUSP 11/06/2020,10/14/2020 Influenza Seasonal Unspecified Formulation IM ,08/18/2023 Family History Medical History Relation Name Comments Colon Cancer Neg Hx Social History Tobacco Use Types Packs/Day Years [...] Mass Index 24.41 06/27/2024 9:16 AM CDT Plan of Treatment Health Maintenance Due Date Last Done Comments HEPATITIS B VACCINES (1 of 3 - 19+ 3-dose series) 1997 FIT-DNA Q 3 years 12/26/2023 FIT/FOBT Q 1 year 12/26/2023 Flex Sig/CT Colonography Q 5 years 12/26/2023 COVID-19 Vaccine (2023-2 5 season) 2024 11/06/2020, 10/14/2020 COLORECTAL SCREENING 06/27/2031 06/27/2024, 06/27/2024 Colorectal Cancer Screening 06/27/2031 DTAP/TDAP/TD VACCINES (2 - T d or Tdap) 10/13/2032 10/13/2022 INFLUENZA VACCINE Completed 05/24/2024, 08/18/2023, 08/03/2020 HPV VACCINES Aged Out No longer eligi ble based on patient's age to complete this topic PNEUMOCOCCAL VACCINE 0-64 YEARS Aged Out No longer eligible b ased on patient's age to complete this topic Procedures Procedure Name Priority Date/Time Associated Diagnosis Comments COLONOSCOPY REPORT 06/27/2024 10 :00 AM CDT from Last 3 Months or Most Recently Relevant to Health Maintenance Results * COLONOSCOPY REPORT (06/27/2024 10:00 AM CDT) Narrative Procedure Note Leslie Bran MD - 06/27/2024 10:00 AM CDT [facility] Endoscopy [facility] Endoscopy Patient Name: Vadim Hernández Procedure Date: [...] Addenda: 0 Procedure Date: 06/27/2024 9:24:45 AM [address] [address] Leslie Bran MD GI PROCEDURE ORDE CAMERON from Last 3 Months or Most Recently Relevant to Health Maintenance Advance Directives For more information, please contact: [phone] * Full Code (Latest Code Status on File) Date Activated Date Inactivated Comments 06/27/2024 9:15 AM 06/27/2024 12:33 PM
--- OUTSIDE RECORDS SUMMARY | 2024-10-03 23:54 | XMS_ITS | Encounter Summary ---
Author Organization [facility] Address [address] [place] [address] Care Team Providers Care Files Supervisor Name Role Phone Unavailable Primary Care Provider Unavailabl e Reason for Visit * Auth/Cert (Routine) Specialty Diagnoses / Procedures Referred By Zach t Referred To Contact Perioperative Diagnoses Screen for colon cancer Procedures [place] COLONOSCOPY FLX DX W/COLLJ SPEC WHEN PFRMD COLONOSCOPY Leslie Bran MD [address] [address] [place] [address] Referral ID Status Reason Start Date Expiration Date Visits Re quested Visits Authorized [id number] 1 1 Encounter Details Date Type Department Care Team (Latest Contact Info) Description 06/27/2024 9:08 AM CDT - 06/27/2024 10:27 AM CDT Hospital Encounter [address] [place] [address] Leslie Bran MD [address] [facility] [address] [place] [address] Screen for colon cancer Discharge Disposition: Home or Self Care Social [...] procedure, you will be notified by your [employer] Account with the results. If you do not have a [employer] account, you will receive a letter in the mail. If you have not been notified within two weeks, please call the office. Please NEVER assume that your results are fine if you do not hear from me. It is always possible that results did not get relayed to my o ffice or were somehow overlooked. [facility] [address] [place] [address] Other important numbers to add to our contact info: After hours physician exchange: [phone] To schedule another procedure: Endoscopy Scheduling [phone] Thank you very much for choosing [facility] Gastroenterology. Leslie Bran MD [facility] Inflammatory Bowel Disease/Gastroenterology documented in this encounter H&P Notes * Leslie Bran MD - 06/27/2024 9:08 AM CDT [facility] Pre-Endoscopy History & Physical Date: 06/27/2024 Patient: Vadim Hernández / 43 y.o. / male : 1980 CSN: [id number] Planned procedure: Colonoscopy with possible biopsy/polypectomy Chief [...] procedure(s) as scheduled. Leslie Bran MD Gastroenterology [facility] documented in this encounter Procedure Notes * Leslie Bran MD - 06/27/2024 10:00 AM CDTAssociated Order(s): COLONOSCOPY REPORT [facility] Endoscopy [facility] Endoscopy Patient Name: Vadim Hernández Procedure [...] Addenda: 0 Procedure Date: 06/27/2024 9:24:[address] [place] [address] * Ebony Avendano RN - 06/02/2024 8:56 AM CDT GI PROCEDURE NOTE from Nursing PAT call Patient: Vadim Hernández : 1980 Endoscopist: Surgeon(s): Leslie Bran MD Upcoming Procedure: Procedure to be Performed: Procedure(s): COLONOSCOPY Procedure Date/Time: 06/27/2024 at 1020 Diagnosis/Indication for procedure: Pre-Op Diagnosis Codes: * Screen for colon cancer [Z12.11] Location: [facility] Referring Physician: Domingo Jones Patient's [...] Dr. Madden DATE AND TIME: 06/15/24 LOCATION: [facility] NEW APPOINTMENT PHYSICIAN: Dr. Bran DATE AND TIME: 06/27/24 LOCATION: [facility] PREP: Not discussed documented in this encounter OR Notes * Anabella-OP - Ebony Avendano RN - 06/02/2024 8:55 AM CDT Images from the original note were not included. [facility] ANES Routine Pre-Anesthesia Protocol for GI Lab Procedures [facility] Approved by: [facility]-Medical Executive Committee Approval Date: 11/05/2023 ORDERS ARE ENTERED ???PER PROTOCOL?? Enter the protocol in the patient???s electronic health record using [employer]: .anestprotocolgilab Nursing Orders: Monitoring Obtain and record vital signs on admission to [facility] Continuous vital signs (Non-invasive blood [...] appropriate, may confirm POC with: Nursing Only [id number] (this lab can be obtained at no cost to the patient when confirming a critical high or Critical low POC glucose. See hypoglycemia protocol for additional orders if needed: [facility] ANES Adult Perianesthesia HYPOglycemia Protocol Notify any provider [...] unable to obtain urine, may obtain serum [id number]) All patients with potential for childbearing (menarche [...] Procedure Name Priority Date/Time Associated Diagnosis Comments [place] COLONOSCOPY FLX DX W/COLLJ SPEC WHEN PFRMD 06/27/2024 10:20 AM CDT Screen for colon cancer COLONOSCOPY REPORT 06/27/2024 10 :00 AM CDT PATHOLOGY Pathology 06/27/2024 9:51 AM CDT Screen for colon cancer documented in this encounter Results * COLONOSCOPY REPORT (06/27/2024 10:00 AM CDT) Narrative Procedure Note Leslie Bran MD - 06/27/2024 10:00 AM CDT [facility] Endoscopy Patient Name: Vadim Hernández Procedure [...] Addenda: 0 Procedure Date: 06/27/2024 9:24:45 AM [address] [address] Leslie Bran MD GI PROCEDURE ORDE RABLES * PATHOLOGY (06/27/2024 9:51 AM CDT) CASE REPORT Surgical Pathology Report ? Case: [id number] ? Authorizing Provider: ??Leslie Bran MD ?? Collected: ? 06/27/2024 09:51 AM ? Ordering Location: ? [facility] Endoscopy ?? Received: ?06/27/2024 02:42 PM ? [facility] ? Pathologist: ? Eloy Florez MD ? Specimens: ?? A) - Colon, transverse, polyp ? B) - Rectum, polyp ? 9:47 AM [facility] FINAL DIAGNOSIS Colon, transverse, polyp, polypectomy: - Tubular adenoma. - Negative for high-grade dysplasia. Rectum, polyp, polypectomy: - Hyperplastic polyp. 4 9:47 AM [facility] S DESCRIPTION The specimens are received [...] It is entirely submitted in cassette B1. [facility] 9:47 AM [facility] MICROSCOPIC DESCRIPTION The slides are labeled [id number] and Vadim Hernández. Microscopic findings substantiate the above diagnosis. 9:47 AM [facility] OPERATIVE PROCEDURE 1: COLONOSCOPY 9:47 AM [facility] CLINICAL INFORMATION Z12.11-Screen for colon cancer 9:47 AM [facility] COMMENT Special stain, immunohistochemical, and/or in situ hybridization results are interpreted with controls that demonstrate appropriate staining reactions. Note on use of immunohistochemistry reagents and in situ hybridization probes: These tests were developed and their performance characteristics determined by [facility] Department of Laboratory Medicine. It has not [...] part or completely in the following laboratories: [facility], CLIA #[id number] [address] [place] [address] [facility], CLIA #[id number] [address] [place] [address] [facility], CLIA #[id number] [address] [place] [address] This report was created with the [employer] voice-activated dictation system. Inherent to this system is the possibility of syntax, grammar, punctuation and other errors that could impact the interpretation of the report. If there are interpretative questions about aspects of this report, please contact the performing pathologist. 9:47 AM CDT [facility] Tissue TRANSVERSE COLON STRUCTURE / Unknown Collection / Unknown 06/27/2024 9:51 AM CDT 06/27/2024 2:42 PM CDT Tissue specimen (specimen) ENTIRE RECTUM / Unknown 06/27/2024 9:57 AM CDT 06/27/2024 2:42 PM CDT Leslie Bran MD PATHOLOGY/CYTOLOG Y ORDERABLES [facility] CLIA# [id number] [address] [facility] [place] [address] documented in this encounter Visit Diagnoses Diagnosis [...] Bran RN)0933 (Continue from Pre-Op - Provider: lEham Vidales CRNA)0956 (Paused - Provider: Elham Vidales CRNA - Comment: Switch to gravity)0957 (Restarted - Provider: Elham Vidales CRNA)1003 (Stopped - Provider: Daya Epstein RN) documented in this encounter
--- OUTSIDE RECORDS SUMMARY | 2024-10-03 23:54 | XMS_ITS | Encounter Summary ---
Author Organization [facility] Address [address] Attn: Epic Prelude ADT [place]EM[place] [address] Care Team Providers Care Bread Molder Name Role Phone Unavailable Primary Care Provider Unavailabl e Encounter Details Date Type Department Care Team (Latest Contact Info) Description 10/14/2020 Travel Social History Tobacco Use Types Packs/Day [...] COVID-19? No / Unsure 10/14/2020 8:25 AM HOSPITAL SECRETARY documented as of this encounter Plan of Treatment Not on file documented as of this encounter Visit Diagnoses Not on filedocumented in this encounter
--- OUTSIDE RECORDS SUMMARY | 2024-10-03 23:54 | XMS_ITS | Encounter Summary ---
Author Organization [facility] Address [address] [place] [address] Care Team Providers Care Ski Edge Painter Name Role Phone Unavailable Primary Care Provider Unavailabl e Encounter Details Date Type Department Care Team (Late st Contact Info) Description 11/06/2020 7:05 AM AUTOPSY PATHOLOGIST Immunization [facility] COVID Vaccine Clinic [address] [address] High priority for 2019 novel coronavirus vaccination [...] COVID-19? No / Unsure 11/06/2020 7:01 AM AUTOPSY PATHOLOGIST documented as of this encounter Plan of Treatment Not on file documented as of this encounter Visit Diagnoses Diagnosis High priority for 2019 novel coronavirus vaccination- Primary documented in this encounter
--- OUTSIDE RECORDS SUMMARY | 2024-10-03 23:54 | XMS_ITS | Encounter Summary ---
Author Organization [facility] Address [address] [place] [address] Care Team Providers Care Mower Operator Name Role Phone Unavailable Primary Care Provider Unavailabl e Encounter Details Date Type Department Care Team (Late st Contact Info) Description 06/21/2024 External Device Data [facility] ABSTRACTION Provider, Abstract [...]
--- OUTSIDE RECORDS SUMMARY | 2024-10-03 23:54 | XMS_ITS | Encounter Summary ---
Author Organization [facility] Address [address] [place] [address] Care Team Providers Care Clinical Account Specialist Name Role Phone Unavailable Primary Care [...]
== END 2024-09-27 15:17 | disposition home or self-care (01) ==
LOC: ANHIMG 15:19
PROVIDERS: PCP Nurse Practitioner Family; Visit Provider Nurse Practitioner Family
DX: R05.9 Cough, unspecified (principal)
CPT/HCPCS: 71046